=== PATIENT | male | born 1960 | race Caucasian/White ===

== ENCOUNTER 2017-11-09 00:29 | Observation (INO) | payer OTHER ==
--- OUTSIDE RECORDS SUMMARY | 2017-11-09 00:32 | XMS REPORT | Clinical Summary ---
:1960 Author Organization [facility] Address [address] [place] [address] Care Team Providers Name Role Phone Asked, No Pcp Primary Care Provider Unavailable Allergies Active Allergy Reactions Severity Noted Date Comments Codeine Rash Low 09/20/2015 "it just messes my stomach all up". "it just messes my stomach all up". Ibuprofen GI Intolerance, Nausea 02/14/2005 Hurts my stomach And Vomiting Now reports that it doesn't bother him at all Stomach Upset Nitro Swelling 06/26/2015 Pt reports tongue swelling. Nitroglycerin 09/20/2015 Tongue swelling Pseudoephedrine-Ibuprofe Rash Low 11/06/2007 n Quetiapine 06/15/2017 Pt states that he gets the shakes Tramadol Rash, GI Intolerance Low 09/05/2017 Trazodone Other (See Comments) 06/15/2017 PT states that he gets shakes Current Medications Prescription Sig. Disp. Refills Start Date End Date Status aspirin (ECOTRIN) Take 81 mg by 09/01/2015 Active 81 MG enteric mouth every coated tablet morning. atorvastatin Take 40 mg by 09/01/2015 Active (LIPITOR) 40 MG mouth every tablet morning. SYMBICORT 160-4.5 inhale 1 puff 3 08/29/2015 Active mcg/actuation by mouth twice inhaler daily albuterol (PROAIR Inhale 2 puffs Active HFA,PROVENTIL every 4 (four) HFA,VENTOLIN HFA) hours as needed 90 mcg/actuation for wheezing or inhaler shortness of breath. busPIRone (BUSPAR) Take 10 mg by Active 10 MG tablet mouth 2 (two) times a day. HYDROcodone-acetami Take 1 tablet Active nophen (NORCO) by mouth every 10-325 mg per 8 (eight) hours tablet as needed for moderate pain. sertraline (ZOLOFT) Take 50 mg by 06/16/2017 Active 50 MG tablet mouth every morning. levothyroxine Take 112 mcg by 06/16/2017 Active (SYNTHROID, mouth every LEVOXYL) 112 mcg morning. tablet metoprolol Take 25 mg by 06/04/2017 Active succinate XL mouth every (TOPROL-XL) 25 mg morning. 24 hr tablet XARELTO 20 mg Take 20 mg by 08/22/2017 Active tablet mouth every morning. thiamine 100 MG Take 100 mg by Active tablet mouth every morning. levothyroxine Take 100 mcg by 09/01/2015 Discontinued (SYNTHROID, mouth daily. 8 LEVOTHROID) 100 MCG tablet fluticasone 2 sprays by Discontinued (FLONASE) 50 Each Nare route 8 mcg/actuation nasal daily. spray zolpidem (AMBIEN) 5 Take 5 mg by Discontinued MG tablet mouth nightly 8 as needed for sleep. paliperidone Inject 234 mg Discontinued palmitate (INVEGA into the 8 Sustenna) 234 shoulder, mg/1.5 mL syringe thigh, or buttocks every 28 days. lithium 150 MG Take by mouth 3 Discontinued capsule (three) times a 8 day with meals. Patient does not know dose,hasn't taken for past week QUEtiapine Take 300 mg by Discontinued (SEROquel) 100 MG mouth nightly. 8 tablet traZODone (DESYREL) Take 300 mg by Discontinued 100 MG tablet mouth nightly. 8 rivaroxaban Take 1 tablet 28 tablet 0 06/18/2017 (XARELTO) 15 mg (15 mg total) 8 tablet by mouth 2 (two) times a day for 14 days. amIODarone Take 200 mg by Discontinued (PACERONE) 200 MG mouth 2 (two) 8 tablet times a day. amIODarone Take 1 tablet 30 tablet 0 09/07/2017 (PACERONE) 200 MG (200 mg total) 8 tablet by mouth daily for 30 days. Active Problems Problem Noted Date Chest pain 09/05/2017 Pulmonary embolus 06/15/2017 Bradycardia 09/18/2016 Atrial fibrillation with RVR 09/18/2016 Bipolar 2 disorder 08/17/2016 PE (pulmonary thromboembolism) 08/17/2016 Acute renal failure 08/16/2016 Atrial fibrillation with rapid ventricular response 05/10/2016 Dysrhythmia, cardiac 04/30/2016 Chest pressure 09/20/2015 Encounters Date Type Specialty Care Team Description 10/22/2017 Emergency Emergency Kenn, Nathaly Chronic bilateral low Medicine DO Alannah back pain without sciatica (Primary Dx) 10/17/2017 Emergency Emergency Gemignani, Chronic midline low Medicine Abram Epps MD back pain, with sciatica presence unspecified (Primary Dx) 10/17/2017 Emergency Emergency Kenn, Nathaly Homicidal ideation (Primary Dx); Medicine DO Alannah Drug dependency 10/12/2017 Emergency Emergency Bray, Boi Chronic chest pain Medicine MD Rosana (Primary Dx) 10/11/2017 Emergency Emergency Walden, Chest pain in adult (Primary Dx); Medicine Mauricio Midline low back pain without sciatica, unspecified chronicity DO Abram 09/29/2017 Emergency Emergency Gemignani, Chest pain, Medicine Abram Epps MD unspecified type (Primary Dx) 09/23/2017 Emergency Emergency Gemignani, Chest pain, Medicine Abram Epps MD unspecified type (Primary Dx) 09/22/2017 Emergency Emergency Thuani, Chest pain, Medicine Clinton Bah MD unspecified type (Primary Dx) 09/22/2017 Emergency Emergency Kenneth House MD Chest pain in adult ( Primary Dx); Medicine Elevated CK 09/05/2017 - Emergency General Surgery Marcantel, Chest pain, 09/06/2017 Gurpreet Hale MD unspecified type [place], (Primary Dx) DO Jarret 06/30/2017 Patient Outreach Quality Dionne Walden, JASIEL 06/30/2017 Documentation General Internal Aris Chowdhury Medicine MD Tracey 06/28/2017 - Hospital Encounter General Internal Keshav Gamboa MD Atrial fibrillation with RVR (Primary Dx); 06/30/2017 Medicine Sade, Chest pain, unspecified type; MD Edin Dehydration; Other acute pulmonary embolism without acute cor pulmonale; Tachycardia; Anticoagulated by anticoagulation treatment 06/18/2017 Patient Outreach Quality Francia Ruiz, RN 06/15/2017 - Hospital Encounter General Surgery Nathaly Hawk Other acute pulmonary 06/18/2017 Alannah, DO embolism without acute Smith, Blair Vaca, cor pulmonale (Primary MD Dx) after 11/08/2016 Immunizations Name Dates Previously Given Next Due Tdap 08/16/2016 Social History Tobacco Use Types Packs/Day Years Used Date Current Every Day Smoker Cigars 0 Smokeless Tobacco: Never Used Tobacco Cessation: Counseling Given: Yes Alcohol Use Drinks/Week oz/Week Comments No Sex Assigned at Date Recorded Not on file Last Filed Vital Signs Vital Sign Reading Time Taken Blood Pressure 132/73 10/22/2017 2:30 AM CDT Pulse 79 10/22/2017 2:30 AM CDT Temperature 36.4 C (97.5 F) 10/22/2017 2:30 AM CDT Respiratory Rate 17 10/22/2017 2:30 AM CDT Oxygen Saturation 96% 10/22/2017 2:30 AM CDT Inhaled Oxygen Concentration - - Weight 80.3 kg (177 lb) 10/22/2017 2:30 AM CDT Height 185.4 cm (6' 1") 10/22/2017 2:30 AM CDT Body Mass Index 23.35 10/22/2017 2:30 AM CDT Plan of Treatment Health Maintenance Due Date Last Done Comments COLON CANCER SCREENING 2008 SHINGRIX VACCINE (#1) 2008 INFLUENZA VACCINE 09/29/2017 Procedures Procedure Name Priority Date/Time Associated Comments Diagnosis ECG ED PRELIMINARY Routine 10/22/2017 2:34 Results for this INTERPRETATION AM CDT procedure are in the results section. ECG 12-LEAD Routine 10/22/2017 2:30 Results for this AM CDT procedure are in the results section. CT LUMBAR SPINE WO STAT 10/17/2017 7:19 Results for this CONTRAST PM CDT procedure are in the results section. URINE DRUGS OF ABUSE STAT 10/17/2017 7:50 Results for this SCREEN AM CDT procedure are in the results section. URINALYSIS SCREEN AND STAT 10/17/2017 7:50 Results for this MICROSCOPY, WITH REFLEX AM CDT procedure are in TO CULTURE the results section. URINE CULTURE STAT 10/17/2017 7:50 Results for this AM CDT procedure are in the results section. ESTIMATED GFR STAT 10/17/2017 7:15 Results for this AM CDT procedure are in the results section. SALICYLATE LEVEL STAT 10/17/2017 7:15 Results for this AM CDT procedure are in the results section. ACETAMINOPHEN LEVEL STAT 10/17/2017 7:15 Results for this AM CDT procedure are in the results section. ALCOHOL LEVEL, BLOOD STAT 10/17/2017 7:15 Results for this AM CDT procedure are in the results section. THYROID STIMULATING STAT 10/17/2017 7:15 Results for this HORMONE AM CDT procedure are in the results section. COMPREHENSIVE METABOLIC STAT 10/17/2017 7:15 Results for this PANEL AM CDT procedure are in the results section. HC COMPLETE BLD COUNT STAT 10/17/2017 7:15 Results for this W/AUTO DIFF AM CDT procedure are in the results section. ECG ED PRELIMINARY Routine 10/17/2017 7:10 Results for this INTERPRETATION AM CDT procedure are in the results section. ECG 12-LEAD STAT 10/17/2017 6:51 Results for this AM CDT procedure are in the results section. ECG ED PRELIMINARY Routine 10/12/2017 9:29 Results for this INTERPRETATION AM CDT procedure are in the results section. ESTIMATED GFR STAT 10/12/2017 8:03 Results for this AM CDT procedure are in the results section. TROPONIN STAT 10/12/2017 8:03 Results for this AM CDT procedure are in the results section. HC COMPLETE BLD COUNT STAT 10/12/2017 8:03 Results for this W/AUTO DIFF AM CDT procedure are in the results section. BASIC METABOLIC PANEL STAT 10/12/2017 8:03 Results for this AM CDT procedure are in the results section. ECG 12-LEAD STAT 10/12/2017 7:31 Results for this AM CDT procedure are in the results section. XR LUMBAR SPINE 2 OR 3 STAT 10/11/2017 4:13 Results for this VW AM CDT procedure are in the results section. XR CHEST 1 VW PORTABLE STAT 10/11/2017 4:13 Results for this AM CDT procedure are in the results section. TROPONIN Timed 10/11/2017 3:46 Results for this AM CDT procedure are in the results section. ECG 12-LEAD STAT 10/11/2017 3:23 Results for this AM CDT procedure are in the results section. B NATRIURETIC PEPTIDE STAT 09/29/2017 3:20 Results for this PM CDT procedure are in the results section. HC COMPLETE BLD COUNT STAT 09/29/2017 3:20 Results for this W/AUTO DIFF PM CDT procedure are in the results section. ECG ED PRELIMINARY Routine 09/29/2017 3:10 Results for this INTERPRETATION PM CDT procedure are in the results section. ECG 12-LEAD STAT 09/29/2017 3:01 Results for this PM CDT procedure are in the results section. TROPONIN Timed 09/23/2017 4:55 Results for this PM CDT procedure are in the results section. XR CHEST 1 VW PORTABLE STAT 09/23/2017 2:58 Results for this PM CDT procedure are in the results section. CREATINE KINASE, TOTAL STAT 09/23/2017 2:17 Results for this (CPK) PM CDT procedure are in the results section. ESTIMATED GFR STAT 09/23/2017 2:17 Results for this PM CDT procedure are in the results section. B NATRIURETIC PEPTIDE STAT 09/23/2017 2:17 Results for this PM CDT procedure are in the results section. TROPONIN STAT 09/23/2017 2:17 Results for this PM CDT procedure are in the results section. LIPASE LEVEL STAT 09/23/2017 2:17 Results for this PM CDT procedure are in the results section. HEPATIC FUNCTION PANEL STAT 09/23/2017 2:17 Results for this PM CDT procedure are in the results section. BASIC METABOLIC PANEL STAT 09/23/2017 2:17 Results for this PM CDT procedure are in the results section. HC COMPLETE BLD COUNT STAT 09/23/2017 2:17 Results for this W/AUTO DIFF PM CDT procedure are in the results section. ECG ED PRELIMINARY Routine 09/23/2017 2:03 Results for this INTERPRETATION PM CDT procedure are in the results section. ECG 12-LEAD Routine 09/23/2017 1:56 Results for this PM CDT procedure are in the results section. ED REFERRAL TO [place] Routine 09/22/2017 9:44 VOODOO PHYSICIAN AM CDT ORGANIZATION ECG ED PRELIMINARY Routine 09/22/2017 8:58 Results for this INTERPRETATION AM CDT procedure are in the results section. SMEAR REVIEW STAT 09/22/2017 8:26 Results for this AM CDT procedure are in the results section. CREATINE KINASE, TOTAL STAT 09/22/2017 8:26 Results for this (CPK) AM CDT procedure are in the results section. ESTIMATED GFR STAT 09/22/2017 8:26 Results for this AM CDT procedure are in the results section. HC COMPLETE BLD COUNT STAT 09/22/2017 8:26 Results for this W/AUTO DIFF AM CDT procedure are in the results section. TROPONIN STAT 09/22/2017 8:26 Results for this AM CDT procedure are in the results section. COMPREHENSIVE METABOLIC STAT 09/22/2017 8:26 Results for this PANEL AM CDT procedure are in the results section. ECG 12-LEAD STAT 09/22/2017 8:15 Results for this AM CDT procedure are in the results section. MANUAL DIFFERENTIAL STAT 09/22/2017 1:20 Results for this AM CDT procedure are in the results section. CREATINE KINASE, TOTAL STAT 09/22/2017 1:20 Results for this (CPK) AM CDT procedure are in the results section. C-REACTIVE PROTEIN STAT 09/22/2017 1:20 Results for this AM CDT procedure are in the results section. MAGNESIUM LEVEL STAT 09/22/2017 1:20 Results for this AM CDT procedure are in the results section. PHOSPHORUS LEVEL STAT 09/22/2017 1:20 Results for this AM CDT procedure are in the results section. ESTIMATED GFR STAT 09/22/2017 1:20 Results for this AM CDT procedure are in the results section. B NATRIURETIC PEPTIDE STAT 09/22/2017 1:20 Results for this AM CDT procedure are in the results section. TROPONIN STAT 09/22/2017 1:20 Results for this AM CDT procedure are in the results section. COMPREHENSIVE METABOLIC STAT 09/22/2017 1:20 Results for this PANEL AM CDT procedure are in the results section. PARTIAL THROMBOPLASTIN STAT 09/22/2017 1:20 Results for this TIME (PTT) AM CDT procedure are in the results section. PROTHROMBIN TIME WITH STAT 09/22/2017 1:20 Results for this INR AM CDT procedure are in the results section. CBC WITH PLATELET AND STAT 09/22/2017 1:20 Results for this DIFFERENTIAL AM CDT procedure are in the results section. ECG 12-LEAD STAT 09/22/2017 12:20 Results for this AM CDT procedure are in the results section. NM MYOCARDIAL PERFUSION Routine 09/06/2017 2:04 Results for this REST STRESS 1 DAY PM CDT procedure are in the results section. CV STRESS TEST NUCLEAR Routine 09/06/2017 2:04 Results for this CARDIO PM CDT procedure are in the results section. ECG 12-LEAD Routine 09/06/2017 9:25 Results for this AM CDT procedure are in the results section. ESTIMATED GFR Routine 09/06/2017 5:15 Results for this AM CDT procedure are in the results section. BASIC METABOLIC PANEL Routine 09/06/2017 5:15 Results for this AM CDT procedure are in the results section. HC COMPLETE BLD COUNT Routine 09/06/2017 5:15 Results for this W/AUTO DIFF AM CDT procedure are in the results section. TROPONIN Timed 09/05/2017 7:55 Results for this PM CDT procedure are in the results section. TROPONIN Timed 09/05/2017 4:10 Results for this PM CDT procedure are in the results section. TROPONIN Timed 09/05/2017 10:57 Results for this AM CDT procedure are in the results section. ECHOCARDIOGRAM 2D Routine 09/05/2017 10:45 Results for this COMPLETE W MMODE AM CDT procedure are in SPECTRAL COLOR DOPPLER the results (41162) section. URINE DRUGS OF ABUSE STAT 09/05/2017 9:05 Results for this SCREEN AM CDT procedure are in the results section. URINALYSIS SCREEN AND Routine 09/05/2017 9:05 Results for this MICROSCOPY, WITH REFLEX AM CDT procedure are in TO CULTURE the results section. URINE CULTURE Routine 09/05/2017 9:05 Results for this AM CDT procedure are in the results section. XR CHEST 1 VW PORTABLE STAT 09/05/2017 7:06 Results for this AM CDT procedure are in the results section. ESTIMATED GFR STAT 09/05/2017 6:57 Results for this AM CDT procedure are in the results section. B NATRIURETIC PEPTIDE STAT 09/05/2017 6:57 Results for this AM CDT procedure are in the results section. TROPONIN STAT 09/05/2017 6:57 Results for this AM CDT procedure are in the results section. ALCOHOL LEVEL, BLOOD STAT 09/05/2017 6:57 Results for this AM CDT procedure are in the results section. LIPASE LEVEL STAT 09/05/2017 6:57 Results for this AM CDT procedure are in the results section. COMPREHENSIVE METABOLIC STAT 09/05/2017 6:57 Results for this PANEL AM CDT procedure are in the results section. PARTIAL THROMBOPLASTIN STAT 09/05/2017 6:57 Results for this TIME (PTT) AM CDT procedure are in the results section. PROTHROMBIN TIME WITH STAT 09/05/2017 6:57 Results for this INR AM CDT procedure are in the results section. HC COMPLETE BLD COUNT STAT 09/05/2017 6:57 Results for this W/AUTO DIFF AM CDT procedure are in the results section. ECG 12-LEAD Routine 09/05/2017 6:54 Results for this AM CDT procedure are in the results section. ECG 12-LEAD STAT 09/05/2017 6:49 Results for this AM CDT procedure are in the results section. ECG ED PRELIMINARY Routine 09/05/2017 6:44 Results for this INTERPRETATION AM CDT procedure are in the results section. NM MYOCARDIAL PERFUSION Routine 06/30/2017 9:50 Results for this REST STRESS 2 DAY AM CDT procedure are in the results section. CV STRESS TEST NUCLEAR Routine 06/30/2017 9:50 Results for this CARDIO AM CDT procedure are in the results section. SMEAR REVIEW Routine 06/29/2017 4:55 Results for this AM CDT procedure are in the results section. ESTIMATED GFR Routine 06/29/2017 4:55 Results for this AM CDT procedure are in the results section. COMPREHENSIVE METABOLIC Routine 06/29/2017 4:55 Results for this PANEL AM CDT procedure are in the results section. HC COMPLETE BLD COUNT Routine 06/29/2017 4:55 Results for this W/AUTO DIFF AM CDT procedure are in the results section. TROPONIN Timed 06/28/2017 9:30 Results for this PM CDT procedure are in the results section. URINALYSIS SCREEN AND STAT 06/28/2017 5:34 Results for this MICROSCOPY, WITH REFLEX PM CDT procedure are in TO CULTURE the results section. URINE DRUGS OF ABUSE STAT 06/28/2017 5:34 Results for this SCREEN PM CDT procedure are in the results section. URINE CULTURE STAT 06/28/2017 5:34 Results for this PM CDT procedure are in the results section. TROPONIN Timed 06/28/2017 5:15 Results for this PM CDT procedure are in the results section. ECG 12-LEAD STAT 06/28/2017 2:26 Results for this PM CDT procedure are in the results section. ECG 12-LEAD Routine 06/28/2017 2:25 Results for this PM CDT procedure are in the results section. ECHOCARDIOGRAM 2D Routine 06/28/2017 2:15 Results for this COMPLETE W MMODE PM CDT procedure are in SPECTRAL COLOR DOPPLER the results (85263) section. XR CHEST 1 VW PORTABLE STAT 06/28/2017 1:20 Results for this PM CDT procedure are in the results section. T4, FREE STAT 06/28/2017 1:16 Results for this PM CDT procedure are in the results section. THYROID STIMULATING STAT 06/28/2017 1:16 Results for this HORMONE PM CDT procedure are in the results section. ESTIMATED GFR STAT 06/28/2017 1:06 Results for this PM CDT procedure are in the results section. PHOSPHORUS LEVEL STAT 06/28/2017 1:06 Results for this PM CDT procedure are in the results section. MAGNESIUM LEVEL STAT 06/28/2017 1:06 Results for this PM CDT procedure are in the results section. B NATRIURETIC PEPTIDE STAT 06/28/2017 1:06 Results for this PM CDT procedure are in the results section. CREATINE KINASE, TOTAL STAT 06/28/2017 1:06 Results for this (CPK) PM CDT procedure are in the results section. TROPONIN STAT 06/28/2017 1:06 Results for this PM CDT procedure are in the results section. PARTIAL THROMBOPLASTIN STAT 06/28/2017 1:06 Results for this TIME (PTT) PM CDT procedure are in the results section. PROTHROMBIN TIME WITH STAT 06/28/2017 1:06 Results for this INR PM CDT procedure are in the results section. COMPREHENSIVE METABOLIC STAT 06/28/2017 1:06 Results for this PANEL PM CDT procedure are in the results section. HC COMPLETE BLD COUNT STAT 06/28/2017 1:06 Results for this W/AUTO DIFF PM CDT procedure are in the results section. ECG ED PRELIMINARY Routine 06/28/2017 1:01 Results for this INTERPRETATION PM CDT procedure are in the results section. ECG ED PRELIMINARY Routine 06/28/2017 1:01 Results for this INTERPRETATION PM CDT procedure are in the results section. [place] CRITICAL CARE, E/M Routine 06/28/2017 1:01 Results for this 30-74 MINUTES PM CDT procedure are in the results section. ECG 12-LEAD STAT 06/28/2017 12:47 Results for this PM CDT procedure are in the results section. ANTI XA, UNFRACTIONATED Routine 06/18/2017 5:19 Results for this AM CDT procedure are in the results section. CBC HEMOGRAM Routine 06/18/2017 5:19 Results for this AM CDT procedure are in the results section. ANTI XA, UNFRACTIONATED Routine 06/17/2017 10:43 Results for this AM CDT procedure are in the results section. ANTI XA, UNFRACTIONATED Routine 06/17/2017 4:30 Results for this AM CDT procedure are in the results section. ANTI XA, UNFRACTIONATED Timed 06/16/2017 6:11 Results for this PM CDT procedure are in the results section. ECHOCARDIOGRAM 2D Routine 06/16/2017 4:15 Results for this COMPLETE W MMODE PM CDT procedure are in SPECTRAL COLOR DOPPLER the results (99169) section. US DUPLEX VENOUS LOWER Routine 06/16/2017 3:50 Results for this EXTREMITY BILATERAL PM CDT procedure are in the results section. ANTI XA, UNFRACTIONATED Routine 06/16/2017 11:27 Results for this AM CDT procedure are in the results section. ANTI XA, UNFRACTIONATED Routine 06/16/2017 3:34 Results for this AM CDT procedure are in the results section. ANTI XA, UNFRACTIONATED Routine 06/15/2017 7:53 Results for this PM CDT procedure are in the results section. TROPONIN Timed 06/15/2017 6:55 Results for this PM CDT procedure are in the results section. CT ANGIOGRAM PE CHEST STAT 06/15/2017 6:28 Results for this PM CDT procedure are in the results section. XR CHEST 1 VW PORTABLE STAT 06/15/2017 5:45 Results for this PM CDT procedure are in the results section. URINE DRUGS OF ABUSE STAT 06/15/2017 3:40 Results for this SCREEN PM CDT procedure are in the results section. D-DIMER STAT 06/15/2017 2:56 Results for this PM CDT procedure are in the results section. [place] CRITICAL CARE, E/M Routine 06/15/2017 2:50 Results for this 30-74 MINUTES PM CDT procedure are in the results section. ESTIMATED GFR STAT 06/15/2017 2:50 Results for this PM CDT procedure are in the results section. B NATRIURETIC PEPTIDE STAT 06/15/2017 2:50 Results for this PM CDT procedure are in the results section. TROPONIN STAT 06/15/2017 2:50 Results for this PM CDT procedure are in the results section. CREATINE KINASE, TOTAL STAT 06/15/2017 2:50 Results for this (CPK) PM CDT procedure are in the results section. BASIC METABOLIC PANEL STAT 06/15/2017 2:50 Results for this PM CDT procedure are in the results section. PARTIAL THROMBOPLASTIN STAT 06/15/2017 2:50 Results for this TIME (PTT) PM CDT procedure are in the results section. PROTHROMBIN TIME WITH STAT 06/15/2017 2:50 Results for this INR PM CDT procedure are in the results section. HC COMPLETE BLD COUNT STAT 06/15/2017 2:50 Results for this W/AUTO DIFF PM CDT procedure are in the results section. ECG 12-LEAD STAT 06/15/2017 2:47 Results for this PM CDT procedure are in the results section. after 11/08/2016 Results ECG ED Preliminary Interpretation - NOT AN ORDER (10/22/2017 2:34 AM)Only the most recent of9 resultswithin the time period is included. Narrative Performed At Nathaly Hawk DO 10/22/20173:02 AM ECG ED Preliminary Interpretation - Not an Order Performed by: NATHALY HAWK Authorized by: NATHALY HAWK ECG reviewed by ED Physician in the absence of a administrative support associate: yes (read at 0230) Interpretation: Interpretation: normal Rate: ECG rate:79 ECG rate assessment: normal Rhythm: Rhythm: paced Ectopy: Ectopy: none QRS: QRS axis:Normal Conduction: Conduction: normal ST segments: ST segments:Normal T waves: T waves: normal ECG 12 lead (10/22/2017 2:30 AM)Only the most recent of15 resultswithin the time period is included. Ventricular rate 79 [facility] Atrial rate 79 [facility] [place] interval 128 [facility] QRSD interval 132 [facility] QT interval 428 [facility] QTC interval 490 [facility] P axis 1 68 [facility] QRS axis 1 208 [facility] T wave axis 74 [facility] EKG impression Atrial-sensed ventricular-paced rhythm-Abnormal ECG-In automated comparison with ECG of 17-OCT-2017 06:51,-Electronic ventricular pacemaker has replaced Sinus rhythm-Left atrial enlargement-Electronical [facility] ly Signed By Zoraida Mckenzie MD ([id number]) on 10/22/2017 2:09:56 PM Performing Organization Address City/State/Zipcode Phone Number [facility] [address] [place] [address] CT Lumbar Spine Wo Contrast (10/17/2017 7:19 PM) Narrative Performed At Examination: CT lumbar spine without. [employer]IANT Clinical History: low back pain weakness COMPARISON: None TECHNIQUE: Axial 2 mm sections with coronal and sagittal reconstructions. Intravenous contrast was not given. . FINDINGS: The vertebral bodies are normal in height. There are no compression fractures. There are no signs of acute trauma. L1-2: Mild disc space narrowing. L2-3: Disc space collapse with moderate right posterior and right lateral disc space bulging. No foraminal stenosis. L3-4: Disc space collapse. Moderate diffuse posterior disc protrusion and bilateral facet hypertrophy with moderate canal stenosis. Diffuse extraforaminal right disc protrusion. L4-5: Moderate to large diffuse posterior intervertebral disc protrusion with disc space collapse. Moderate bilateral intraforaminal and right extraforaminal disc protrusion. Moderate canal stenosis. L5-S1: Disc space collapse. Diffuse moderate posterior and bilateral intraforaminal disc protrusion with facet hypertrophy. Mild canal stenosis. IMPRESSION: Degenerative spondylosis with no compression fractures and no subluxations. There is canal stenosis and bilateral foraminal stenosis at L4-5 and L5-S1. [facility]-[id number] Procedure Note Interface, Radiology Results - 10/17/2017 8:07 PM CDT Examination: CT lumbar spine without. Clinical History: low back pain weakness COMPARISON: None TECHNIQUE: Axial 2 mm sections with coronal and sagittal reconstructions. Intravenous contrast was not given. . FINDINGS: The vertebral bodies are normal in height. There are no compression fractures. There are no signs of acute trauma. L1-2: Mild disc space narrowing. L2-3: Disc space collapse with moderate right posterior and right lateral disc space bulging. No foraminal stenosis. L3-4: Disc space collapse. Moderate diffuse posterior disc protrusion and bilateral facet hypertrophy with moderate canal stenosis. Diffuse extraforaminal right disc protrusion. L4-5: Moderate to large diffuse posterior intervertebral disc protrusion with disc space collapse. Moderate bilateral intraforaminal and right extraforaminal disc protrusion. Moderate canal stenosis. L5-S1: Disc space collapse. Diffuse moderate posterior and bilateral intraforaminal disc protrusion with facet hypertrophy. Mild canal stenosis. IMPRESSION: Degenerative spondylosis with no compression fractures and no subluxations. There is canal stenosis and bilateral foraminal stenosis at L4-5 and L5-S1. [facility] [place]-[id number] Performing Organization Address City/State/Zipcode Phone Number [facility] [address] [place] [address] Urinalysis screen and microscopy, with reflex to culture (10/17/2017 7:50 AM) Only the most recent of3 resultswithin the time period is included. Specimen site Clean catch [facility] [place] DEPARTMENT OF PATHOLOGY AND GENOMIC MEDICINE Color, UA Yellow [facility] [place] DEPARTMENT OF PATHOLOGY AND GENOMIC MEDICINE Appearance, UA Clear [facility] [place] DEPARTMENT OF PATHOLOGY AND GENOMIC MEDICINE Specific gravity, UA 1.020 1.001 - 1.035 [facility] [place] DEPARTMENT OF PATHOLOGY AND GENOMIC MEDICINE pH, UA 5.0 5.0 - 8.5 [facility] [place] DEPARTMENT OF PATHOLOGY AND GENOMIC MEDICINE Protein, UA Negative Negative [facility] [place] DEPARTMENT OF PATHOLOGY AND GENOMIC MEDICINE Glucose, UA Negative Negative [facility] [place] DEPARTMENT OF PATHOLOGY AND GENOMIC MEDICINE Ketones, UA Negative Negative [facility] [place] DEPARTMENT OF PATHOLOGY AND GENOMIC MEDICINE Bilirubin, UA Negative Negative [facility] [place] DEPARTMENT OF PATHOLOGY AND GENOMIC MEDICINE Blood, UA Negative Negative [facility] [place] DEPARTMENT OF PATHOLOGY AND GENOMIC MEDICINE Nitrite, UA Negative Negative [facility] [place] DEPARTMENT OF PATHOLOGY AND GENOMIC MEDICINE Urobilinogen, UA Negative <2.0 [facility] [place] DEPARTMENT OF PATHOLOGY AND GENOMIC MEDICINE Leukocyte esterase, UA Negative Negative [facility] [place] DEPARTMENT OF PATHOLOGY AND GENOMIC MEDICINE Epithelial cells, UA Few /HPF [facility] [place] DEPARTMENT OF PATHOLOGY AND GENOMIC MEDICINE WBC, UA 2 0 - 1 /HPF [facility] [place] DEPARTMENT OF PATHOLOGY AND GENOMIC MEDICINE RBC, UA <1 0 - 5 /HPF [facility] [place] DEPARTMENT OF PATHOLOGY AND GENOMIC MEDICINE Bacteria, UA None seen None seen [facility] [place] DEPARTMENT OF PATHOLOGY AND GENOMIC MEDICINE Yeast, UA None seen [facility] [place] DEPARTMENT OF PATHOLOGY AND GENOMIC MEDICINE Yeast with pseudohyphae, UA None seen [facility] [place] DEPARTMENT OF PATHOLOGY AND GENOMIC MEDICINE Specimen Urine Performing Organization Address City/[facility]/Zipcode Phone Number [facility] [place] [facility] DEPARTMENT OF PATHOLOGY AND [facility] [place] [address] [facility] Urine drugs of abuse screen (10/17/2017 7:50 AM)Only the most recent of4 resultswithin the time period is included. Amphetamine screen, urine Negative [facility] [place] DEPARTMENT OF PATHOLOGY AND GENOMIC MEDICINE Barbiturate screen, urine Negative [facility] [place] DEPARTMENT OF PATHOLOGY AND GENOMIC MEDICINE Benzodiazepine screen, Negative [facility] [place] DEPARTMENT OF urine PATHOLOGY AND GENOMIC MEDICINE Cocaine screen, urine Negative [facility] [place] DEPARTMENT OF PATHOLOGY AND [facility] MEDICINE Methadone screen, urine Negative [facility] [place] DEPARTMENT OF PATHOLOGY AND [facility] MEDICINE Opiates screen, urine Positive (A) [facility] DEPARTMENT OF PATHOLOGY AND [facility] MEDICINE Phencyclidine screen, urine Negative [facility] [place] [facility] DEPARTMENT OF PATHOLOGY AND [facility] MEDICINE Cannabinoid screen, urine Negative [facility] [place] [facility] DEPARTMENT OF Comment: PATHOLOGY AND GENOMIC Drug screen minimum concentration of detectability MEDICINE Hqpaszzbjokr0071 ng/mL Gkkquemhumitccqf9652 ng/mL Barbiturates 300 ng/mL Omfcourikamxaxx546 ng/mL Zpjinws379 ng/mL Uqnesrrsw304 ng/mL Mrozxmb127 ng/mL Phencyclidine 25 ng/mL Bvvqzqnxtwhj57 ng/mL Emzzxcxfzk8608 ng/mL Negative test results indicates presumptive evidence of lack of clinically significant drug concentration in this urine specimen. Positive test results are presumptive evidence of clinically significant drug concentration in this urine specimen. Testing performed for medical purposes only. Specimen Urine Performing Organization Address City/State/Zipcode Phone Number [facility] [place] DEPARTMENT OF PATHOLOGY AND [address] [facility] Jose Alfredo. [place] [phone] [place] [address] Urine culture (10/17/2017 7:50 AM)Only the most recent of3 resultswithin the time period is included. Urine culture SEE COMMENTComment: Bacteriuria [facility] [place] DEPARTMENT OF PATHOLOGY screen negative. AND GENOMIC MEDICINE Specimen Urine Performing Organization Address City/State/Zipcode Phone Number [facility] [place] DEPARTMENT OF PATHOLOGY AND [address] [facility] Jose Alfredo. [place], [place] [phone] [place] [address] Estimated GFR (10/17/2017 7:15 AM)Only the most recent of10 resultswithin the time period is included. GFR Non Af Amer 56 (A) mL/min/1.73 m2 [facility] [place] DEPARTMENT OF PATHOLOGY AND [facility] MEDICINE GFR Af Amer 68 mL/min/1.73 m2 [facility] [place] DEPARTMENT OF Comment: PATHOLOGY AND [facility] Chronic kidney disease: <60 mL/min/1.73m2 MEDICINE Kidney failure: <15 mL/min/1.73m2 The estimated GFR is calculated from the IDMS-traceable Modification of Diet in Renal Disease Equation. The accuracy of the calculation is poor when the creatinine is normal. Calculated values >90 mL/min/1.73m2 are not reported. This equation has not been validated in children (<18 years), women, the elderly (>70 years), or ethnic groups other than Caucasians and Americans. Specimen Plasma specimen Performing Organization Address City/State/Zipcode Phone Number [facility] [place] DEPARTMENT OF PATHOLOGY AND [address] [place] [address] [facility] CBC with platelet and differential (10/17/2017 7:15 AM)Only the most recent of11 resultswithin the time period is included. WBC 14.2 (H) 4.2 - 11.0 k/uL [facility] [place] DEPARTMENT OF PATHOLOGY AND GENOMIC MEDICINE RBC 3.25 (L) 4.04 - 5.86 m/uL [facility] [place] DEPARTMENT OF PATHOLOGY AND GENOMIC MEDICINE HGB 10.8 (L) 13.0 - 17.3 g/dL [facility] [place] DEPARTMENT OF PATHOLOGY AND GENOMIC MEDICINE HCT 34.0 34.0 - 45.0 % [facility] [place] DEPARTMENT OF PATHOLOGY AND GENOMIC MEDICINE MCV 104.6 (H) 80.0 - 98.0 fL [facility] [place] DEPARTMENT OF PATHOLOGY AND GENOMIC MEDICINE MCH 33.2 27.0 - 34.0 pg [facility] [place] DEPARTMENT OF PATHOLOGY AND GENOMIC MEDICINE MCHC 31.8 31.5 - 36.5 g/dL [facility] [place] DEPARTMENT OF PATHOLOGY AND GENOMIC MEDICINE RDW - SD 59.0 (H) 37.0 - 51.0 fL [facility] [place] DEPARTMENT OF PATHOLOGY AND GENOMIC MEDICINE MPV 8.9 7.4 - 10.4 fL [facility] [place] DEPARTMENT OF PATHOLOGY AND GENOMIC MEDICINE Platelet count 415 (H) 150 - 400 k/uL [facility] [place] DEPARTMENT OF PATHOLOGY AND GENOMIC MEDICINE Nucleated RBC 0.00 /100 WBC [facility] [place] DEPARTMENT OF PATHOLOGY AND GENOMIC MEDICINE Neutrophils 55.9 36.0 - 66.0 % [facility] [place] DEPARTMENT OF PATHOLOGY AND GENOMIC MEDICINE Lymphocytes 33.1 24.0 - 44.0 % [facility] [place] DEPARTMENT OF PATHOLOGY AND GENOMIC MEDICINE Monocytes 7.3 (H) 0.0 - 6.0 % [facility] [place] DEPARTMENT OF PATHOLOGY AND GENOMIC MEDICINE Eosinophils 2.5 0.0 - 6.0 % [facility] [place] DEPARTMENT OF PATHOLOGY AND GENOMIC MEDICINE Basophils 0.8 0.0 - 1.2 % [facility] [place] DEPARTMENT OF PATHOLOGY AND GENOMIC MEDICINE Immature granulocytes 0.4 0.0 - 1.0 % [facility] [place] DEPARTMENT OF PATHOLOGY AND GENOMIC MEDICINE Specimen Blood Performing Organization Address City/State/Zipcode Phone Number [facility] [place] DEPARTMENT OF PATHOLOGY AND [place] [address] [facility] Thyroid stimulating hormone (10/17/2017 7:15 AM)Only the most recent of2 resultswithin the time period is included. TSH 1.68 0.27 - 4.20 uIU/mL [facility] [place] DEPARTMENT OF PATHOLOGY AND GENOMIC MEDICINE Specimen Plasma specimen Performing Organization Address City/[facility] Cent[facility] Phone Number [facility] [place] DEPARTMENT OF PATHOLOGY AND [address] [place], [place] [phone] [place] [address] Alcohol level, blood (10/17/2017 7:15 AM)Only the most recent of2 resultswithin the time period is included. Alcohol None Detected mg/dL [facility] [place] DEPARTMENT OF PATHOLOGY Comment: AND GENOMIC MEDICINE NormalNone Detected Legal Intoxication in [place] 80 mg/dL (0.08%) Toxic Concentration 200 mg/dL (0.2%) Potentially Fatal 350-500 mg/dL (0.35%-0.5%) Alcohol percent None Detected % [facility] [place] DEPARTMENT OF PATHOLOGY AND GENOMIC MEDICINE Specimen Blood Performing Organization Address [facility] Phone Number [facility] [place] DEPARTMENT OF PATHOLOGY AND [address] [facility] Acetaminophen level (10/17/2017 7:15 AM) Acetaminophen level <15.3 10.0 - 30.0 ug/mL [facility] [place] DEPARTMENT OF Comment: PATHOLOGY AND GENOMIC Therapeutic 10-30 ug/mL MEDICINE Possible Toxicity 150-200 ug/mL Probable Toxicity >200 ug/mL Specimen Blood Performing Organization Address City/[facility] Centercowv Phone Number [facility] [place] DEPARTMENT OF PATHOLOGY AND [address] [place], [place] [phone] [place] [address] Salicylate level (10/17/2017 7:15 AM) Salicylate <0.4 (L) 3.0 - 30.0 mg/dL [facility] [place] DEPARTMENT OF PATHOLOGY AND Comment: GENOMIC MEDICINE Therapeutic Range: 5 - 30 mg/dL Specimen Blood Performing Organization Address City/[facility] Centercode Phone Number [facility] [place] DEPARTMENT OF PATHOLOGY AND [address] [facility] [place], [place] [phone] [place] [address] Comprehensive metabolic panel (10/17/2017 7:15 AM)Only the most recent of6 resultswithin the time period is included. Sodium 142 135 - 150 mEq/L [facility] [place] DEPARTMENT OF PATHOLOGY AND GENOMIC MEDICINE Potassium 4.8 3.5 - 5.0 mEq/L [facility] [place] DEPARTMENT OF PATHOLOGY AND GENOMIC MEDICINE Chloride 107 98 - 112 mEq/L [facility] [place] DEPARTMENT OF PATHOLOGY AND GENOMIC MEDICINE CO2 21 (L) 24 - 31 mmol/L [facility] [place] DEPARTMENT OF PATHOLOGY AND GENOMIC MEDICINE Anion gap 14@ANIO 7 - 15 mEq/L [facility] [place] DEPARTMENT OF PATHOLOGY AND GENOMIC MEDICINE BUN 30 (H) 7 - 18 mg/dL [facility] [place] DEPARTMENT OF PATHOLOGY AND GENOMIC MEDICINE Creatinine 1.30 (H) 0.70 - 1.20 mg/dL [facility] [place] DEPARTMENT OF PATHOLOGY AND GENOMIC MEDICINE Glucose 81 65 - 100 mg/dL [facility] [place] DEPARTMENT OF PATHOLOGY AND GENOMIC MEDICINE Calcium 9.3 8.3 - 10.2 mg/dL [facility] [place] DEPARTMENT OF PATHOLOGY AND GENOMIC MEDICINE Protein 6.9 6.3 - 8.3 g/dL [facility] [place] DEPARTMENT OF PATHOLOGY AND GENOMIC MEDICINE Albumin 3.7 3.5 - 5.0 g/dL [facility] [place] DEPARTMENT OF PATHOLOGY AND GENOMIC MEDICINE A/G ratio 1.2 0.7 - 3.8 [facility] [place] DEPARTMENT OF PATHOLOGY AND GENOMIC MEDICINE Alkaline phosphatase 104 0 - 129 U/L [facility] [place] DEPARTMENT OF PATHOLOGY AND GENOMIC MEDICINE AST 68 (H) 10 - 50 U/L [facility] [place] DEPARTMENT OF PATHOLOGY AND GENOMIC MEDICINE ALT 80 (H) 5 - 50 U/L [facility] [place] DEPARTMENT OF PATHOLOGY AND GENOMIC MEDICINE Total bilirubin <0.3 0.2 - 1.2 mg/dL [facility] [place] DEPARTMENT OF PATHOLOGY AND GENOMIC MEDICINE Specimen Plasma specimen Performing Organization Address City/State/Zipcode Phone Number [facility] [place] DEPARTMENT OF PATHOLOGY AND [address] [place] [address] [facility] Troponin (10/12/2017 8:03 AM)Only the most recent of15 resultswithin the time period is included. Troponin <0.10 0.00 - 0.10 ng/mL [facility] DEPARTMENT OF PATHOLOGY Comment: AND GENOMIC MEDICINE 0.11 - 1.49 ng/mlMay indicate increased risk of acute coronary syndrome. >=1.5 ng/mlConsistent with acute myocardial infarction. The diagnostic value of a single normal or non-diagnostic result is questionable.Serial samples at 2-6 hour intervals are required to rule out acute myocardial injury. Specimen Plasma specimen Performing Organization Address City/State/Zipcode Phone Number [facility] DEPARTMENT OF PATHOLOGY AND [address] [place] [address] [facility] Basic metabolic panel (10/12/2017 8:03 AM)Only the most recent of4 resultswithin the time period is included. Sodium 139 135 - 148 mEq/L [facility] DEPARTMENT OF PATHOLOGY AND GENOMIC MEDICINE Potassium 4.4 3.5 - 5.0 mEq/L [facility] DEPARTMENT OF PATHOLOGY AND GENOMIC MEDICINE Chloride 104 99 - 109 mEq/L [facility] DEPARTMENT OF PATHOLOGY AND GENOMIC MEDICINE CO2 23 (L) 24 - 31 mEq/L [facility] DEPARTMENT OF PATHOLOGY AND GENOMIC MEDICINE Anion gap 12@ANIO 7 - 15 mEq/L [facility] DEPARTMENT OF PATHOLOGY AND GENOMIC MEDICINE BUN 26 (H) 8 - 24 mg/dL [facility] DEPARTMENT OF PATHOLOGY AND GENOMIC MEDICINE Creatinine 1.2 0.5 - 1.5 mg/dL [facility] DEPARTMENT OF PATHOLOGY AND GENOMIC MEDICINE Glucose 124 (H) 65 - 99 mg/dL [facility] DEPARTMENT OF PATHOLOGY AND GENOMIC MEDICINE Calcium 8.9 8.6 - 10.6 mg/dL [facility] DEPARTMENT OF PATHOLOGY AND GENOMIC MEDICINE Specimen Plasma specimen Performing Organization Address City/State/Zipcode Phone Number [facility] DEPARTMENT OF PATHOLOGY AND [address] [place] [address] [facility] XR Lumbar Spine 2 Or 3 Vw (10/11/2017 4:13 AM) Narrative Performed At EXAMINATION:XR LUMBAR SPINE 2 OR 3 VW [facility] CLINICAL HISTORY:low back pain after fever COMPARISON:08/22/2015 FINDINGS: 3 views of the lumbar spine are provided. There are 5 lumbar-type vertebrae. Vertebral body heights are maintained and there is no acute fracture. There is degenerative disc disease and facet arthropathy throughout the lumbar spine. There are small degenerative retrolistheses of the mid to lower lumbar spine. There is an IVC filter. IMPRESSION: No acute osseous abnormality of the lumbar spine. [facility]-[id number] Procedure Note Interface, Radiology Results Incoming - 10/11/2017 4:36 AM CDT EXAMINATION: XR LUMBAR SPINE 2 OR 3 VW CLINICAL HISTORY: low back pain after fever COMPARISON: 08/22/2015 FINDINGS: 3 views of the lumbar spine are provided. There are 5 lumbar-type vertebrae. Vertebral body heights are maintained and there is no acute fracture. There is degenerative disc disease and facet arthropathy throughout the lumbar spine. There are small degenerative retrolistheses of the mid to lower lumbar spine. There is an IVC filter. IMPRESSION: No acute osseous abnormality of the lumbar spine. [facility]-[id number] Performing Organization Address City/State/Zipcode Phone Number [facility] [address] [place] [address] XR Chest 1 Vw Portable (10/11/2017 4:13 AM)Only the most recent of5 resultswithin the time period is included. Narrative Performed At XR CHEST 1 VW PORTABLE [facility] CLINICAL INDICATION:chest pain COMPARISON:09/23/2017. IMPRESSION: There is a left-sided cardiac device and median sternotomy wires. The lungs are clear of focal consolidation. The cardiomediastinal silhouette demonstrates a normal contour. There is no pleural effusion or gross pneumothorax. There are no acute osseous abnormalities. [facility]-[id number] Procedure Note Interface, Radiology Results Incoming - 10/11/2017 4:37 AM CDT XR CHEST 1 VW PORTABLE CLINICAL INDICATION: chest pain COMPARISON: 09/23/2017. IMPRESSION: There is a left-sided cardiac device and median sternotomy wires. The lungs are clear of focal consolidation. The cardiomediastinal silhouette demonstrates a normal contour. There is no pleural effusion or gross pneumothorax. There are no acute osseous abnormalities. [facility]-[id number] Performing Organization Address [facility] Cent[facility]v Phone Number [facility] [address] [place] [address] B natriuretic peptide (09/29/2017 3:20 PM)Only the most recent of6 resultswithin the time period is included. BNP 32 0 - 100 pg/mL [facility] DEPARTMENT OF PATHOLOGY AND GENOMIC MEDICINE Specimen Blood Performing Organization Address [facility] Phone Number [facility] DEPARTMENT OF PATHOLOGY AND [address] [place] [address] Lipase level (09/23/2017 2:17 PM)Only the most recent of2 resultswithin the time period is included. Lipase 40 13 - 60 U/L [facility] DEPARTMENT OF PATHOLOGY AND GENOMIC MEDICINE Specimen Plasma specimen Performing Organization Address [facility] Phone Number [facility] DEPARTMENT OF PATHOLOGY AND [id number] [place] [address] Dr [address]uesGalienSusan [place] [phone] [facility] Creatine kinase, total (CPK) (09/23/2017 2:17 PM)Only the most recent of5 resultswithin the time period is included. Creatine kinase 184 39 - 308 U/L [facility] DEPARTMENT OF PATHOLOGY AND GENOMIC MEDICINE Specimen Plasma specimen Performing Organization Address [facility] Phone Number [facility] DEPARTMENT OF PATHOLOGY AND [id number] [place] [address] [place] [address] [facility] MEDICINE Hepatic function panel (09/23/2017 2:17 PM) Albumin 4.2 3.5 - 5.0 g/dL [facility] DEPARTMENT OF PATHOLOGY AND GENOMIC MEDICINE Total bilirubin 0.3 0.0 - 1.2 mg/dL [facility] DEPARTMENT OF PATHOLOGY AND GENOMIC MEDICINE Bilirubin direct <0.1 0.0 - 0.3 mg/dL [facility] DEPARTMENT OF PATHOLOGY AND GENOMIC MEDICINE Alkaline phosphatase 105 40 - 129 U/L [facility] DEPARTMENT OF PATHOLOGY AND GENOMIC MEDICINE Protein 7.3 6.3 - 8.3 g/dL [facility] DEPARTMENT OF Comment: PATHOLOGY AND GENOMIC [place] 4.6-7.0 g/dL MEDICINE 1 week 4.4-7.6 g/dL 7 months-1year5.1-7.3 g/dL 1-2 years5.6-7.5 g/dL >3 years6.0-8.0 g/dL 18-150 6.3-8.3 g/dL ALT 20 5 - 50 U/L [facility] DEPARTMENT OF PATHOLOGY AND GENOMIC MEDICINE AST 32 10 - 50 U/L [facility] DEPARTMENT OF PATHOLOGY AND GENOMIC MEDICINE Specimen Plasma specimen Performing Organization Address [facility] Phone Number [facility] DEPARTMENT OF PATHOLOGY AND [address] [place] [address] [place] [address] [facility] MEDICINE Smear review (09/22/2017 8:26 AM)Only the most recent of2 resultswithin the time period is included. Platelet slide review Slime slt incr [facility] DEPARTMENT OF PATHOLOGY AND GENOMIC MEDICINE Anisocytosis Moderate [facility] DEPARTMENT OF PATHOLOGY AND GENOMIC MEDICINE Ovalocytes Moderate [facility] DEPARTMENT OF PATHOLOGY AND GENOMIC MEDICINE Acanthocytes Occasional [facility] DEPARTMENT OF PATHOLOGY AND GENOMIC MEDICINE Performing Organization Address City/[facility]/Zipcode Phone Number [facility] DEPARTMENT OF PATHOLOGY AND [address] [place] [id number] GENOMIC MEDICINE Manual differential (09/22/2017 1:20 AM) Manual differential PERFORMED [facility] DEPARTMENT OF PATHOLOGY AND GENOMIC MEDICINE Neutrophils 53.0 39.0 - 69.0 % [facility] DEPARTMENT OF PATHOLOGY AND GENOMIC MEDICINE Lymphocytes 36.0 25.0 - 45.0 % [facility] DEPARTMENT OF PATHOLOGY AND GENOMIC MEDICINE Monocytes 9.0 0.0 - 10.0 % [facility] DEPARTMENT OF PATHOLOGY AND GENOMIC MEDICINE Eosinophils 1.0 0.0 - 5.0 % [facility] DEPARTMENT OF PATHOLOGY AND GENOMIC MEDICINE Basophils 1.0 0.0 - 1.0 % [facility] DEPARTMENT OF PATHOLOGY AND GENOMIC MEDICINE Metamyelocytes 0 % [facility] DEPARTMENT OF PATHOLOGY AND GENOMIC MEDICINE Promyelocytes 0 % [facility] DEPARTMENT OF PATHOLOGY AND GENOMIC MEDICINE Reactive lymphocytes Few [facility] DEPARTMENT OF PATHOLOGY AND GENOMIC MEDICINE Platelet slide review Slime slt incr [facility] DEPARTMENT OF PATHOLOGY AND GENOMIC MEDICINE Anisocytosis Moderate [facility] DEPARTMENT OF PATHOLOGY AND GENOMIC MEDICINE Ovalocytes Moderate [facility] DEPARTMENT OF PATHOLOGY AND GENOMIC MEDICINE [place] cells Moderate (A) [facility] DEPARTMENT OF PATHOLOGY AND GENOMIC MEDICINE Performing Organization Address City/[facility] Phone Number [facility] DEPARTMENT OF PATHOLOGY AND [address] [place] [address] Partial thromboplastin time, activated (09/22/2017 1:20 AM)Only the most recent of4 resultswithin the time period is included. PTT 28.2 23.0 - 36.0 sec [facility] DEPARTMENT OF PATHOLOGY Comment: AND [facility] PTT therapeutic range for unfractionated heparin is 61.0-112.0 seconds which corresponds to Anti-Xa 0.3-0.7 U/ml. Specimen Blood Performing Organization Address City/[facility] Centercowv Phone Number [facility] DEPARTMENT OF PATHOLOGY AND [address] [place] [address] Prothrombin time with INR (09/22/2017 1:20 AM)Only the most recent of4 resultswithin the time period is included. Prothrombin time 15.4 (H) 12.0 - 15.0 sec [facility] DEPARTMENT OF PATHOLOGY AND GENOMIC MEDICINE INR 1.2 [facility] DEPARTMENT OF Comment: PATHOLOGY AND GENOMIC The International Normalized Ratio (INR) is a therapeutic MEDICINE monitoring tool for patients who are stable on oral anticoagulant therapy. An INR of 2.0-3.0 is suggested for deep vein thrombosis/pulmonary embolism. Specimen Blood Performing Organization Address City/[facility] Cent[facility]ode Phone Number [facility] DEPARTMENT OF PATHOLOGY AND [address] [place] [address] C-reactive protein (09/22/2017 1:20 AM) CRP 0.45 0.00 - 0.50 mg/dL [facility] DEPARTMENT OF PATHOLOGY AND GENOMIC MEDICINE Specimen Plasma specimen Performing Organization Address City/[facility] Centercode Phone Number [facility] DEPARTMENT OF PATHOLOGY AND [address] [place] [address] Phosphorus level (09/22/2017 1:20 AM)Only the most recent of2 resultswithin the time period is included. Phosphorus 3.3 2.4 - 4.5 mg/dL [facility] DEPARTMENT OF PATHOLOGY AND GENOMIC MEDICINE Specimen Plasma specimen Performing Organization Address [facility] Phone Number [facility] DEPARTMENT OF PATHOLOGY AND [address] [place] [address] Magnesium level (09/22/2017 1:20 AM)Only the most recent of2 resultswithin the time period is included. Magnesium 2.1 1.6 - 2.6 mg/dL [facility] DEPARTMENT OF PATHOLOGY AND [facility] MEDICINE Specimen Plasma specimen Performing Organization Address [facility] Phone Number [facility] DEPARTMENT OF PATHOLOGY AND [address] [place] [address] Cv stress test (09/06/2017 2:04 PM) Resting HR 60 [facility] MUSE Resting BP 140 [facility] MUSE Peak MET Achieved 1.0 [facility] MUSE Protocol Name ELY [facility] MUSE Time in Exercise Phase 00:01:00 [facility] MUSE Max Systolic BP 140 [facility] MUSE Max Diastolic BP 80 [facility] MUSE Max Heart Rate 85 [facility] MUSE Max Predicted Heart Rate 161 [facility] MUSE Target HR Formula (220 - Age)*100% [facility] MUSE Test Indication chest pain [facility] MUSE Stress Test Impression Waveform interpreted in report [facility] MUSE associated with image study. No interpretation is provided as part of this Stress ECG report.--Electronically Signed By Sera Bailey MD ([id number]), video news editor Trisha Mccormack ([id number]) on 09/06/2017 9:56:09 AM Target HR 136.85 bpm H MUSE Performing Organization Address [facility] Phone Number [facility] MUSE [address] [place], [place] [address] Myocardial perfusion (09/06/2017 2:04 PM)Only the most recent of2 resultswithin the time period is included. Target HR 136.85 bpm [facility] Resting HR 60 BPM [facility] Resting BP 140/74 mmHg [facility] Narrative Performed At The study is normal. [facility] Study Quality: good. SPECT images demonstrate a normal perfusion study. Normal left ventricular systolic function. Performing Organization Address City/State/Zipcode Phone Number [facility] [address] [place] [address] Echocardiogram complete w contrast and 3D if needed (09/05/2017 10:45 AM) LA volume 61.0 cm3 [facility] LA Area d A4C 61 cm2 [facility] LA diam s 4.60 cm [facility] Aortic Root 2.99 cm [facility] D E excurs 1.60 [facility] E f slope 0.07 [facility] E prime lat 0.10 [facility] E scot sept 0.13 [facility] PV acc T slope 5.50 [facility] AoV Area, Vmax 3.02 cm2 [facility] AoV Area, VTI 2.78 cm2 [facility] AoV Mean PG 5.42 mmHg [facility] AoV Peak PG 10.60 mmHg [facility] AoV Vmax 1.63 m/s [facility] AoV VTI 0.35 m [facility] BSA Dumont 2.02 m2 [facility] BSA 2.03 m2 [facility] IVS,d 0.93 cm [facility] IVS/LVPW,2D 0.91 [facility] LV,d 5.14 cm [facility] LV EF,2D 65.50 % [facility] LV EF,A2C 65.71 % [facility] LV EF,A4C 56.12 % [facility] LV EF,BP 60.88 % [facility] Farhat Richards,d A2C 8.91 cm [facility] Farhat Richards,d A4C 7.41 cm [facility] Farhat Richards,s A2C 7.37 cm [facility] Farhat Richards,s A4C 6.13 cm [facility] LV,s 3.61 cm [facility] LV SV,A2C 102.32 % [facility] LV SV,A4C 70.28 % [facility] LV SV,BP 91.83 % [facility] LV Vol,d A2C 155.71 mL [facility] LV Vol,d A4C 125.23 ml [facility] LV Vol,d BP 150.82 ml [facility] LV Vol,s A2C 53.39 mL [facility] LV Vol,s A4C 54.96 ml [facility] LV Vol,s BP 59.00 nl [facility] LVOT area 3.11 cm2 [facility] LVOT Diam,S 1.99 cm [facility] LVOT Vmax 1.58 m/s [facility] LVOT VTI 0.31 m [facility] LVPWD,d 1.02 cm [facility] RVSP (TR) 36.75 mmHg [facility] TR Vpeak 2.79 mm/s [facility] MV E A ratio 1.22 mmHg [facility] RA pressure 10.00 mmHg [facility] TR pk grad 26.75 mmHg [facility] AoV area i VTI BSA Jorge 1.37 cm2/m2 [facility] LV SI MOD BP BSA [place] 45.17 ml/m2 [facility] LV Vol Index s bpmod BSA [place] 74.18 ml/m2 [facility] PV Vmn 29.02 m/s [facility] MR Vmax 3.89 m/s [facility] MR peak grad 59.43 mmHg [facility] BMI 23.09 kg/m2 [facility] E wave decelartion time 247.34 msec [facility] MV Peak A Arthur 0.78 m/s [facility] MV valve area p 1/2 method 3.07 cm2 [facility] MV Peak E Arthur 0.95 m/s [facility] MV stenosis pressure 1/2 time 71.73 ms [facility] AV LVOT peak gradient 9.95 mmHg [facility] RVSP 36.75 mmHg [facility] LV SYS VOL 54.70 ml [facility] LV MCKINNEY VOL 126.26 ml [facility] LV SI Teich 2D 35.20 ml/m2 [facility] LV SV Teich 2D 71.56 ml [facility] LV Vol s Teich PSAX 54.70 ml [facility] LVOT SI 47.82 ml/m2 [facility] BSA Haycock 2.02 m2 [facility] AoV Cusp sep 2.08 [facility] AoV Vmn 1.10 [facility] IVS s 2D 1.24 [facility] LV FS Teich 2D 29.86 [facility] MV AE ratio 0.82 [facility] LA Ao Ratio Mmode 1.52 [facility] LV FS Cube 2D 29.86 [facility] LVOT Vmn 1.03 [facility] Pt Size 185.42 [facility] Pt Wt 79.38 [facility] Ao root annulus 2.99 cm [facility] PV AT 117.65 msec [facility] Aov area Vmn 2.94 cm2 [facility] LVOT mean grad 4.87 mmHg [facility] AoV area I VMN bsa 1.45 cm2/m2 [facility] IVS pct thck PLAX 32.94 % [facility] LV SI Cube 2D 43.83 ml/m2 [facility] LV SV Cube 2D 89.12 ml [facility] LV vol d cube 2D 136.06 ml [facility] LV vol s cube 2D 46.94 ml [facility] LVPW pct thck PLAX 34.80 % [facility] LVPW s PLAX 1.37 cm [facility] MV Decel slope 3.84 m/s2 [facility] LA Vol MOD A4C 61.28 ml [facility] Velocity Ratio (V1/V2) 0.97 m/s [facility] EF 56.68 % [facility] E/A ratio 1.22 [facility] LV Systolic Volume Index 26.30 mL/m2 [facility] LV Diastolic Volume Index 76.70 mL/m2 [facility] LA Volume Index 30.05 mL/m2 [facility] Narrative Performed At The left ventricle chamber size is normal. [facility] Left Ventricular ejection fraction is 55 - 60%. Performing Organization Address City/State/Zipcode Phone Number [facility] [address] [place] [address] Cv stress procedure (06/30/2017 9:50 AM) Resting HR 63 [facility] MUSE Resting BP [facility] MUSE Peak MET Achieved 7.0 [facility] MUSE Protocol Name [facility] MUSE Time in Exercise Phase 00:05:16 [facility] MUSE Max Systolic BP 160 [facility] MUSE Max Diastolic BP 82 [facility] MUSE Max Heart Rate 88 [facility] MUSE Max Predicted Heart Rate 161 [facility] MUSE Target HR Formula (220 - Age)*100% [facility] MUSE Test Indication [facility] MUSE Arrhy During Ex [facility] MUSE ECG Interp Before EX [facility] MUSE ECG Interp During Ex [facility] MUSE Ex Summary Comment [facility] MUSE Overall HR Response to [facility] MUSE Exercise Overall BP Response To [facility] MUSE Exercise Reason for Termination [facility] MUSE Stress Test Impression Waveform interpreted in report [facility] MUSE associated with image study. No interpretation is provided as part of this Stress ECG report.--Electronically Signed By Sera Bailey MD ([id number]), video news editor Diana Menjivar ([id number]) on 06/30/2017 10:12:35 AM Performing Organization Address City/State/Zipcode Phone Number [facility] NICOLE [address] [place] [address] Echocardiogram complete w contrast and 3D if needed (06/28/2017 2:15 PM) Velocity Ratio (V1/V2) 0.89 m/s [facility] IVS,d 1.21 (A) 0.6 - 1.2 cm [facility] EF 38.79 % [facility] LA volume 82.0 cm3 [facility] LVPWD,d 1.14 cm [facility] AoV Mean PG 3.99 mmHg [facility] AV LVOT peak gradient 5.80 mmHg [facility] MV valve area p 1/2 method 3.03 cm2 [facility] E/A ratio 0.89 [facility] E wave decelartion time 189.39 msec [facility] LVOT Diam,S 1.98 cm [facility] LVOT area 3.08 cm2 [facility] LVOT Vmax 1.20 m/s [facility] LVOT VTI 0.24 m [facility] AoV Peak PG 7.24 mmHg [facility] MV Peak E Arthur 0.88 m/s [facility] MV stenosis pressure 1/2 time 72.63 ms [facility] MV Peak A Arthur 0.99 m/s [facility] LV Vol,s A2C 71.47 mL [facility] LV Vol,d A2C 138.31 mL [facility] AoV Area, Vmax 2.76 cm2 [facility] AoV Area, VTI 2.71 cm2 [facility] AoV Vmax 1.35 m/s [facility] LA Area d A4C 75 cm2 [facility] LV,d 5.65 cm [facility] LV,s 4.59 cm [facility] LV Vol,d A4C 143.10 ml [facility] LV Vol,s A4C 78.40 ml [facility] TR Vpeak 2.64 mm/s [facility] MV E A ratio 0.89 mmHg [facility] RA pressure 5.00 mmHg [facility] TR pk grad 24.31 mmHg [facility] MR peak grad 56.00 mmHg [facility] RVSP 32.94 mmHg [facility] LV SYS VOL 91.21 ml [facility] LV MCKINNEY VOL 149.01 ml [facility] LA diam s 4.00 cm [facility] LV SV Teich 2D 57.80 ml [facility] LVOT SI 37.24 ml/m2 [facility] AoV Cusp sep 2.03 [facility] Aortic Root 3.40 cm [facility] AoV Vmn 0.96 [facility] IVS s 2D 1.41 [facility] LA Ao Ratio Mmode 1.16 [facility] AK End Mckinney Grad 8.27 [facility] AK End Diat Arthur 1.44 [facility] D E excurs 1.70 [facility] E f slope 0.09 [facility] E prime lat 0.12 [facility] E scot sept 0.10 [facility] PV acc T slope 3.60 [facility] IVC diam 18.27 cm [facility] PV AT 131.49 msec [facility] AoV VTI 0.27 m [facility] LV EF,A2C 48.33 % [facility] LV EF,A4C 45.21 % [facility] LV EF,BP 44.51 % [facility] Farhat Richards,d A2C 8.50 cm [facility] Farhat Richards,d A4C 8.54 cm [facility] Farhat Richards,s A2C 7.79 cm [facility] Farhat Richards,s A4C 7.12 cm [facility] LV SV,A2C 66.84 % [facility] LV SV,A4C 64.69 % [facility] LV Vol,d BP 140.54 ml [facility] LV Vol,s BP 77.99 nl [facility] MR Vmax 3.74 m/s [facility] LVOT Vmn 0.81 [facility] Pt Size 185.42 [facility] Pt Wt 73.03 [facility] LVOT mean grad 2.90 mmHg [facility] LVPW s PLAX 1.20 cm [facility] MV Decel slope 4.65 m/s2 [facility] Narrative Performed At The left ventricle chamber size is normal. [facility] Left ventricular systolic function moderately impaired. Left Ventricular ejection fraction is 35 - 40%. Left atrium size is upper limits of normal. Right atrium size upper limits of normal. No pericardial effusion Unable to assess diastolic filling. Performing Organization Address City/State/Zipcode Phone Number [facility] [address] [place] [address] T4, free (06/28/2017 1:16 PM) T4, free 1.82 (H) 0.90 - 1.70 ng/dL [facility] DEPARTMENT OF PATHOLOGY AND GENOMIC MEDICINE Specimen Plasma specimen Performing Organization Address [facility] Phone Number [facility] DEPARTMENT OF PATHOLOGY AND [address] [place] [address] [place] [address] [facility] MEDICINE CRITICAL CARE (06/28/2017 1:01 PM) Narrative Performed At Keshav Gamboa MD 06/28/2017 10:26 PM Critical Care Performed by: KESHAV GAMBOA Authorized by: KESHAV GAMBOA Critical care provider statement: Critical care time (minutes):35 Critical care time was exclusive of:Separately billable procedures and treating other patients Critical care was necessary to treat or prevent imminent or life-threatening deterioration of the following conditions: Afib RVR 160's requiring immediate intervention. Critical care was time spent personally by me on the following activities:Development of treatment plan with patient or surrogate, discussions with primary provider, evaluation of patient's response to treatment, examination of patient, obtaining history from patient or surrogate, re-evaluation of patient's condition, pulse oximetry, ordering and review of radiographic studies, ordering and review of laboratory studies and ordering and performing treatments and interventions Paolo 'yes' if you are taking over critical care for this patient from another provider.: no Anti Xa, unfractionated (06/18/2017 5:19 AM)Only the most recent of7 resultswithin the time period is included. Anti Xa, unfractionated 0.39Comment: 0.30 - 0.70 U/mL [facility] DEPARTMENT OF Therapeutic Range: PATHOLOGY AND GENOMIC 0.30 - 0.70 U/mL MEDICINE Specimen Blood Performing Organization Address [facility] Phone Number [facility] DEPARTMENT OF PATHOLOGY AND [id number] [place] [address] [place] [address] [facility] CBC hemogram (06/18/2017 5:19 AM) WBC 11.36 (H) 4.50 - 11.00 k/uL [facility] DEPARTMENT OF PATHOLOGY AND GENOMIC MEDICINE RBC 3.49 (L) 4.40 - 6.00 m/uL [facility] DEPARTMENT OF PATHOLOGY AND GENOMIC MEDICINE HGB 11.6 (L) 14.0 - 18.0 g/dL [facility] DEPARTMENT OF PATHOLOGY AND GENOMIC MEDICINE HCT 36.2 (L) 41.0 - 51.0 % [facility] DEPARTMENT OF PATHOLOGY AND GENOMIC MEDICINE MCV 103.7 (H) 82.0 - 100.0 fL [facility] DEPARTMENT OF PATHOLOGY AND GENOMIC MEDICINE MCH 33.2 27.0 - 34.0 pg [facility] DEPARTMENT OF PATHOLOGY AND GENOMIC MEDICINE MCHC 32.0 31.0 - 37.0 g/dL [facility] DEPARTMENT OF PATHOLOGY AND GENOMIC MEDICINE RDW - SD 54.7 37.0 - 55.0 fL [facility] DEPARTMENT OF PATHOLOGY AND GENOMIC MEDICINE MPV 9.4 8.8 - 13.2 fL [facility] DEPARTMENT OF PATHOLOGY AND GENOMIC MEDICINE Platelet count 347 150 - 400 k/uL [facility] DEPARTMENT OF PATHOLOGY AND GENOMIC MEDICINE Nucleated RBC 0.00 /100 WBC [facility] DEPARTMENT OF PATHOLOGY AND GENOMIC MEDICINE Specimen Blood Performing Organization Address City/State/Zipcode Phone Number [facility] DEPARTMENT OF PATHOLOGY AND [address] [place] [address] [facility] Echocardiogram complete w contrast and 3D if needed (06/16/2017 4:15 PM) Velocity Ratio (V1/V2) 0.84 m/s [facility] IVS,d 0.91 0.6 - 1.2 cm [facility] Ao root annulus 3.40 cm [facility] EF 56.18 % [facility] LA volume 44.0 cm3 [facility] LVPWD,d 0.77 cm [facility] AoV Mean PG 5.91 mmHg [facility] AV LVOT peak gradient 8.59 mmHg [facility] MV valve area p 1/2 method 2.53 cm2 [facility] E/A ratio 0.93 [facility] E wave decelartion time 299.38 msec [facility] LVOT Diam,S 2.48 cm [facility] LVOT area 4.83 cm2 [facility] LVOT Vmax 1.47 m/s [facility] LVOT VTI 0.29 m [facility] AoV Peak PG 12.39 mmHg [facility] MV Peak E Arthur 0.85 m/s [facility] MV stenosis pressure 1/2 time 86.82 ms [facility] MV Peak A Arthur 0.91 m/s [facility] LV Vol,s A2C 50.41 mL [facility] LV Systolic Volume Index 25.08 mL/m2 [facility] LV Vol,d A2C 142.40 mL [facility] LV Diastolic Volume Index 70.85 mL/m2 [facility] LA Volume Index 21.89 mL/m2 [facility] BSA 2.01 m2 [facility] AoV Area, Vmax 4.02 cm2 [facility] AoV Area, VTI 4.27 cm2 [facility] AoV Vmax 1.76 m/s [facility] BSA Dumont 1.99 m2 [facility] BSA Haycock 1.99 m2 [facility] IVS/LVPW,2D 1.18 [facility] LA Area d A4C 79 cm2 [facility] LV,d 5.43 cm [facility] LV,s 3.82 cm [facility] LV Vol,d A4C 96.80 ml [facility] LV Vol,s A4C 45.83 ml [facility] RVSP (TR) 50.15 mmHg [facility] TR Vpeak 3.38 mm/s [facility] BMI 22.43 kg/m2 [facility] MV E A ratio 0.93 mmHg [facility] RA pressure 5.00 mmHg [facility] TR pk grad 40.15 mmHg [facility] AoV area i VTI BSA [place] 2.13 cm2/m2 [facility] MR peak grad 55.47 mmHg [facility] RVSP 45.00 mmHg [facility] LV SYS VOL 62.82 ml [facility] LV MCKINNEY VOL 143.35 ml [facility] LA diam s 4.50 cm [facility] LA Vol MOD A4C 79.21 ml [facility] LV SI Teich 2D 40.10 ml/m2 [facility] LV SV Teich 2D 80.53 ml [facility] LV Vol s Teich PSAX 62.82 ml [facility] LVOT SI 70.22 ml/m2 [facility] AoV Cusp sep 1.95 [facility] Aortic Root 3.40 cm [facility] AoV Vmn 1.13 [facility] IVS s 2D 1.03 [facility] LA Ao Ratio Mmode 1.33 [facility] LV FS Cube 2D 29.66 [facility] LV FS Teich 2D 29.66 [facility] AK End Mckinney Grad 1.31 [facility] AK End Diat Arthur 6.35 [facility] D E excurs 1.40 [facility] E f slope 0.08 [facility] E prime lat 0.13 [facility] E scot sept 0.11 [facility] PV acc T slope 7.60 [facility] PV AT 86.51 msec [facility] AoV VTI 0.33 m [facility] LV EF,2D 65.19 % [facility] LV EF,A2C 64.60 % [facility] LV EF,A4C 52.65 % [facility] LV EF,BP 56.89 % [facility] Farhat Richards,d A2C 7.92 cm [facility] Farhat Richards,d A4C 7.11 cm [facility] Farhat Richards,s A2C 6.39 cm [facility] Farhat Richards,s A4C 5.20 cm [facility] LV SV,A2C 91.99 % [facility] LV SV,A4C 50.96 % [facility] LV SV,BP 70.02 % [facility] LV Vol,d BP 123.07 ml [facility] LV Vol,s BP 53.05 nl [facility] LV SI MOD BP BSA Jorge 34.87 ml/m2 [facility] LV Vol Index s bpmod BSA [place] 61.29 ml/m2 [facility] PV Vmn 26.42 m/s [facility] MR Vmax 3.72 m/s [facility] MV AE ratio 1.07 [facility] LVOT Vmn 0.98 [facility] Pt Size 185.42 [facility] Pt Wt 77.11 [facility] Aov area Vmn 4.18 cm2 [facility] LVOT mean grad 4.46 mmHg [facility] AoV area I VMN bsa 2.08 cm2/m2 [facility] IVS pct thck PLAX 12.46 % [facility] LV SI Cube 2D 52.08 ml/m2 [facility] LV SV Cube 2D 104.58 ml [facility] LV vol d cube 2D 160.42 ml [facility] LV vol s cube 2D 55.84 ml [facility] LVPW pct thck PLAX 61.01 % [facility] LVPW s PLAX 1.24 cm [facility] MV Decel slope 2.84 m/s2 [facility] Narrative Performed At The left ventricle chamber size is normal. [facility] Left Ventricular ejection fraction is 55 - 60%. No pericardial effusion Spectral Doppler shows impaired relaxation pattern of left ventricular diastolic filling. Performing Organization Address City/State/Zipcode Phone Number [facility] [address] [place] [address] PV duplex venous lower extremity (06/16/2017 3:50 PM) Narrative Performed At The right lower extremity was positive for deep vein thrombosis in the [facility] femoral vein and popliteal vein. The left lower extremity was positive for deep vein thrombosis in the popliteal vein. Performing Organization Address City/State/Zipcode Phone Number [facility] [address] [place] [address] CT Angiogram Pe Chest (06/15/2017 6:28 PM) Narrative Performed At EXAMINATION: RADIANT CT ANGIOGRAM PE CHEST CLINICAL HISTORY: chest pain TECHNIQUE: CT angiographic images of the chest were obtained during intravenous administration of iodinated contrast. Computerized reformatted images and 3-D MIP images were also obtained and archived (CT pulmonary embolus protocol). Radiation dose reduction technique was utilized. COMPARISON: 05/08/2016 IMPRESSION: 1.Examination is positive for the presence of small subsegmental pulmonary emboli in the left lower lobe and right upper lobe. 2.Status post sternotomy. AICD in good position. 3.No aortic aneurysm or dissection in the chest. 4.No mediastinal or hilar masses. 5.No pleural effusions. 6.There are mild emphysematous changes present in the lung apices. There is some minimal scarring at the left lung base. No pulmonary parenchymal mass or infiltrate is seen. 7.Limited scans through the upper abdomen demonstrate an IVC filter. Above the filter, there are some irregular filling defects seen in the intrahepatic IVC consistent with the presence of thrombus. Discussion and readback with Dr. NATHALY HAWK at 06/15/2017 6:59 PM. [facility]-[id number] Procedure Note Interface, Radiology Results Incoming - 06/15/2017 7:03 PM CDT EXAMINATION: CT ANGIOGRAM PE CHEST CLINICAL HISTORY: chest pain TECHNIQUE: CT angiographic images of the chest were obtained during intravenous administration of iodinated contrast. Computerized reformatted images and 3-D MIP images were also obtained and archived (CT pulmonary embolus protocol). Radiation dose reduction technique was utilized. COMPARISON: 05/08/2016 IMPRESSION: 1. Examination is positive for the presence of small subsegmental pulmonary emboli in the left lower lobe and right upper lobe. 2. Status post sternotomy. AICD in good position. 3. No aortic aneurysm or dissection in the chest. 4. No mediastinal or hilar masses. 5. No pleural effusions. 6. There are mild emphysematous changes present in the lung apices. There is some minimal scarring at the left lung base. No pulmonary parenchymal mass or infiltrate is seen. 7. Limited scans through the upper abdomen demonstrate an IVC filter. Above the filter, there are some irregular filling defects seen in the intrahepatic IVC consistent with the presence of thrombus. Discussion and readback with Dr. NATHALY HAWK at 06/15/2017 6:59 PM. [facility]-[id number] Performing Organization Address City/[facility]/Zipcode Phone Number [facility] [address] [place] [address] D-dimer (06/15/2017 2:56 PM) D-dimer 0.87 (H) 0.00 - 0.40 ug/mL FEU [facility] DEPARTMENT OF Comment: PATHOLOGY AND GENOMIC Units are ug/ml Fibrinogen Equivalent Unit. MEDICINE When combined with low clinical probability, D-dimer results of less than 0.5 ug/ml FEU have a good negativepredictive value in excluding PE or DVT. For D-dimer results greater than 0.5ug/ml FEU further testing is indicated if PE or DVT is suspectedclinically. Elevated D-dimer results have been reported in DVT, PE, and DIC cases and may indicate the presence of a clot. D-dimer results may be elevated due to old age, , inflammatory diseases, trauma, post-operative states, sepsis, and malignancies. Specimen Blood Performing Organization Address [facility] Phone Number [facility] DEPARTMENT OF PATHOLOGY AND [address] [place] [address] GENOMIC MEDICINE CRITICAL CARE (06/15/2017 2:50 PM) Narrative Performed At Nathaly Hwak DO 06/15/20179:24 PM Critical Care Performed by: NATHALY HAWK Authorized by: NATHALY HAWK Critical care provider statement: Critical care time (minutes):60 Critical care end time:06/15/2017 7:14 PM Critical care time was exclusive of:Separately billable procedures and treating other patients Critical care was necessary to treat or prevent imminent or life-threatening deterioration of the following conditions:Cardiac failure Critical care was time spent personally by me on the following activities:Ordering and performing treatments and interventions, ordering and review of laboratory studies, ordering and review of radiographic studies, pulse oximetry, re-evaluation of patient's condition, review of old charts, transcutaneous pacing, development of treatment plan with patient or surrogate, discussions with consultants, discussions with primary provider, evaluation of patient's response to treatment, examination of patient and obtaining history from patient or surrogate Paolo 'yes' if you are taking over critical care for this patient from another provider.: no after 11/08/2016 Insurance Payer Benefit Plan / Group Subscriber ID Type Phone Address [facility] xxxxxxxxx O Home: [phone] [address]
--- OUTSIDE RECORDS SUMMARY | 2017-11-09 00:33 | XMS REPORT ---
:1960 [facility] [address] [place] [address] Care Team Providers Name Role Phone ER, PHYSICIAN Primary Care Provider Unavailable QUINN MORAN Unavailable Unavailable DIMITRIOS CEBALLOS Unavailable Unavailable Payers Payer Name Policy Type Policy Number Effective Date Expiration Date Problems This patient has no known problems. Allergies, Adverse Reactions, Alerts Allergy Name Allergy Status Severity Reaction(s) Onset Inactive Treating Comments Type Date Date Clinician codeine DA Active U 07 00:00: 00 nitroglycerin DA Active SV 9 00:00: 00 ibuprofen DA Active U 0 9 00:00: 00 tramadol DA Active SV 0 9 00:00: 00 nitroglycerin DA Active SV 0 827 00:00: 00 ibuprofen DA Active U 0 827 00:00: 00 tramadol DA Active SV 0 827 00:00: 00 Medications This patient has no known medications. Results Test Description Test Time Test Comments Text Results Atomic Results Result Comments CT, BRAIN, 2017-10-11 Reason for exam:->CHEST FINAL REPORT PATIENT ID: WITHOUT CONTRAST 02:50:00 PAINReason for [id number] CLINICAL exam:->FALLWhat is the HISTORY: Trauma and pain patient's sedation COMPARISON: None requirement?->No Multiple axial images of Sedation the brain were performed without IV contrast. This exam was performed according to our departmental dose-optimization program, which includes automated exposure control, adjustment of the mA and/or kV according to patient size and/or use of the iterative reconstruction technique. Intracranial hemorrhage: None. Brain parenchyma: There is encephalomalacia in the right frontal and temporal lobes. Ventricles, sulci and basal cisterns: Normal for age. Extra-axial spaces: Normal. Midline shift: None. Visualized vasculature: Normal. Cranium: No significant findings. Skullbase: No significant findings. Paranasal sinuses: No significant findings. IMPRESSION: No definite acute intracranial abnormality. There is no mass lesion, intracranial hemorrhage or CT evidence of acute stroke. Right frontotemporal encephalomalacia. Please correlate with history. Please note that CT is insensitive in the detection of acute ischemia. Signed: Adarsh Palacios MDReport Verified Date/Time: 10/11/2017 02:50:02 Reading Location: [address] Reading Room TINE KINASE (CK), TOTAL AND MB 2017-10-11 02:46:00 Test Item Value Reference Range Comments CREATINE KINASE TOTAL (BEAKER) (test cwuj=613) 119 U/L 29-200 CREATINE KINASE-MB (BEAKER) (test gduy=995) 3.1 ng/mL 0.0-6.6 CREATINE KINASE-MB INDEX (BEAKER) (test fzrf=951) 2.6 % CK-MB Reference Range:<6.7 Normal6.7-10.0 Borderline>10.0 AbnormalTROPONIN [id number] 02:46:00 Test Item Value Reference Range Comments TROPONIN I (BEAKER) (test jhea=785) 0.01 ng/mL 0.00-0.03 Troponin I (TnI) levels must be interpreted in the context of the presenting symptoms and the clinical findings. Elevated TnI levels indicate myocardial damage, but are not specific for ischemic heart disease. Elevated TnI levels are seen in patients with other cardiac conditions (including myocarditis and congestive heart failure), and slight TnI elevations occur in patients with other conditions, including sepsis, renal failure, acidosis, acute neurological disease, and persistent tachyarrhythmia.CBC W/PLT COUNT & AUTO [id number] 02:43:00 Test Item Value Reference Range Comments WHITE BLOOD CELL COUNT (BEAKER) (test wxxs=606) 18.9 K/ L 3.5-10.5 RED BLOOD CELL COUNT (BEAKER) (test bdkl=876) 3.20 M/ L 4.63-6.08 HEMOGLOBIN (BEAKER) (test sqkr=917) 10.6 GM/DL 13.7-17.5 HEMATOCRIT (BEAKER) (test tyek=829) 33.0 % 40.1-51.0 MEAN CORPUSCULAR VOLUME (BEAKER) (test lnqz=460) 103.1 fL 79.0-92.2 MEAN CORPUSCULAR HEMOGLOBIN (BEAKER) (test 33.1 pg 25.7-32.2 uuhg=455) MEAN CORPUSCULAR HEMOGLOBIN CONC (BEAKER) (test 32.1 GM/DL 32.3-36.5 bpoc=502) RED CELL DISTRIBUTION WIDTH (BEAKER) (test 14.8 % 11.6-14.4 gplk=344) PLATELET COUNT (BEAKER) (test tdwl=006) 412 K/CU MM 150-450 MEAN PLATELET VOLUME (BEAKER) (test zqcw=035) 8.7 fL 9.4-12.4 NUCLEATED RED BLOOD CELLS (BEAKER) (test 0 /100 WBC 0-0 sqji=555) NEUTROPHILS RELATIVE PERCENT (BEAKER) (test 56 % rrsv=904) LYMPHOCYTES RELATIVE PERCENT (BEAKER) (test 34 % tdjt=245) MONOCYTES RELATIVE PERCENT (BEAKER) (test 7 % rnva=071) EOSINOPHILS RELATIVE PERCENT (BEAKER) (test 2 % lgjv=826) BASOPHILS RELATIVE PERCENT (BEAKER) (test 1 % ahpj=643) NEUTROPHILS ABSOLUTE COUNT (BEAKER) (test 10.62 K/ L 1.78-5.38 yyir=867) LYMPHOCYTES ABSOLUTE COUNT (BEAKER) (test 6.37 K/ L 1.32-3.57 otxf=164) MONOCYTES ABSOLUTE COUNT (BEAKER) (test 1.24 K/ L 0.30-0.82 apsl=965) EOSINOPHILS ABSOLUTE COUNT (BEAKER) (test 0.46 K/ L 0.04-0.54 qycf=145) BASOPHILS ABSOLUTE COUNT (BEAKER) (test 0.13 K/ L 0.01-0.08 rflo=161) IMMATURE GRANULOCYTES-RELATIVE PERCENT (BEAKER) 1 % 0-1 (test lxvw=0808) BASIC METABOLIC [id number] 02:40:00 Test Item Value Reference Range Comments SODIUM (BEAKER) (test 141 meq/L 136-145 ynsv=916) POTASSIUM (BEAKER) (test 4.2 meq/L 3.5-5.1 tsjl=799) CHLORIDE (BEAKER) (test 111 meq/L 98-107 rnro=845) CO2 (BEAKER) (test 21 meq/L 22-29 qari=072) BLOOD UREA NITROGEN 28 mg/dL 7-21 (BEAKER) (test vjka=646) CREATININE (BEAKER) (test 1.15 mg/dL 0.57-1.25 wfyu=975) GLUCOSE RANDOM (BEAKER) 99 mg/dL 70-105 (test xiwl=866) CALCIUM (BEAKER) (test 9.1 mg/dL 8.4-10.2 mgqu=906) EGFR (BEAKER) (test 65 mL/min/1.73 sq m ESTIMATED GFR IS NOT pvet=4790) ACCURATE CREATININE CLEARANCE IN PREDICTING GLOMERULAR FILTRATION RATE. ESTIMATED GFR IS NOT APPLICABLE FOR DIALYSIS PATIENTS. [id number] 02:37:00 Test Item Value Reference Range Comments ETHANOL (BEAKER) (test qugk=892) < mg/dL <=10 RAD, CHEST, 1 VIEW, NON [id number] 02:20:00Reason for exam:->CHEST PAINReason for exam:->FALLShould this be performed at the bedside?-> YesFINAL REPORT INDICATION: CHEST PAINFALL COMPARISON: September 21, 2017 TECHNIQUE: Single frontal view of the chest. FINDINGS: Lungs and pleura: Clear lungs. No effusion.Heart and mediastinum: Normal heart size. Persistent central vascular congestion. Stable mediastinal surgical changes.Osseous structures: No acute abnormality.Other: None. IMPRESSION: No acute intrathoracic abnormality. Signed: JR Jaimes Robert MDReport Verified Date/Time: 10/11/2017 02:20:28 Reading Location: [address] Body Reading Room RAD, CHEST, 1 VIEW, NON [id number] 23:14:00Reason for exam:-> CHEST PAINFINAL REPORT RAD, CHEST, 1 VIEW, NON DEPT INDICATION: CHEST PAIN COMPARISON: Chest x-ray in 2016 TECHNIQUE: Single frontal view of the chest. IMPRESSION:Stable ICD leads.No cardiomegaly.Enlarged pulmonary arteries.No pneumothorax.No overt consolidative or congestive change.No acute osseous abnormality. Signed: Adenike Muñoz MDReport Verified Date/Time: 09/21/2017 23:14:36 Reading Location: [address] Reading Room 11: 14 [id number] 22:59:00 Test Item Value Reference Range Comments PROTIME (BEAKER) (test tldt=307) 16.9 seconds 11.7-14.7 INR (BEAKER) (test tvcs=329) 1.4 <=5.9 PARTIAL THROMBOPLASTIN TIME (BEAKER) (test 26.9 seconds 22.5-36.0 hdxo=688) RECOMMENDED COUMADIN/WARFARIN INR THERAPY RANGESSTANDARD DOSE: 2.0 - 3.0 Includes: PROPHYLAXIS forvenous thrombosis, systemic embolization; TREATMENT for venous thrombosis and/or pulmonary embolus.HIGH RISK: Target INR is 2.5-3.5 for patients with mechanical heart valves.CREATINE KINASE (CK), TOTAL AND [id number] 22:58:00 Test Item Value Reference Range Comments CREATINE KINASE TOTAL (BEAKER) (test nwcj=989) 212 U/L 29-200 CREATINE KINASE-MB (BEAKER) (test yyqa=897) 5.0 ng/mL 0.0-6.6 CREATINE KINASE-MB INDEX (BEAKER) (test jxot=197) 2.4 % CK-MB Reference Range:<6.7 Normal6.7-10.0 Borderline>10.0 AbnormalTROPONIN [id number] 22:58:00 Test Item Value Reference Range Comments TROPONIN I (BEAKER) (test gmxo=189) 0.02 ng/mL 0.00-0.03 Troponin I (TnI) levels must be interpreted in the context of the presenting symptoms and the clinical findings. Elevated TnI levels indicate myocardial damage, but are not specific for ischemic heart disease. Elevated TnI levels are seen in patients with other cardiac conditions (including myocarditis and congestive heart failure), and slight TnI elevations occur in patients with other conditions, including sepsis, renal failure, acidosis, acute neurological disease, and persistent tachyarrhythmia.[id number] 22:50:00 Test Item Value Reference Range Comments MAGNESIUM (BEAKER) (test rcei=414) 2.3 mg/dL 1.6-2.6 BASIC METABOLIC [id number] 22:50:00 Test Item Value Reference Range Comments SODIUM (BEAKER) (test 140 meq/L 136-145 qisd=031) POTASSIUM (BEAKER) (test 4.5 meq/L 3.5-5.1 sgge=138) CHLORIDE (BEAKER) (test 110 meq/L 98-107 xgvl=571) CO2 (BEAKER) (test 17 meq/L 22-29 icug=314) BLOOD UREA NITROGEN 27 mg/dL 7-21 (BEAKER) (test dusb=868) CREATININE (BEAKER) (test 1.69 mg/dL 0.57-1.25 nwnz=664) GLUCOSE RANDOM (BEAKER) 79 mg/dL 70-105 (test lgri=577) CALCIUM (BEAKER) (test 9.7 mg/dL 8.4-10.2 troh=720) EGFR (BEAKER) (test 42 mL/min/1.73 sq m ESTIMATED GFR IS NOT ygjq=5244) ACCURATE CREATININE CLEARANCE IN PREDICTING GLOMERULAR FILTRATION RATE. ESTIMATED GFR IS NOT APPLICABLE FOR DIALYSIS PATIENTS. CBC W/PLT COUNT & AUTO [id number] 22:32:00 Test Item Value Reference Range Comments WHITE BLOOD CELL COUNT (BEAKER) (test jgnb=164) 16.4 K/ L 3.5-10.5 RED BLOOD CELL COUNT (BEAKER) (test dfdc=221) 3.77 M/ L 4.63-6.08 HEMOGLOBIN (BEAKER) (test yifk=223) 12.6 GM/DL 13.7-17.5 HEMATOCRIT (BEAKER) (test qfds=222) 37.8 % 40.1-51.0 MEAN CORPUSCULAR VOLUME (BEAKER) (test vxfb=809) 100.3 fL 79.0-92.2 MEAN CORPUSCULAR HEMOGLOBIN (BEAKER) (test 33.4 pg 25.7-32.2 kjzh=533) MEAN CORPUSCULAR HEMOGLOBIN CONC (BEAKER) (test 33.3 GM/DL 32.3-36.5 whpv=832) RED CELL DISTRIBUTION WIDTH (BEAKER) (test 14.5 % 11.6-14.4 ldgw=565) PLATELET COUNT (BEAKER) (test unod=080) 376 K/CU MM 150-450 MEAN PLATELET VOLUME (BEAKER) (test shqz=326) 8.5 fL 9.4-12.4 NUCLEATED RED BLOOD CELLS (BEAKER) (test 0 /100 WBC 0-0 yffa=304) NEUTROPHILS RELATIVE PERCENT (BEAKER) (test 54 % ximn=552) LYMPHOCYTES RELATIVE PERCENT (BEAKER) (test 34 % mdwr=173) MONOCYTES RELATIVE PERCENT (BEAKER) (test 10 % tumz=476) EOSINOPHILS RELATIVE PERCENT (BEAKER) (test 1 % mzhq=726) BASOPHILS RELATIVE PERCENT (BEAKER) (test 1 % omyr=736) NEUTROPHILS ABSOLUTE COUNT (BEAKER) (test 8.86 K/ L 1.78-5.38 aqpk=564) LYMPHOCYTES ABSOLUTE COUNT (BEAKER) (test 5.50 K/ L 1.32-3.57 ydsv=420) MONOCYTES ABSOLUTE COUNT (BEAKER) (test 1.63 K/ L 0.30-0.82 xocq=827) EOSINOPHILS ABSOLUTE COUNT (BEAKER) (test 0.21 K/ L 0.04-0.54 zaqv=083) BASOPHILS ABSOLUTE COUNT (BEAKER) (test 0.15 K/ L 0.01-0.08 uheg=868) IMMATURE GRANULOCYTES-RELATIVE PERCENT (BEAKER) 0 % 0-1 (test hrxn=9979) RPR, [id number] 13:10:00 Test Item Value Reference Range Comments RPR (test code=RPR) Non-Reactive Non-Reactive Thyroid Stimulating Hormone (TSH)2016-10-17 03:28:00 Test Item Value Reference Range Comments TSH (test code=TSH) 0.92 mIU/mL 0.270-4.200 Lipid [id number] 03:21:00 Test Item Value Reference Range Comments Cholesterol (test 117 mg/dL 0-200 code=CHOL) Triglycerides (test 131 mg/dL 9-200 code=TRIG) HDL (test code=HDL) 24 mg/dL 40-60 Chol/HDL (test 4.9 Ratio 0.0-5.0 code=CHOLPHDL) LDL, Calculated (test 67 0-130 (NOTE)RISK OF HEART code=LDLC) DISEASEPublished by Pakistani Heart AssociationAnalyte Optimal Boderline Increased RiskCHOL <200 200-239 >240TRIG <150 150-199 >200HDL Male: >60 <40HDL Female: >60 <50LDL <100 130-159 >160LDL NEAR OPTIMAL IS 100-129 VLDL (test code=VLDL) 26 mg/dL 5-40 LDL/HDL (test code=LDLPHDL) 3 Urinalysis [id number] 23:23:00 Test Item Value Reference Range Comments Color (test code=COLOR) Yellow Yellow,Straw,Pl yellow Clarity (test code=CLAR) Clear Clear Specific [place] (test code=SPGR) 1.014 1.001-1.035 pH (test code=PH) 6.0 5.0-9.0 Ketone (test code=KET) Negative mg/dL Negative Glucose (test code=GLUCUR) Negative mg/dL Negative Protein (test code=PROT) Negative mg/dL Negative Bilirubin (test code=BILI) Negative mg/dL Negative Occult Blood (test code=UDOB) Negative Negative Urobilinogen (test code=UROB) 0.2 mg/dL 0.2-1.0 Nitrite (test code=NIT) Negative Negative Leuk Esterase (test code=LEUK) Small Negative Micros Exam (test code=MEXAM) Indicated Epithelial Cells (test code=EPI) 3-5 /LPF 0-30 WBC, Urine (test code=UWBC) 6-10 /HPF 0-5 RBC, Urine (test code=URBC) 0-3 /HPF 0-5 Bacteria (test code=BACT) Few /HPF Troponin [id number] 23:16:00 Test Item Value Reference Range Comments Troponin T (test code=BRITTANY) <0.010 ng/mL 0.000-0.090 [id number] 23:14:00 Test Item Value Reference Range Comments Amphetamine (test code=AMPH) Negative Negative For diagnostic purposes only, positive results should always be assessedin conjunctionwith the patient's medical history,clinical examination and otherfindings.To fulfill legal requirements, a more specific alternate chemical methodmust be used inorder to obtain a Confirmed analytical result. GC/MS is the preferred confirmatory method. Barbiturates (test code=JUAN DANIEL) Negative Negative Benzodiazepine (test Negative Negative code=KAYLEN) Cocaine (test code=COCA) Negative Negative Methadone (test code=MTHD) Negative Negative Opiates (test code=OPIA) Negative Negative PCP (test code=PCP) Negative Negative Propoxyphene (test Negative Negative code=PROPOX) THC (test code=THC) Negative Negative Alcohol, Urine (test <0.01 g/dL 0.00-0.01 code=ETOHU) Comprehensive Metabolic [id number] 23:14:00 Test Item Value Reference Range Comments Sodium (test code=NA) 138 mmol/L 135-145 Potassium (test code=K) 4.4 mmol/L 3.5-5.1 Chloride (test code=CL) 104 mmol/L 98-105 Carbon Dioxide (test 22 mmol/L 22-29 code=CO2) Glucose (test code=GLU) 97 mg/dL 70-115 Blood Urea Nitrogen (test 26 mg/dL 6-20 code=BUN) Creatinine (test 1.6 mg/dL 0.7-1.2 code=CREAT) Calcium (test code=CA) 10.0 mg/dL 8.3-10.5 Prot Total (test code=TP) 7.9 g/dL 6.4-8.3 Albumin (test code=ALB) 4.6 g/dL 3.5-5.2 A/G Ratio (test 1.4 Ratio code=AGRATIO) Globulin (test code=GLOB) 3.3 2.9-3.1 Bili Total (test 0.3 mg/dL 0.1-0.9 code=TBIL) Alk Phos (test 116 U/L 40-129 code=APHOS) AST (test code=AST) 16 U/L 1-40 ALT (test code=ALT) 12 U/L 1-41 BUN/Creatinine Ratio 16.3 (test code=BCRATIO) Anion Gap (test 12 mmol/L 7-16 code=AGAP) Estimated GFR (test 47 mL/min/1.73m2 eGFR (estimated Glomerular code=GFR) Filtration Rate) is an estimated value,calculated from the patient's serum creatinine using the MDRD equation.It is NOT the patient's actual GFR. The eGFR provides a more clinicallyuseful measure of kidney disease than serum creatinine alone.This calculation takes sex and race into account, if the informationis provided. If the race is not provided, and the patient isAfrican-Pakistani, multiply by 1.212. If sex is not provided, and thepatient is female, multiply by 0.742. Results for patients <18 years ofage have not been validated by the MDRD study and should be interpretedwith caution.eGFR Result Interpretation:eGFR > or=60 is in the Normal RangeeGFR < 60 may mean kidney diseaseeGFR < 15 may mean kidney failureRanges recommended by the National Kidney Foundation,http://nkdep.nih .gov CBC with [id number] 23:01:00 Test Item Value Reference Range Comments WBC (test code=WBC) 14.6 K/cumm 4.4-10.5 RBC (test code=RBC) 4.11 M/cumm 4.10-5.70 Hemoglobin (test code=HGB) 13.4 gm/dL 13.4-17.4 Hematocrit (test code=HCT) 42.2 % 38.7-52.0 MCV (test code=MCV) 102.6 fL 80-100 MCH (test code=MCH) 32.7 pg 27.0-32.5 MCHC (test code=MCHC) 31.9 g/dL 32.0-37.5 RDW (test code=RDW) 15.3 % 11.5-14.5 Platelet Count (test code=PLTCT) 537 K/cumm 140-440 MPV (test code=MPV) 7.9 fL Diff Method (test code=DIFFM) Auto Neutrophil (test code=NEUT) 56.6 % 36-70 Lymphocyte (test code=LYMPH) 30.7 % 12-44 Monocyte (test code=MONO) 5.9 % 0-11 Eosinophil (test code=EOS) 5.8 % 0-7 Basophil (test code=BASO) 1.0 % 0-2 Neutro Abs (test code=ANEUT) 8.3 K/cumm 1.6-7.4 Lymph Abs (test code=ALYMPH) 4.5 K/cumm 0.5-4.6 [place] Abs (test code=AMONO) 0.9 K/cumm 0.0-1.2 Eos Abs (test code=AEOS) 0.85 K/cumm 0.00-0.74 Baso Abs (test code=ABASO) 0.2 K/cumm 0.00-0.21 Macrocytosis (test code=MACRO) Slight XR CHEST 1 [id number] 22:48:57LOCATION: [id number]: 56-year-old male with chest pain.COMMENT: After-hours service at 10:49 p.m.Theexamination was obtained at the bedside at 10:18 p.m. and iscompared to an older study of August.The lungs are clear, and well-aerated. The cardiac silhouette, yenni, andmediastinum are unremarkable. The skeleton and soft tissues areunremarkable. Again noted are median sternotomy wires.Since the prior study a left-sided ICD device is been placed.IMPRESSION:Unremarkable portable examination of the chest.
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
[2017-11-09] MEDS ORDERED: ASPIRIN 81 MG CHEWABLE TABLET ONE (01:04)
[2017-11-09] MEDS ORDERED: ONDANSETRON 4 MG/2 ML VIAL ONE (01:04)
[2017-11-09] MEDS ORDERED: MORPHINE 4 MG/ML SYR ONE ×2 (01:04→04:56)
[2017-11-09] MEDS ORDERED: ENOXAPARIN 80 MG/0.8 ML SQ ONE (01:17)
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
[2017-11-09 01:27] LABS: Absolute Lymphocytes (CBC) 4.9 K/uL (0.7-4.9); Absolute Monocytes 1.3 K/uL (0.1-1.3); Absolute Neutrophil 7.4 K/uL (1.8-8.0); Basophils % 1.3 % (0-1.3); Eosinophils % 2.4 % (0-4.4); Hematocrit 32.2 % (39.6-49.0); Lymphocytes % 34.5 % (15.3-44.8); MCV 99.7 fL (80-100); MPV 7.1 fL (7.6-11.3); Monocytes % 9.4 % (3.3-12.3); RBC Red Blood Cell Count 3.22 M/uL (4.33-5.43)
[2017-11-09 01:28] LABS: Protime INR 1.49
[2017-11-09 02:04] LABS: ALT/SGPT 30 U/L (12-78); AST/SGOT 34 U/L (15-37); Albumin 3.8 g/dL (3.4-5.0); Alkaline Phosphatase 102 U/L (45-117); BUN Blood Urea Nitrogen 34 mg/dL (7-18); Bicarbonate 24 mmol/L (21-32); Bilirubin Direct 0.1 mg/dL (0-0.2); Bilirubin Total 0.4 mg/dL (0.2-1.0); Glucose Level 94 mg/dL (74-106); Magnesium 2.4 mg/dL (1.8-2.4); NT PRO-BNP 744 pg/mL (<125); Potassium 4.3 mmol/L (3.5-5.1); Protein, Total 7.3 g/dL (6.4-8.2); Sodium Level 141 mmol/L (136-145); Troponin (Emerg Dept Use Only) < 0.02 ng/mL (0.0-0.045)
[2017-11-09 03:03] VITALS: BMI 23.3
[2017-11-09] MEDS ORDERED: ACETAMINOPHEN 500 MG TAB PO PRN (03:15)
[2017-11-09] MEDS ORDERED: ALPRAZOLAM 0.25 MG TABLET PO PRN (03:15)
[2017-11-09] MEDS: METOPROLOL TARTRATE 5 MG/5 ML INJ IV SCH ×2 (03:15→03:20)
[2017-11-09] MEDS ORDERED: HYDROCODONE/APAP 10/325 TAB PO ONE (03:35)
[2017-11-09] MEDS ORDERED: METOPROLOL TARTRATE 5 MG/5 ML INJ IV ONE (03:50)
[2017-11-09] MEDS ORDERED: HYDROCODONE/APAP 10/325 TAB ONE (03:50)
[2017-11-09] MEDS: MORPHINE 4 MG/ML SYR IV PRN ×2 (04:59→09:08)
[2017-11-09 05:46] VITALS: O2SAT 95
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
[2017-11-09 06:18] LABS: Absolute Lymphocytes (CBC) 6.2 K/uL (0.7-4.9); Absolute Monocytes 1.3 K/uL (0.1-1.3); Absolute Neutrophil 5.6 K/uL (1.8-8.0); Basophils % 1.8 % (0-1.3); Eosinophils % 3.3 % (0-4.4); Lymphocytes % 45.3 % (15.3-44.8); MCH 33.5 pg (27.0-35.0); MCV 98.6 fL (80-100); MPV 6.9 fL (7.6-11.3); Monocytes % 9.1 % (3.3-12.3); RBC Red Blood Cell Count 3.04 M/uL (4.33-5.43)
[2017-11-09 06:42] LABS: Albumin 3.4 g/dL (3.4-5.0); Bilirubin Total 0.3 mg/dL (0.2-1.0); Magnesium 2.4 mg/dL (1.8-2.4); Phosphorus 3.9 mg/dL (2.5-4.9); Potassium 4.4 mmol/L (3.5-5.1); Protein, Total 6.4 g/dL (6.4-8.2); Thyroid Stimulating Hormone 2.04 uIU/mL (0.360-3.740)
[2017-11-09 06:44] LABS: Anisocytosis 1+; Blood Morphology Comment NOTED (NOT SEEN); Platelet Estimate ADEQ
[2017-11-09] MEDS ORDERED: ZOLPIDEM TARTRATE 10 MG TABLET PO PRN (07:58)
[2017-11-09] MEDS ORDERED: HYDROCODONE/APAP 10/325 TAB PO PRN (07:58)
--- NOTE | 2017-11-09 08:50 | RAD REPORT ---
EXAM DESCRIPTION: RAD - Chest Single View - 11/09/2017 1:05 am CLINICAL HISTORY: CHEST PAIN Chest pain. COMPARISON: No comparisons FINDINGS: Portable technique limits examination quality. The lungs are grossly clear. The heart is normal in size. Sternotomy wires are noted. Multi lead pace r device is in place. IMPRESSION: No acute intrathoracic process suspected.
[2017-11-09] MEDS ORDERED: SERTRALINE HCL 50 MG TAB PO SCH (09:00)
[2017-11-09] MEDS ORDERED: ARIPiprazole 5 MG TAB PO SCH (09:00)
[2017-11-09] MEDS ORDERED: METOPROLOL TAR 50 MG TAB PO SCH (09:00)
[2017-11-09] MEDS ORDERED: METOPROLOL XL 25 MG TAB PO SCH (09:00)
[2017-11-09] MEDS ORDERED: RIVAROXABAN 20 MG TABLET PO SCH (09:00)
[2017-11-09] MEDS ORDERED: AMIODARONE HCL 200 MG TAB PO SCH (09:00)
[2017-11-09] MEDS ORDERED: ATORVASTATIN 40 MG TAB PO SCH (09:00)
[2017-11-09] MEDS ORDERED: BUSPIRONE HCL 5 MG TABLET PO SCH (09:00)
--- NOTE | 2017-11-09 11:02 | EKG ---
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
--- NOTE | 2017-11-09 11:35 | ECHO ---
HEIGHT: 6 ft 1 in WEIGHT: 177 lb 0.146 oz DATE OF STUDY: 11/09/[address]: Alannah Metz MD 2-DIMENSIONAL: YES M.MODE: YES DOPPLER: YES COLOR FLOW: YES TDS: NO PORTABLE: NO DEFINITY: NO BUBBLE STUDY: NO DIAGNOSIS: CHEST PAIN, RULE OUT ACS CARDIAC HISTORY: CATHERIZATION: SURGERY: PROSTHETIC VALVE: PACEMAKER: MEASUREMENTS (cm) DIASTOLIC (NORMALS) SYSTOLIC (NORMALS) IVSd 0.9 (0.6-1.2) LA Diam 5.3 (1.9-4.0) LVEF 55-60% LVIDd 5.5 (3.5-5.7) LVIDs 4.2 (2.0-3.5) %FS % LVPWd 0.9 (0.6-1.2) Ao Diam 3.3 (2.0-3.7) 2 DIMENSIONAL ASSESSMENT: RIGHT ATRIUM: NORMAL LEFT ATRIUM: DILATED RIGHT VENTRICLE: NORMAL LEFT VENTRICLE: NORMAL TRICUSPID VALVE: NORMAL MITRAL VALVE: NORMAL PULMONIC VALVE: NORMAL AORTIC VALVE: NORMAL PERICARDIAL EFFUSION: NONE AORTIC ROOT: NORMAL LEFT VENTRICULAR WALL MOTION: DECREASED LEFT VENTRICULAR COMPLIANCE. DOPPLER/COLOR FLOW: NORMAL COMMENTS: DECREASED LEFT VENTRICULAR COMPLIANCE. NORMAL LEFT VENTRICULAR EJECTION FRACTION. TECHNICALLY DIFFICULT STUDY. TECHNOLOGIST: Carmen ST
[2017-11-09 17:53] VITALS: BP 107/55; TEMP 97.4
--- NOTE | 2017-11-10 | CON ---
Date of Consultation: 11/09/2017 Reason For Consultation: Chest pain. History Of Present Illness: Mr. Waters is a 57-year-old white male, seems to have been all over the place as far as cardiac care. He has physician at [facility]. Six months ago, he had a DVT at [facility], for which he has been taking Xarelto. This has not been rechecked since, and he has not had any followup in that regard. Apparently, within the last year, he had a stress test that was negati ve. Within the last 2 years to 3 years, he had a catheterization that he was told there was no coron devika artery disease. He comes in with sharp stabbing chest pain. No nausea, vomiting, diaphoresis, P ND, orthopnea, pedal edema, palpitations, or syncope. Negative chest x-ray, CPK-MB, and troponin. Past Medical History: Negative. Allergies: INCLUDE CODEINE, IBUPROFEN, AND NITROGLYCERIN. Review of Systems: Negative. Social History: Negative. Family History: Noncontributory. Medications: At home are as listed by Dr. Metz. Physical Examination: Vital Signs: Stable. He is afebrile. HEENT: Negative. Neck: Supple. No bruit. Chest: Clear to auscultation and percussion. Cardiac: Revealed a regular rhythm and rate without any murmurs, gallops, or rubs. Abdomen: Benign. Extremities: Revealed no clubbing, cyanosis, or edema. Diagnostic Data: All within normal limits. Impression And Plan: chest pain, most likely pleuritic. Normal electrocardiogram, CPK-MB , and troponin. The patient has a history of deep venous thrombosis, which was 6 months ago. A veno us Doppler may be reasonable to do to see if he still requires his Xarelto since it has been 6 months . Apparently, he had a pulmonary embolus at that time according to him. We had no records available . I suggest maybe getting a venous Doppler and getting a stress test done as an outpatient would be reasonable. The patient does not have to stay in the hospital with that regard. He is already ruled out for a myocardial infarction and is pain free. The case was discussed with Dr. Tam. GISSELL/LINDSEY Voice ID: [id number] Report ID: [id number]
[2017-11-10] MEDS ORDERED: LEVOTHYROXINE SOD 0.112 MG TAB PO SCH (06:00)
== END 2017-11-09 21:45 | disposition home or self-care (01) ==
LOC: ER 00:29 → ERHOLD 02:31 → 2ND 08:19
PROVIDERS: ADMIT Hospitalist; ATTEND Hospitalist
DX: R07.9 Chest pain, unspecified (principal); I10 Essential (primary) hypertension; Z95.0 Presence of cardiac pacemaker; Z86.711 Personal history of pulmonary embolism; F17.210 Nicotine dependence, cigarettes, uncomplicated; E11.9 Type 2 diabetes mellitus without complications; G89.4 Chronic pain syndrome
CPT/HCPCS: 36415; 71045; 80048; 80053; 80076; 83735; 83880; 84100; 84439; 84443; 84484; 85025; 85610; 93005; 93306; 96372; 96374; 96375; 99285; G0378; J1650; J2405

== ENCOUNTER 2017-12-20 19:47 | Emergency (ER) | payer OTHER ==
--- OUTSIDE RECORDS SUMMARY | 2017-12-20 19:50 | XMS REPORT | Clinical Summary ---
:1960 Author Organization [facility] Address [address] [place] [address] Care Team Providers Name Role Phone Asked, [...] Noted Date Chest pain 09/05/2017 Pulmonary embolus (HCC) 06/15/2017 Bradycardia 09/18/2016 Atrial fibrillation with RVR (HCC) 09/18/2016 Bipolar 2 disorder (HCC) 08/17/2016 PE (pulmonary thromboembolism) (HCC) 08/17/2016 Acute renal failure (HCC) 08/16/2016 Atrial fibrillation with rapid ventricular response (HCC) 05/10/2016 Dysrhythmia, cardiac 04/30/2016 Chest pressure 09/20/2015 Encounters Date Type Specialty Care Team Description 11/18/2017 Emergency Emergency Kenn, Nathaly Atypical chest pain Medicine DO Alannah (Primary Dx) 11/15/2017 Emergency Emergency Keshav Gamboa MD Chest pain, unspecified type (Primary Dx); Medicine Dehydration 11/12/2017 - Emergency Emergency Rolando Sparks Chest pain, unspecified type (Primary Dx); 11/13/2017 Medicine MD Osmin Malingering 11/11/2017 Emergency Emergency Ginny Caro Chest pain in adult ( Primary Dx); Medicine MD Linda Homicidal ideation 10/22/2017 Emergency Emergency Kenn, Nathaly Chronic bilateral [...] back pain without sciatica, unspecified chronicity DO Abarm 09/29/2017 Emergency Emergency Gemignani, Chest pain, Medicine Abram Epps MD unspecified type (Primary Dx) 09/23/2017 Emergency Emergency Gemignani, Chest pain, Medicine Abram Epps MD unspecified type (Primary Dx) 09/22/2017 Emergency Emergency Vaishnavigari, Chest pain, Medicine Clinton Bah MD unspecified type (Primary Dx) 09/22/2017 Emergency Emergency Kenneth House MD Chest pain in adult ( Primary Dx); Medicine Elevated CK 09/05/2017 - Emergency General Surgery Marcantel, Chest pain, 09/06/2017 Gurpreet Hale MD unspecified type [place], (Primary Dx) DO Jarret 06/30/2017 Patient Outreach Quality Dionne Walden RN 06/30/2017 Documentation General Internal Aris Chowdhury Medicine MD Tracey 06/28/2017 - Hospital Encounter General Internal Keshav Gamboa MD Atrial fibrillation with RVR (Primary Dx); 06/30/2017 Medicine Sade, Chest pain, unspecified type; MD Edin Dehydration; Other acute pulmonary embolism without acute cor pulmonale; Tachycardia; Anticoagulated by anticoagulation treatment 06/18/2017 Patient Outreach Quality Francia Ruiz RN 06/15/2017 - Hospital Encounter General Surgery Nathaly Hawk Other acute pulmonary 06/18/2017 DO Alannah embolism without acute Smith, Pinto N, cor pulmonale (Primary MD Dx) after 12/19/2016 Immunizations Name Dates Previously Given Next Due Tdap 08/16/2016 Social History Tobacco Use Types Packs/Day Years Used Date Current Every Day Smoker Cigars 1 Smokeless Tobacco: Never Used Tobacco Cessation: Counseling Given: Yes Alcohol Use Drinks/Week oz/Week Comments No Sex Assigned at Date Recorded Not on file Last Filed Vital Signs Vital Sign Reading Time Taken Blood Pressure 130/58 11/18/2017 2:06 AM CDT Pulse 60 11/18/2017 2:06 AM CDT Temperature 36.9 C (98.4 F) 11/18/2017 2:06 AM CDT Respiratory Rate 18 11/18/2017 2:06 AM CDT Oxygen Saturation 98% 11/18/2017 2:06 AM CDT Inhaled Oxygen Concentration - - Weight 80.3 kg (177 lb) 11/15/2017 7:58 PM CDT Height 185.4 cm (6' 1") 11/18/2017 2:06 AM CDT Body Mass Index 23.35 11/15/2017 7:58 PM CDT Plan of Treatment Health Maintenance Due Date Last Done Comments COLON CANCER SCREENING 2008 SHINGRIX VACCINE (#1) 2008 INFLUENZA VACCINE 09/29/2017 11/29/2009 Procedures Procedure Name Priority Date/Time Associated Comments Diagnosis URINALYSIS SCREEN AND STAT 11/15/2017 9:21 Results for this MICROSCOPY, WITH REFLEX PM CDT procedure are in TO CULTURE the results section. URINE CULTURE STAT 11/15/2017 9:21 Results for this PM CDT procedure are in the results section. XR CHEST 1 VW PORTABLE STAT 11/15/2017 8:30 Results for this PM CDT procedure are in the results section. ESTIMATED GFR STAT 11/15/2017 8:19 Results for this PM CDT procedure are in the results section. B NATRIURETIC PEPTIDE STAT 11/15/2017 8:19 Results for this PM CDT procedure are in the results section. TROPONIN STAT 11/15/2017 8:19 Results for this PM CDT procedure are in the results section. CREATINE KINASE, TOTAL STAT 11/15/2017 8:19 Results for this (CPK) PM CDT procedure are in the results section. MAGNESIUM LEVEL STAT 11/15/2017 8:19 Results for this PM CDT procedure are in the results section. PHOSPHORUS LEVEL STAT 11/15/2017 8:19 Results for this PM CDT procedure are in the results section. COMPREHENSIVE METABOLIC STAT 11/15/2017 8:19 Results for this PANEL PM CDT procedure are in the results section. PARTIAL THROMBOPLASTIN STAT 11/15/2017 8:19 Results for this TIME (PTT) PM CDT procedure are in the results section. PROTHROMBIN TIME WITH STAT 11/15/2017 8:19 Results for this INR PM CDT procedure are in the results section. HC COMPLETE BLD COUNT STAT 11/15/2017 8:19 Results for this W/AUTO DIFF PM CDT procedure are in the results section. ECG ED PRELIMINARY Routine 11/15/2017 8:03 Results for this INTERPRETATION PM CDT procedure are in the results section. ECG 12-LEAD STAT 11/15/2017 7:53 Results for this PM CDT procedure are in the results section. TROPONIN Timed 11/13/2017 3:17 Results for this AM CDT procedure are in the results section. NM LUNG VENTILATION STAT 11/13/2017 1:44 Results for this PERFUSION AM CDT procedure are in the results section. B NATRIURETIC PEPTIDE Routine 11/12/2017 11:51 Results for this PM CDT procedure are in the results section. HC COMPLETE BLD COUNT Routine 11/12/2017 11:51 Results for this W/AUTO DIFF PM CDT procedure are in the results section. ESTIMATED GFR STAT 11/12/2017 10:58 Results for this PM CDT procedure are in the results section. CREATINE KINASE, TOTAL STAT 11/12/2017 10:58 Results for this (CPK) PM CDT procedure are in the results section. TROPONIN STAT 11/12/2017 10:58 Results for this PM CDT procedure are in the results section. PARTIAL THROMBOPLASTIN STAT 11/12/2017 10:58 Results for this TIME (PTT) PM CDT procedure are in the results section. PROTHROMBIN TIME WITH STAT 11/12/2017 10:58 Results for this INR PM CDT procedure are in the results section. BASIC METABOLIC PANEL STAT 11/12/2017 10:58 Results for this PM CDT procedure are in the results section. ECG 12-LEAD STAT 11/12/2017 10:47 Results for this PM CDT procedure are in the results section. XR CHEST 1 VW PORTABLE STAT 11/12/2017 10:40 Results for this PM CDT procedure are in the results section. ECG 12-LEAD STAT 11/12/2017 10:21 Results for this PM CDT procedure are in the results section. ECG ED PRELIMINARY Routine 11/12/2017 10:14 Results for this INTERPRETATION PM CDT procedure are in the results section. SMEAR REVIEW STAT 11/11/2017 9:45 Results for this AM CDT procedure are in the results section. ESTIMATED GFR STAT 11/11/2017 9:45 Results for this AM CDT procedure are in the results section. ESTIMATED GFR STAT 11/11/2017 9:45 Results for this AM CDT procedure are in the results section. URINALYSIS SCREEN AND STAT 11/11/2017 9:45 Results for this MICROSCOPY, WITH REFLEX AM CDT procedure are in TO CULTURE the results section. URINE DRUGS OF ABUSE STAT 11/11/2017 9:45 Results for this SCREEN AM CDT procedure are in the results section. SALICYLATE LEVEL STAT 11/11/2017 9:45 Results for this AM CDT procedure are in the results section. ACETAMINOPHEN LEVEL STAT 11/11/2017 9:45 Results for this AM CDT procedure are in the results section. ALCOHOL LEVEL, BLOOD STAT 11/11/2017 9:45 Results for this AM CDT procedure are in the results section. T4, FREE STAT 11/11/2017 9:45 Results for this AM CDT procedure are in the results section. THYROID STIMULATING STAT 11/11/2017 9:45 Results for this HORMONE AM CDT procedure are in the results section. COMPREHENSIVE METABOLIC STAT 11/11/2017 9:45 Results for this PANEL AM CDT procedure are in the results section. B NATRIURETIC PEPTIDE STAT 11/11/2017 9:45 Results for this AM CDT procedure are in the results section. TROPONIN STAT 11/11/2017 9:45 Results for this AM CDT procedure are in the results section. COMPREHENSIVE METABOLIC STAT 11/11/2017 9:45 Results for this PANEL AM CDT procedure are in the results section. HC COMPLETE BLD COUNT STAT 11/11/2017 9:45 Results for this W/AUTO DIFF AM CDT procedure are in the results section. URINE CULTURE STAT 11/11/2017 9:40 Results for this AM CDT procedure are in the results section. ECG 12-LEAD STAT 11/11/2017 8:58 Results for this AM CDT procedure are in the results section. ECG ED PRELIMINARY Routine 10/22/2017 2:34 Results [...] CDT procedure are in the results section. ZZESTIMATED GFR STAT 10/17/2017 7:15 Results for this [...] CDT procedure are in the results section. ZZESTIMATED GFR STAT 10/12/2017 8:03 Results for this [...] CDT procedure are in the results section. ZZESTIMATED GFR STAT 09/23/2017 2:17 Results for this [...] in the results section. ED REFERRAL TO [facility] Routine 09/22/2017 9:44 SCIENTOLOGIST PHYSICIAN AM CDT ORGANIZATION ECG ED PRELIMINARY Routine 09/22/2017 8:58 Results for this INTERPRETATION AM CDT procedure are in the results section. SMEAR REVIEW STAT 09/22/2017 8:26 Results for this AM CDT procedure are in the results section. CREATINE KINASE, TOTAL STAT 09/22/2017 8:26 Results for this (CPK) AM CDT procedure are in the results section. ZZESTIMATED GFR STAT 09/22/2017 8:26 Results for this [...] CDT procedure are in the results section. ZZESTIMATED GFR STAT 09/22/2017 1:20 Results for this [...] CDT procedure are in the results section. ZZESTIMATED GFR Routine 09/06/2017 5:15 Results for this [...] are in SPECTRAL COLOR DOPPLER the results (15581) section. URINE DRUGS OF ABUSE STAT 09/05/2017 [...] CDT procedure are in the results section. ZZESTIMATED GFR STAT 09/05/2017 6:57 Results for this [...] CDT procedure are in the results section. ZZESTIMATED GFR Routine 06/29/2017 4:55 Results for this [...] are in SPECTRAL COLOR DOPPLER the results (54781) section. XR CHEST 1 VW PORTABLE STAT 06/28/2017 1:20 Results for this PM CDT procedure are in the results section. T4, FREE STAT 06/28/2017 1:16 Results for this PM CDT procedure are in the results section. THYROID STIMULATING STAT 06/28/2017 1:16 Results for this HORMONE PM CDT procedure are in the results section. ZZESTIMATED GFR STAT 06/28/2017 1:06 Results for this [...] CDT procedure are in the results section. MS CRITICAL CARE, E/M Routine 06/28/2017 1:01 Results [...] are in SPECTRAL COLOR DOPPLER the results (08052) section. US DUPLEX VENOUS LOWER Routine 06/16/2017 [...] CDT procedure are in the results section. MS CRITICAL CARE, E/M Routine 06/15/2017 2:50 Results for this 30-74 MINUTES PM CDT procedure are in the results section. ZZESTIMATED GFR STAT 06/15/2017 2:50 Results for this [...] procedure are in the results section. after 12/19/2016 Results Urinalysis screen and microscopy, with reflex to culture (11/15/2017 9:21 PM) Only the most recent of5 resultswithin the time period is included. Specimen site Clean catch [facility] DEPARTMENT OF PATHOLOGY AND GENOMIC MEDICINE Color, UA Yellow [facility] DEPARTMENT OF PATHOLOGY AND GENOMIC MEDICINE Appearance, UA Clear [facility] DEPARTMENT OF PATHOLOGY AND GENOMIC MEDICINE Specific gravity, UA 1.016 1.001 - 1.035 [facility] DEPARTMENT OF PATHOLOGY AND GENOMIC MEDICINE pH, UA 6.0 5.0 - 8.5 [facility] DEPARTMENT OF PATHOLOGY AND GENOMIC MEDICINE Protein, UA Negative Negative [facility] DEPARTMENT OF PATHOLOGY AND GENOMIC MEDICINE Glucose, UA Negative Negative [facility] DEPARTMENT OF PATHOLOGY AND GENOMIC MEDICINE Ketones, UA Negative Negative [facility] DEPARTMENT OF PATHOLOGY AND GENOMIC MEDICINE Bilirubin, UA Negative Negative [facility] DEPARTMENT OF PATHOLOGY AND GENOMIC MEDICINE Blood, UA Negative Negative [facility] DEPARTMENT OF PATHOLOGY AND GENOMIC MEDICINE Nitrite, UA Negative Negative [facility] DEPARTMENT OF PATHOLOGY AND GENOMIC MEDICINE Urobilinogen, UA 2.0 (A) <2.0 [facility] DEPARTMENT OF PATHOLOGY AND GENOMIC MEDICINE Leukocyte esterase, UA Negative Negative [facility] DEPARTMENT OF PATHOLOGY AND GENOMIC MEDICINE Epithelial cells, UA Few /HPF [facility] DEPARTMENT OF PATHOLOGY AND GENOMIC MEDICINE Round epithelial cells, UA Few 0 - 1 /HPF [facility] DEPARTMENT OF PATHOLOGY AND GENOMIC MEDICINE WBC, UA 0-5 0 - 1 /HPF [facility] DEPARTMENT OF PATHOLOGY AND GENOMIC MEDICINE RBC, UA 0-5 0 - 5 /HPF [facility] DEPARTMENT OF PATHOLOGY AND GENOMIC MEDICINE Bacteria, UA None seen None seen [facility] DEPARTMENT OF PATHOLOGY AND GENOMIC MEDICINE Yeast, UA None seen [facility] DEPARTMENT OF PATHOLOGY AND GENOMIC MEDICINE Yeast with pseudohyphae, UA None seen [facility] DEPARTMENT OF PATHOLOGY AND GENOMIC MEDICINE Specimen Urine Performing Organization Address City/State/Zipcode Phone Number [facility] DEPARTMENT OF PATHOLOGY AND [address] [place] [address] GENOMIC MEDICINE Urine culture (11/15/2017 9:21 PM)Only the most recent of5 resultswithin the time period is included. Urine culture SEE COMMENTComment: Bacteriuria [facility] DEPARTMENT OF PATHOLOGY screen negative. AND GENOMIC MEDICINE Specimen Urine Performing Organization Address City/[facility]/Zipcode Phone Number [facility] DEPARTMENT OF PATHOLOGY AND [address] [place] [address] GENOMIC MEDICINE XR Chest 1 Vw Portable (11/15/2017 8:30 PM)Only the most recent of7 resultswithin the time period is included. Narrative Performed At EXAMINATION:XR CHEST 1 VW PORTABLE RADIANT CLINICAL HISTORY:chest pain TECHNIQUE:XR CHEST 1 VW PORTABLE COMPARISON:Chest radiograph dated 11/12/2017 FINDINGS: Lines/tubes:There is a left chest wall biventricular pacemaker device with intact leads terminating in the right atrium, right ventricle, and coronary sinus. Multiple EKG leads project over the patient. Heart and mediastinum:The cardiac silhouette is within normal limits for size. There is atherosclerotic calcification of the aorta. Lungs:There is bibasilar subsegmental atelectasis/scarring.There is no focal consolidation.There is no evidence of pulmonary edema. Pleura:There is no pleural effusion. There is no pneumothorax. Bones and Soft Tissues:Patient is status post median sternotomy with intact wires. There are mild degenerative changes of the visualized skeleton. There is no acute or suspicious osseous abnormality. IMPRESSION: No acute cardiopulmonary abnormality. [facility]-[id number] Procedure Note Hm Interface, Radiology Results Incoming - 11/15/2017 8:49 PM CDT EXAMINATION: XR CHEST 1 VW PORTABLE CLINICAL HISTORY: chest pain TECHNIQUE: XR CHEST 1 VW PORTABLE COMPARISON: Chest radiograph dated 11/12/2017 FINDINGS: Lines/tubes: There is a left chest wall biventricular pacemaker device with intact leads terminating in the right atrium, right ventricle, and coronary sinus. Multiple EKG leads project over the patient. Heart and mediastinum: The cardiac silhouette is within normal limits for size. There is atherosclerotic calcification of the aorta. Lungs: There is bibasilar subsegmental atelectasis/scarring. There is no focal consolidation. There is no evidence of pulmonary edema. Pleura: There is no pleural effusion. There is no pneumothorax. Bones and Soft Tissues: Patient is status post median sternotomy with intact wires. There are mild degenerative changes of the visualized skeleton. There is no acute or suspicious osseous abnormality. IMPRESSION: No acute cardiopulmonary abnormality. [facility]-[id number] Performing Organization Address City/[facility]/Zipcode Phone Number [facility] [address] [place] [address] Estimated GFR (11/15/2017 8:19 PM)Only the most recent of4 resultswithin the time period is included. Estimated GFR 60 mL/min/1.73 m2 [facility] DEPARTMENT OF Comment: PATHOLOGY AND GENOMIC CatergoryUnitsInterpretation MEDICINE G1 >=90 Normal or high G2 60-89Mildly decreased [id number] to moderately decreased [id number] to severely decreased G4 15-29Severely decreased G5 <15Kidney failure The eGFR was calculated using the Chronic Kidney Disease Epidemiology Collaboration (CKD-EPI) equation. Interpretation is based on recommendations of the National Kidney Foundation-Kidney Disease Outcomes Quality Initiative (NKF-KDOQI) published in 2014. Specimen Plasma specimen Performing Organization Address [facility] Phone Number [facility] DEPARTMENT [facility] AND [address] [place] [address] [place] [address] [facility] Troponin (11/15/2017 8:19 PM)Only the most recent of19 resultswithin the time period is included. Troponin <0.300 0.000 - 0.300 ng/mL [facility] DEPARTMENT OF Comment: PATHOLOGY AND GENOMIC 0.30 - 1.49 ng/mlMay indicate increased risk of acute MEDICINE coronary syndrome. >=1.5 ng/mlConsistent with acute myocardial infarction. The diagnostic value of a single normal or non-diagnostic result is questionable.Serial samples at 2-6 hour intervals are required to rule out acute myocardial injury. Specimen Plasma specimen Performing Organization Address [facility] Phone Number [facility] DEPARTMENT PATHOLOGY AND [address] [place] [address] [place] [address] [facility] Partial thromboplastin time, activated (11/15/2017 8:19 PM)Only the most recent of6 resultswithin the time period is included. PTT 36.1 (H) 23.0 - 36.0 sec [facility] DEPARTMENT OF Comment: PATHOLOGY AND [facility] PTT therapeutic range for unfractionated heparin is MEDICINE 61.0-112.0 seconds which corresponds to Anti-Xa 0.3-0.7 U/ml. Specimen Blood Performing Organization Address [facility] Phone Number [facility] AND [address] [place] [address] [facility] Prothrombin time with INR (11/15/2017 8:19 PM)Only the most recent of6 resultswithin the time period is included. Prothrombin time 18.4 (H) 12.0 - 15.0 sec [facility] DEPARTMENT OF PATHOLOGY AND GENOMIC MEDICINE INR 1.5 [facility] DEPARTMENT OF Comment: PATHOLOGY AND GENOMIC The International Normalized Ratio (INR) is a therapeutic MEDICINE monitoring tool for patients who are stable on oral anticoagulant therapy. An INR of 2.0-3.0 is suggested for deep vein thrombosis/pulmonary embolism. Specimen Blood Performing Organization Address City/State/Zipcode Phone Number [facility] PATHOLOGY AND [address] [place] [address] [facility] CBC with platelet and differential (11/15/2017 8:19 PM)Only the most recent of14 resultswithin the time period is included. WBC 12.80 (H) 4.50 - 11.00 k/uL [facility] DEPARTMENT OF PATHOLOGY AND GENOMIC MEDICINE RBC 3.17 (L) 4.40 - 6.00 m/uL [facility] DEPARTMENT OF PATHOLOGY AND GENOMIC MEDICINE HGB 10.5 (L) 14.0 - 18.0 g/dL [facility] DEPARTMENT OF PATHOLOGY AND GENOMIC MEDICINE HCT 31.9 (L) 41.0 - 51.0 % [facility] DEPARTMENT OF PATHOLOGY AND GENOMIC MEDICINE MCV 100.6 (H) 82.0 - 100.0 fL [facility] DEPARTMENT OF PATHOLOGY AND GENOMIC MEDICINE MCH 33.1 27.0 - 34.0 pg [facility] DEPARTMENT OF PATHOLOGY AND GENOMIC MEDICINE MCHC 32.9 31.0 - 37.0 g/dL [facility] DEPARTMENT OF PATHOLOGY AND GENOMIC MEDICINE RDW - SD 56.4 (H) 37.0 - 55.0 fL [facility] DEPARTMENT OF PATHOLOGY AND GENOMIC MEDICINE MPV 8.8 8.8 - 13.2 fL [facility] DEPARTMENT OF PATHOLOGY AND GENOMIC MEDICINE Platelet count 413 (H) 150 - 400 k/uL [facility] DEPARTMENT OF PATHOLOGY AND GENOMIC MEDICINE Nucleated RBC 0.00 /100 WBC [facility] DEPARTMENT OF PATHOLOGY AND GENOMIC MEDICINE Neutrophils 50.1 39.0 - 69.0 % [facility] DEPARTMENT OF PATHOLOGY AND GENOMIC MEDICINE Lymphocytes 36.3 25.0 - 45.0 % [facility] DEPARTMENT OF PATHOLOGY AND GENOMIC MEDICINE Monocytes 9.1 0.0 - 10.0 % [facility] DEPARTMENT OF PATHOLOGY AND GENOMIC MEDICINE Eosinophils 3.4 0.0 - 5.0 % [facility] DEPARTMENT OF PATHOLOGY AND GENOMIC MEDICINE Basophils 0.7 0.0 - 1.0 % [facility] DEPARTMENT OF PATHOLOGY AND GENOMIC MEDICINE Specimen Blood Performing Organization Address [facility] Phone Number [facility] DEPARTMENT OF PATHOLOGY AND [address] [place] [address] Phosphorus level (11/15/2017 8:19 PM)Only the most recent of3 resultswithin the time period is included. Phosphorus 3.2 2.4 - 4.5 mg/dL [facility] DEPARTMENT OF PATHOLOGY AND GENOMIC MEDICINE Specimen Plasma specimen Performing Organization Address [facility] Number [facility] DEPARTMENT OF PATHOLOGY AND [address] [place] [address] B natriuretic peptide (11/15/2017 8:19 PM)Only the most recent of9 resultswithin the time period is included. BNP 100 0 - 100 pg/mL [facility] DEPARTMENT OF PATHOLOGY AND GENOMIC MEDICINE Specimen Blood Performing Organization Address [facility] Number [facility] DEPARTMENT OF PATHOLOGY AND [address] [place] [address] Magnesium level (11/15/2017 8:19 PM)Only the most recent of3 resultswithin the time period is included. Magnesium 2.2 1.6 - 2.6 mg/dL [facility] DEPARTMENT OF PATHOLOGY AND GENOMIC MEDICINE Specimen Plasma specimen Performing Organization Address [facility] Phone Number [facility] DEPARTMENT PATHOLOGY AND [address] [place] [address] [address] Creatine kinase, total (CPK) (11/15/2017 8:19 PM)Only the most recent of7 resultswithin the time period is included. Creatine kinase 163 39 - 308 U/L [facility] DEPARTMENT OF PATHOLOGY AND GENOMIC MEDICINE Specimen Plasma specimen Performing Organization Address [facility] Phone Number [facility] DEPARTMENT OF PATHOLOGY AND [address] [place] [address] Comprehensive metabolic panel (11/15/2017 8:19 PM)Only the most recent of9 resultswithin the time period is included. Sodium 144 135 - 148 mEq/L [facility] DEPARTMENT OF PATHOLOGY AND GENOMIC MEDICINE Potassium 4.6 3.5 - 5.0 mEq/L [facility] DEPARTMENT OF PATHOLOGY AND GENOMIC MEDICINE Chloride 110 98 - 112 mEq/L [facility] DEPARTMENT OF PATHOLOGY AND GENOMIC MEDICINE CO2 23 (L) 24 - 31 mEq/L [facility] DEPARTMENT OF PATHOLOGY AND GENOMIC MEDICINE Anion gap 11@ANIO 7 - 15 mEq/L [facility] DEPARTMENT OF PATHOLOGY AND GENOMIC MEDICINE BUN 27 (H) 6 - 20 mg/dL [facility] DEPARTMENT OF PATHOLOGY AND GENOMIC MEDICINE Creatinine 1.30 (H) 0.70 - 1.20 mg/dL [facility] DEPARTMENT OF PATHOLOGY AND GENOMIC MEDICINE Glucose 128 (H) 65 - 99 mg/dL [facility] DEPARTMENT OF PATHOLOGY AND GENOMIC MEDICINE Calcium 9.7 8.3 - 10.2 mg/dL [facility] DEPARTMENT OF PATHOLOGY AND GENOMIC MEDICINE Protein 7.0 6.3 - 8.3 g/dL [facility] DEPARTMENT OF Comment: PATHOLOGY AND GENOMIC 4.6-7.0 g/dL MEDICINE 1 week 4.4-7.6 g/dL 7 months-1year5.1-7.3 g/dL 1-2 years5.6-7.5 g/dL >3 years6.0-8.0 g/dL 18-150 6.3-8.3 g/dL Albumin 4.1 3.5 - 5.0 g/dL [facility] DEPARTMENT OF PATHOLOGY AND GENOMIC MEDICINE A/G ratio 1.4 0.7 - 3.8 [facility] DEPARTMENT OF PATHOLOGY AND GENOMIC MEDICINE Alkaline phosphatase 103 40 - 129 U/L [facility] DEPARTMENT OF PATHOLOGY AND GENOMIC MEDICINE AST 30 10 - 50 U/L [facility] DEPARTMENT OF PATHOLOGY AND GENOMIC MEDICINE ALT 26 5 - 50 U/L [facility] DEPARTMENT OF PATHOLOGY AND GENOMIC MEDICINE Total bilirubin 0.2 0.0 - 1.2 mg/dL [facility] DEPARTMENT OF PATHOLOGY AND GENOMIC MEDICINE Specimen Plasma specimen Performing Organization Address City/State/Zipcode Phone Number [facility] DEPARTMENT OF PATHOLOGY AND [address] [place] [address] [facility] ECG ED Preliminary Interpretation - NOT AN ORDER (11/15/2017 8:03 PM)Only the most recent of11 resultswithin the time period is included. Narrative Performed At Keshav Gamboa MD 11/15/2017 11:34 PM ECG ED Preliminary Interpretation - Not an Order Performed by: KESHAV GAMBOA Authorized by: KESHAV GAMBOA ECG reviewed by ED Physician in the absence of a audiovisual tech: yes Interpretation: Interpretation: non-specific Rate: ECG rate:64 ECG rate assessment: normal Rhythm: Rhythm: paced Pacing: Capture:Intermittent Type of pacing:Atrial QRS: QRS axis:Normal QRS intervals:Wide ST segments: ST segments:Normal T waves: T waves: normal ECG 12 lead (11/15/2017 7:53 PM)Only the most recent of19 resultswithin the time period is included. Ventricular rate 64 [facility] Atrial rate 64 [facility] MS interval 160 [facility] QRSD interval 100 [facility] QT interval 420 [facility] QTC interval 433 [facility] P axis 1 75 [facility] QRS axis 1 65 [facility] T wave axis 84 [facility] EKG impression ^^^ Suspect unspecified pacemaker syujmiq-Wnwlid-ucqsrn ventricular-paced rhythm-Abnormal ECG-In automated comparison with ECG of 22:47,-Vent. rate has decreased BY16 BPM-Electronically [facility] M[facility] Signed By Ligia Strong MD ([id number]) on 11/16/2017 7:01:54 AM Performing Organization Address City/State/[facility] Phone Number [facility]USE [address] [place] [address] NM Lung Ventilation Perfusion (11/13/2017 1:44 AM) Narrative Performed At PROCEDURE: NM LUNG VENTILATION PERFUSION [facility] INDICATION: hx of prior PEconcern for recurrencecp COMPARISON: Chest radiograph 11/12/2017 and prior VQ scan 11/18/2015 TECHNIQUE: Ventilation images were acquired after inhalation of 10-20 mCi of Xe-133 gas. Perfusion imaging in multiple projections was performed after intravenous administration of 5 mCi of Tc-99m labeled MAA. FINDINGS: Ventilation and perfusion patterns have not significantly changed from the prior VQ scan. No suspicious segmental defects are seen. Gas washout has improved since the prior exam. IMPRESSION: Low probability of acute pulmonary embolism. [facility] Procedure Note Hm Interface, Radiology Results Incoming - 11/13/2017 3:19 AM CDT PROCEDURE: NM LUNG VENTILATION PERFUSION INDICATION: hx of prior PE concern for recurrence cp COMPARISON: Chest radiograph 11/12/2017 and prior VQ scan 11/18/2015 TECHNIQUE: Ventilation images were acquired after inhalation of 10-20 mCi of Xe -133 gas. Perfusion imaging in multiple projections was performed after intravenous administration of 5 mCi of Tc-99m labeled MAA. FINDINGS: Ventilation and perfusion patterns have not significantly changed from the prior VQ scan. No suspicious segmental defects are seen. Gas washout has improved since the prior exam. IMPRESSION: Low probability of acute pulmonary embolism. [facility] Performing Organization Address City/[facility] Phone Number [facility] [address] [place] [address] Basic metabolic panel (11/12/2017 10:58 PM)Only the most recent of5 resultswithin the time period is included. Sodium 143 135 - 148 mEq/L [facility] DEPARTMENT OF PATHOLOGY AND GENOMIC MEDICINE Potassium 4.6 3.5 - 5.0 mEq/L [facility] DEPARTMENT OF PATHOLOGY AND GENOMIC MEDICINE Chloride 106 98 - 112 mEq/L [facility] DEPARTMENT OF PATHOLOGY AND GENOMIC MEDICINE CO2 24 24 - 31 mEq/L [facility] DEPARTMENT OF PATHOLOGY AND GENOMIC MEDICINE Anion gap 13@ANIO 7 - 15 mEq/L [facility] DEPARTMENT OF PATHOLOGY AND GENOMIC MEDICINE BUN 32 (H) 6 - 20 mg/dL [facility] DEPARTMENT OF PATHOLOGY AND GENOMIC MEDICINE Creatinine 1.50 (H) 0.70 - 1.20 mg/dL [facility] DEPARTMENT OF PATHOLOGY AND GENOMIC MEDICINE Glucose 158 (H) 65 - 99 mg/dL [facility] DEPARTMENT OF PATHOLOGY AND GENOMIC MEDICINE Calcium 9.2 8.3 - 10.2 mg/dL [facility] DEPARTMENT OF PATHOLOGY AND GENOMIC MEDICINE Specimen Plasma specimen Performing Organization Address City/[facility] Phone Number [facility] DEPARTMENT OF [facility] AND [address] [place] [address] [place] [address] GENOMIC MEDICINE Smear review (11/11/2017 9:45 AM)Only the most recent of3 resultswithin the time period is included. Platelet slide review Slime slt incr [facility] DEPARTMENT OF PATHOLOGY AND GENOMIC MEDICINE Anisocytosis Moderate [facility] DEPARTMENT OF PATHOLOGY AND GENOMIC MEDICINE Polychromasia Moderate [facility] DEPARTMENT OF PATHOLOGY AND GENOMIC MEDICINE Spherocytes Occasional [facility] DEPARTMENT OF PATHOLOGY AND GENOMIC MEDICINE Ovalocytes Moderate [facility] DEPARTMENT OF PATHOLOGY AND GENOMIC MEDICINE James-Wimer bodies Occasional [facility] DEPARTMENT OF PATHOLOGY AND GENOMIC MEDICINE Enlarged platelets Moderate (A) [facility] DEPARTMENT OF PATHOLOGY AND GENOMIC MEDICINE Giant platelets Occasional [facility] DEPARTMENT OF PATHOLOGY AND GENOMIC MEDICINE Performing Organization Address City/[facility] Phone Number [facility] DEPARTMENT OF PATHOLOGY AND [address] [place] [address] Urine drugs of abuse screen (11/11/2017 9:45 AM)Only the most recent of5 resultswithin the time period is included. Amphetamine screen, urine Negative [facility] DEPARTMENT OF PATHOLOGY AND GENOMIC MEDICINE Barbiturate screen, urine Negative [facility] DEPARTMENT OF PATHOLOGY AND GENOMIC MEDICINE Benzodiazepine screen, Negative [facility] DEPARTMENT OF urine PATHOLOGY AND GENOMIC MEDICINE Cannabinoid screen, urine Negative [facility] DEPARTMENT OF PATHOLOGY AND GENOMIC MEDICINE Cocaine screen, urine Negative [facility] DEPARTMENT OF PATHOLOGY AND GENOMIC MEDICINE Methadone metabolite Negative [facility] DEPARTMENT OF (EDDP), urine PATHOLOGY AND GENOMIC MEDICINE Opiates screen, urine Negative [facility] DEPARTMENT OF PATHOLOGY AND GENOMIC MEDICINE Oxycodone screen, urine Negative [facility] DEPARTMENT OF PATHOLOGY AND GENOMIC MEDICINE Phencyclidine screen, urine Negative [facility] DEPARTMENT OF PATHOLOGY AND GENOMIC MEDICINE Tricyclic screen, urine Negative [facility] DEPARTMENT OF Comment: PATHOLOGY AND GENOMIC Drug screen minimum concentration of detectability MEDICINE Eekldfvbhhbs8478 ng/mL Barbiturates 200 ng/mL Idpwvgphzppjnxo860 ng/mL Lbjzerl333 ng/mL Zaprukysc562 ng/mL Sewphyg208 ng/mL Jkkvhyezq359 ng/mL Phencyclidine 25 ng/mL Vlugtsibpwii86 ng/mL Nxbzomxcff4811 ng/mL Negative test results indicates presumptive evidence of lack of clinically significant drug concentration in this urine specimen. Positive test results are presumptive evidence of clinically significant drug concentration in this urine specimen. Testing performed for medical purposes only. Specimen Urine Performing Organization Address City/[facility] Services[facility] Phone Number [facility] DEPARTMENT OF PATHOLOGY AND [address] [place] [address] [facility] Thyroid stimulating hormone (11/11/2017 9:45 AM)Only the most recent of3 resultswithin the time period is included. TSH 2.20 0.27 - 4.20 uIU/mL [facility] DEPARTMENT OF PATHOLOGY AND GENOMIC MEDICINE Specimen Plasma specimen Performing Organization Address City/[facility]/Zipcode Phone Number [facility] DEPARTMENT OF PATHOLOGY AND [address] [place] [id number] [place] [address] MEDICINE T4, free (11/11/2017 9:45 AM)Only the most recent of2 resultswithin the time period is included. T4, free 1.6 0.9 - 1.7 ng/dL [facility] DEPARTMENT OF PATHOLOGY AND GENOMIC MEDICINE Specimen Plasma specimen Performing Organization Address [facility] Services[facility] Phone Number [facility] DEPARTMENT OF PATHOLOGY AND [address] [place] [address] Alcohol level, blood (11/11/2017 9:45 AM)Only the most recent of3 resultswithin the time period is included. Alcohol None Detected mg/dL [facility] DEPARTMENT OF PATHOLOGY Comment: AND GENOMIC MEDICINE Normal None Detected Legal Intoxication in [place]80 mg/dL (0.08%) - Whole Blood Toxic Nfuibofuacbvt175 mg/dL (0.2%) Potentially Qhfur012 - 500 mg/dL (0.35 - 0.5%) Alcohol percent None Detected % [facility] DEPARTMENT OF PATHOLOGY AND GENOMIC MEDICINE Specimen Plasma specimen Performing Organization Address [facility] Phone Number [facility] DEPARTMENT OF PATHOLOGY AND [address] [place] [address] Acetaminophen level (11/11/2017 9:45 AM)Only the most recent of2 resultswithin the time period is included. Acetaminophen level <5.0 (L) 10.0 - 30.0 ug/mL [facility] DEPARTMENT OF Comment: PATHOLOGY AND GENOMIC Therapeutic 10-30 ug/mL MEDICINE Possible Toxicity 150-200 ug/mL Probable Toxicity >200 ug/mL Specimen Plasma specimen Performing Organization Address [facility] Phone Number [facility] DEPARTMENT OF PATHOLOGY AND [address] [place] [address] Salicylate level (11/11/2017 9:45 AM)Only the most recent of2 resultswithin the time period is included. Salicylate <3.0 3.0 - 30.0 mg/dL [facility] DEPARTMENT OF PATHOLOGY AND GENOMIC MEDICINE Specimen Plasma specimen Performing Organization Address [facility] Services[facility] Phone Number [facility] DEPARTMENT OF PATHOLOGY AND [address] [place] [address] CT Lumbar Spine Wo Contrast (10/17/2017 7:19 PM) Narrative Performed At Examination: CT lumbar spine without. [facility] Clinical History: low back pain weakness [...] bilateral foraminal stenosis at L4-5 and L5-S1. [id number] Procedure Note Hm Interface, Radiology Results 10/17/2017 8:07 PM CDT Examination: CT lumbar [...] bilateral foraminal stenosis at L4-5 and L5-S1. [id number] Performing Organization Address City/State/Zipcode Phone Number [facility] [address] [place] [address] Estimated GFR (10/17/2017 7:15 AM)Only the most recent of10 resultswithin the time period is included. GFR Non Af Amer 56 (A) mL/min/1.73 m2 [facility] DEPARTMENT OF PATHOLOGY AND GENOMIC MEDICINE GFR Af Amer 68 mL/min/1.73 m2 [facility] DEPARTMENT OF Comment: PATHOLOGY AND GENOMIC Chronic kidney disease: <60 mL/min/1.73m2 MEDICINE Kidney [...] specimen Performing Organization Address City/State/Zipcode Phone Number [facility] DEPARTMENT OF PATHOLOGY AND [facility] [place] [address] GENOMIC MEDICINE XR Lumbar Spine 2 Or 3 Vw [...] acute osseous abnormality of the lumbar spine. [facility]-[id number] Procedure Note Hm Interface, Radiology Results Incoming - 10/11/2017 4:36 [...] acute osseous abnormality of the lumbar spine. [facility]-[id number] Performing Organization Address City/State/Zipcode Phone Number [facility] [address] [place] [address] Lipase level (09/23/2017 2:17 PM)Only the most recent of2 resultswithin the time period is included. Lipase 40 13 - 60 U/L [facility] DEPARTMENT OF PATHOLOGY AND GENOMIC MEDICINE Specimen Plasma specimen Performing Organization Address City/[facility] Services[facility] Phone Number [facility] DEPARTMENT OF PATHOLOGY AND [address] [place] [address] [place] [address] [facility] MEDICINE Hepatic function panel (09/23/2017 2:17 PM) Albumin 4.2 3.5 - 5.0 g/dL [facility] DEPARTMENT OF PATHOLOGY AND GENOMIC MEDICINE Total bilirubin 0.3 0.0 - 1.2 mg/dL [facility] DEPARTMENT OF PATHOLOGY AND GENOMIC MEDICINE Bilirubin direct <0.1 0.0 - 0.3 mg/dL [facility] DEPARTMENT OF PATHOLOGY AND GENOMIC MEDICINE Alkaline phosphatase 105 40 - 129 U/L [facility] DEPARTMENT OF PATHOLOGY AND GENOMIC MEDICINE Protein 7.3 6.3 - 8.3 g/dL [facility] DEPARTMENT OF Comment: PATHOLOGY AND GENOMIC 4.6-7.0 g/dL MEDICINE 1 week 4.4-7.6 g/dL 7 months-1year5.1-7.3 g/dL 1-2 years5.6-7.5 g/dL >3 years6.0-8.0 g/dL 18-150 6.3-8.3 g/dL ALT 20 5 - 50 U/L [facility] DEPARTMENT OF PATHOLOGY AND GENOMIC MEDICINE AST 32 10 - 50 U/L [facility] DEPARTMENT OF PATHOLOGY AND GENOMIC MEDICINE Specimen Plasma specimen Performing Organization Address [facility] Phone Number [facility] DEPARTMENT OF PATHOLOGY AND [address] [place] [address] [place] [address] GENOMIC MEDICINE Manual differential (09/22/2017 1:20 AM) Manual differential PERFORMED [facility] DEPARTMENT OF PATHOLOGY AND GENOMIC MEDICINE Neutrophils 53.0 39.0 - 69.0 % [facility] DEPARTMENT OF PATHOLOGY AND GENOMIC MEDICINE Lymphocytes 36.0 25.0 - 45.0 % [facility] DEPARTMENT OF PATHOLOGY AND GENOMIC MEDICINE Monocytes 9.0 0.0 - 10.0 % [facility] DEPARTMENT OF PATHOLOGY AND GENOMIC MEDICINE Eosinophils 1.0 0.0 - 5.0 % [facility] DEPARTMENT OF PATHOLOGY AND GENOMIC MEDICINE Basophils 1.0 0.0 - 1.0 % [facility] DEPARTMENT OF PATHOLOGY AND GENOMIC MEDICINE Metamyelocytes 0 % [facility] DEPARTMENT OF PATHOLOGY AND GENOMIC MEDICINE Promyelocytes 0 % [facility] DEPARTMENT OF PATHOLOGY AND GENOMIC MEDICINE Reactive lymphocytes Few [facility] DEPARTMENT OF PATHOLOGY AND GENOMIC MEDICINE Platelet slide review Slime slt incr [facility] DEPARTMENT OF PATHOLOGY AND GENOMIC MEDICINE Anisocytosis Moderate [facility] DEPARTMENT OF PATHOLOGY AND GENOMIC MEDICINE Ovalocytes Moderate [facility] DEPARTMENT OF PATHOLOGY AND GENOMIC MEDICINE [place] cells Moderate (A) [facility] DEPARTMENT OF PATHOLOGY AND GENOMIC MEDICINE Performing Organization Address City/[facility] Services[facility] Phone Number [facility] DEPARTMENT OF PATHOLOGY AND [address] [place] [address] C-reactive protein (09/22/2017 1:20 AM) CRP 0.45 0.00 - 0.50 mg/dL [facility] DEPARTMENT OF PATHOLOGY AND GENOMIC MEDICINE Specimen Plasma specimen Performing Organization Address [facility] Phone Number [facility] PATHOLOGY AND [address] [place] [address] Cv stress test (09/06/2017 2:04 PM) Resting HR 60 [facility] Resting BP 140 [facility] Peak MET Achieved 1.0 [facility] Protocol Name ELY [facility] Time in Exercise Phase 00:01:00 [facility] Max Systolic BP 140 [facility] Max Diastolic BP 80 [facility] Max Heart Rate 85 [facility] Max Predicted Heart Rate 161 [facility] M[facility] Target HR Formula (220 - Age)*100% [facility] M[facility] Test Indication chest pain [facility] M[facility] Stress Test Impression Waveform interpreted in report [facility] associated with image study. No interpretation is provided as part of this Stress ECG report.--Electronically Signed By Sera Bailey MD ([id number]), website/blog editor Trisha Mccormack ([id number]) on 09/06/2017 9:56:09 AM Target HR 136.85 bpm H MUSE Performing Organization Address [facility] Phone Number [facility] [address] [place] [address] Myocardial perfusion (09/06/2017 2:04 PM)Only the most recent of2 resultswithin the time period is included. Target HR 136.85 bpm [facility] Resting HR 60 BPM [facility] Resting BP 140/74 mmHg [facility] Narrative Performed At The study is normal. [facility] Study Quality: good. SPECT images demonstrate a normal perfusion study. Normal left ventricular systolic function. Performing Organization Address City/State/Zipcode Phone Number [facility] [address] [place] [address] Echocardiogram complete w contrast and 3D if [...] LV EF,BP 60.88 % [facility] [place],d A2C 8.91 cm [facility] [place],d A4C 7.41 cm [facility] [place],s A2C 7.37 cm [facility] [place],s A4C 6.13 cm [facility] LV,s 3.61 [...] [facility] AoV area i VTI [place] 1.37 cm2/m2 [facility] LV SI MOD BP [place] 45.17 ml/m2 [facility] LV Vol Index s bpmod [place] 74.18 ml/m2 [facility] PV Vmn 29.02 [...] is 55 - 60%. Performing Organization Address [facility] Phone Number [facility] [address] [place] [address] Cv stress procedure (06/30/2017 9:50 AM) Resting HR 63 [facility] Resting BP [facility] Peak MET Achieved 7.0 [facility] Protocol Name [facility] Time in Exercise Phase 00:05:16 H MUSE Max Systolic BP 160 [facility] Max Diastolic BP 82 [facility] Max Heart Rate 88 [facility] Max Predicted Heart Rate 161 [facility] Target HR Formula (220 - Age)*100% [facility] Test Indication [facility] Arrhy During Ex H MUSE ECG Interp Before EX [facility] ECG Interp During Ex H MUSE Ex Summary Comment [facility] Overall HR Response to [facility] Exercise Overall BP Response To [facility] Exercise Reason for Termination [facility] Stress Test Impression Waveform interpreted in report [facility] associated with image study. No interpretation is provided as part of this Stress ECG report.--Electronically Signed By Sera Bailey MD ([id number]), website/blog editor Diana Menjivar ([id number]) on 06/30/2017 10:12:35 AM Performing Organization Address City/State/Zipcode Phone Number [facility] YWLR [address] [place] [address] Echocardiogram complete w contrast and 3D if [...] LA Ao Ratio Mmode 1.16 [facility] MS End [place] Grad 8.27 [facility] MS End Diat Arthur 1.44 [facility] D [...] LV EF,BP 44.51 % [facility] [place],d A2C 8.50 cm [facility] [place],d A4C 8.54 cm [facility] [place],s A2C 7.79 cm [facility] [place],s A4C 7.12 cm [facility] LV SV,A2C [...] filling. Performing Organization Address City/State/Zipcode Phone Number [facility] [address] [place] [address] CRITICAL CARE (06/28/2017 1:01 PM) Narrative Performed [...] Xa, unfractionated 0.39Comment: 0.30 - 0.70 U/mL [facility] DEPARTMENT OF Therapeutic Range: PATHOLOGY AND GENOMIC 0.30 - 0.70 U/mL MEDICINE Specimen Blood Performing Organization Address City/State/Zipcode Phone Number [facility] DEPARTMENT OF PATHOLOGY AND [address] [place] [address] [facility] CBC hemogram (06/18/2017 5:19 AM) WBC 11.36 (H) 4.50 - 11.00 k/uL [facility] DEPARTMENT OF PATHOLOGY AND GENOMIC MEDICINE RBC 3.49 (L) 4.40 - 6.00 m/uL [facility] DEPARTMENT OF PATHOLOGY AND GENOMIC MEDICINE HGB 11.6 (L) 14.0 - 18.0 g/dL [facility] DEPARTMENT OF PATHOLOGY AND GENOMIC MEDICINE HCT 36.2 (L) 41.0 - 51.0 % [facility] DEPARTMENT OF PATHOLOGY AND GENOMIC MEDICINE MCV 103.7 (H) 82.0 - 100.0 fL [facility] DEPARTMENT OF PATHOLOGY AND GENOMIC MEDICINE MCH 33.2 27.0 - 34.0 pg [facility] DEPARTMENT OF PATHOLOGY AND GENOMIC MEDICINE MCHC 32.0 31.0 - 37.0 g/dL [facility] DEPARTMENT OF PATHOLOGY AND GENOMIC MEDICINE RDW - SD 54.7 37.0 - 55.0 fL [facility] DEPARTMENT OF PATHOLOGY AND GENOMIC MEDICINE MPV 9.4 8.8 - 13.2 fL [facility] DEPARTMENT OF PATHOLOGY AND GENOMIC MEDICINE Platelet count 347 150 - 400 k/uL [facility] DEPARTMENT OF PATHOLOGY AND GENOMIC MEDICINE Nucleated RBC 0.00 /100 WBC [facility] DEPARTMENT OF PATHOLOGY AND GENOMIC MEDICINE Specimen Blood Performing Organization Address City/State/Zipcode Phone Number [facility] DEPARTMENT OF PATHOLOGY AND [address] [place] [address] GENOMIC MEDICINE Echocardiogram complete w contrast and 3D if [...] [facility] AoV area i VTI [place] 2.13 cm2/m2 [facility] MR peak grad [...] LV FS Teich 2D 29.66 [facility] MS End [place] Grad 1.31 [facility] MS End Diat [place] 6.35 [facility] D [...] LV EF,BP 56.89 % [facility] [place],d A2C 7.92 cm [facility] [place],d A4C 7.11 cm [facility] [place],s A2C 6.39 cm [facility] [place],s A4C 5.20 cm [facility] LV SV,A2C 91.99 % [facility] LV SV,A4C 50.96 % [facility] LV SV,BP 70.02 % [facility] LV Vol,d BP 123.07 ml [facility] LV Vol,s BP 53.05 nl [facility] LV SI MOD BP [place] 34.87 ml/m2 [facility] LV Vol Index s bpmod BSA [place] 61.29 ml/m2 [facility] PV Vmn 26.42 [...] left ventricular diastolic filling. Performing Organization Address [facility] Phone Number [facility] [address] [place] [address] PV duplex venous lower extremity (06/16/2017 3:50 PM) Narrative Performed At The right lower extremity was positive for deep vein thrombosis in the [facility] femoral vein and popliteal vein. The left lower extremity was positive for deep vein thrombosis in the popliteal vein. Performing Organization Address [facility] Phone Number [facility] [address] [place] [address] CT Angiogram Pe Chest (06/15/2017 6:28 PM) [...] Dr. NATHALY HAWK at 06/15/2017 6:59 PM. [facility]-[id number] Procedure Note [facility], Radiology Results [facility] - 06/15/2017 7:03 PM CDT EXAMINATION: CT [...] Dr. NATHALY HAWK at 06/15/2017 6:59 PM. [facility]-[id number] Performing Organization Address City/State/Zipcode Phone Number [facility] [address] [place] [address] D-dimer (06/15/2017 2:56 PM) D-dimer 0.87 (H) 0.00 - 0.40 ug/mL FEU [facility] DEPARTMENT OF Comment: PATHOLOGY AND GENOMIC [...] and malignancies. Specimen Blood Performing Organization Address [facility] Phone Number [facility] DEPARTMENT OF PATHOLOGY AND [address] [place] [address] GENOMIC MEDICINE CRITICAL CARE (06/15/2017 2:50 PM) Narrative Performed At Nathaly Hawk DO 06/15/20179:24 PM Critical Care Performed by: [...] this patient from another provider.: no after 12/19/2016 Insurance Payer Benefit Plan / Group Subscriber ID Type Phone Address [employer] xxxxxxxxx O [phone] [address]
--- OUTSIDE RECORDS SUMMARY | 2017-12-20 19:51 | XMS REPORT ---
:1960 [facility] Address [address] [place] [address] Care Team Providers Name Role Phone ER, PHYSICIAN Primary Care Provider Unavailable QUINN MORAN Unavailable Unavailable DIMITRIOS CEBALLOS Unavailable Unavailable Payers Payer Name Policy Type Policy Number Effective Date Expiration Date Problems This patient has no known problems. Allergies, Adverse Reactions, Alerts Allergy Name Allergy Status Severity Reaction(s) Onset Inactive Treating Comments Type Date Date Clinician nitroglycerin DA Active SV 2017-03 00:00: 00 codeine DA Active U 2017-03 00:00: 00 ibuprofen DA Active U 2017-03 00:00: 00 tramadol DA Active SV 2017-03 00:00: 00 nitroglycerin DA Active SV 11-12 00:00: 00 codeine DA Active U 11-12 00:00: 00 ibuprofen DA Active U 11-12 00:00: 00 tramadol DA Active SV 11-12 00:00: 00 nitroglycerin DA Active SV 11-11 00:00: 00 codeine DA Active U 2017-0 913 00:00: 00 ibuprofen DA Active U 2017-0 913 00:00: 00 tramadol DA Active SV 2017-0 913 00:00: 00 codeine DA Active U 2017-0 9-07 00:00: 00 nitroglycerin DA Active SV 0 9 00:00: 00 ibuprofen DA Active U 0 9 00:00: 00 tramadol DA Active SV 0 902 00:00: 00 nitroglycerin DA Active SV 0 827 00:00: 00 ibuprofen DA Active U 0 827 00:00: 00 tramadol DA Active SV 0 827 00:00: 00 Medications This patient has no known medications. Results Test Description Test Time Test Comments Text Results Atomic Results Result Comments CT, BRAIN, 2017-10-11 Reason for exam:->CHEST FINAL REPORT PATIENT ID: WITHOUT CONTRAST 02:50:00 PAINReason for [id number] CLINICAL exam:->FALLWhat is the HISTORY: Trauma and [...] detection of acute ischemia. Signed: Adarsh Palacios Verified Date/Time: 10/11/2017 02:50:02 Reading Location: [address] Reading Room TINE KINASE (CK), TOTAL AND MB 2017-10-11 02:46:00 Test Item Value Reference Range Comments CREATINE KINASE TOTAL (BEAKER) (test fvyt=847) 119 U/L 29-200 CREATINE KINASE-MB (BEAKER) (test joxz=757) 3.1 ng/mL 0.0-6.6 CREATINE KINASE-MB INDEX (BEAKER) (test ejkn=930) 2.6 % CK-MB Reference Range:<6.7 Normal6.7-10.0 Borderline>10.0 AbnormalTROPONIN [id number] 02:46:00 Test Item Value Reference Range Comments TROPONIN I (BEAKER) (test voxj=022) 0.01 ng/mL 0.00-0.03 Troponin I (TnI) levels [...] and persistent tachyarrhythmia.CBC W/PLT COUNT & AUTO [id number] 02:43:00 Test Item Value Reference Range Comments WHITE BLOOD CELL COUNT (BEAKER) (test vtbq=139) 18.9 K/ L 3.5-10.5 RED BLOOD CELL COUNT (BEAKER) (test ugdi=741) 3.20 M/ L 4.63-6.08 HEMOGLOBIN (BEAKER) (test gwtk=026) 10.6 GM/DL 13.7-17.5 HEMATOCRIT (BEAKER) (test iozq=909) 33.0 % 40.1-51.0 MEAN CORPUSCULAR VOLUME (BEAKER) (test knay=509) 103.1 fL 79.0-92.2 MEAN CORPUSCULAR HEMOGLOBIN (BEAKER) (test 33.1 pg 25.7-32.2 ullq=245) MEAN CORPUSCULAR HEMOGLOBIN CONC (BEAKER) (test 32.1 GM/DL 32.3-36.5 wasn=143) RED CELL DISTRIBUTION WIDTH (BEAKER) (test 14.8 % 11.6-14.4 rzwt=977) PLATELET COUNT (BEAKER) (test yfyg=609) 412 K/CU MM 150-450 MEAN PLATELET VOLUME (BEAKER) (test pvjj=541) 8.7 fL 9.4-12.4 NUCLEATED RED BLOOD CELLS (BEAKER) (test 0 /100 WBC 0-0 xtmr=857) NEUTROPHILS RELATIVE PERCENT (BEAKER) (test 56 % dxlj=135) LYMPHOCYTES RELATIVE PERCENT (BEAKER) (test 34 % pszu=785) MONOCYTES RELATIVE PERCENT (BEAKER) (test 7 % donj=772) EOSINOPHILS RELATIVE PERCENT (BEAKER) (test 2 % bzyz=841) BASOPHILS RELATIVE PERCENT (BEAKER) (test 1 % atnv=464) NEUTROPHILS ABSOLUTE COUNT (BEAKER) (test 10.62 K/ L 1.78-5.38 hvjw=196) LYMPHOCYTES ABSOLUTE COUNT (BEAKER) (test 6.37 K/ L 1.32-3.57 ppxi=037) MONOCYTES ABSOLUTE COUNT (BEAKER) (test 1.24 K/ L 0.30-0.82 jqgz=007) EOSINOPHILS ABSOLUTE COUNT (BEAKER) (test 0.46 K/ L 0.04-0.54 fkdp=731) BASOPHILS ABSOLUTE COUNT (BEAKER) (test 0.13 K/ L 0.01-0.08 henn=426) IMMATURE GRANULOCYTES-RELATIVE PERCENT (BEAKER) 1 % 0-1 (test rutt=2311) BASIC METABOLIC [id number] 02:40:00 Test Item Value Reference Range Comments SODIUM (BEAKER) (test 141 meq/L 136-145 rkuj=278) POTASSIUM (BEAKER) (test 4.2 meq/L 3.5-5.1 eimz=588) CHLORIDE (BEAKER) (test 111 meq/L 98-107 etqa=730) CO2 (BEAKER) (test 21 meq/L 22-29 njrt=482) BLOOD UREA NITROGEN 28 mg/dL 7-21 (BEAKER) (test fbal=809) CREATININE (BEAKER) (test 1.15 mg/dL 0.57-1.25 eapq=298) GLUCOSE RANDOM (BEAKER) 99 mg/dL 70-105 (test bpfk=189) CALCIUM (BEAKER) (test 9.1 mg/dL 8.4-10.2 korw=910) EGFR (BEAKER) (test 65 mL/min/1.73 sq m ESTIMATED GFR IS NOT yijk=7696) ACCURATE CREATININE CLEARANCE IN PREDICTING GLOMERULAR FILTRATION RATE. ESTIMATED GFR IS NOT APPLICABLE FOR DIALYSIS PATIENTS. [id number] 02:37:00 Test Item Value Reference Range Comments ETHANOL (BEAKER) (test xvdz=270) < mg/dL <=10 RAD, CHEST, 1 VIEW, NON [id number] 02:20:00Reason for exam:->CHEST PAINReason for exam:->FALLShould this [...] MDReport Verified Date/Time: 10/11/2017 02:20:28 Reading Location: [address] Body Reading Room RAD, CHEST, 1 VIEW, NON [id number] 23:14:00Reason for exam:-> CHEST PAINFINAL REPORT RAD, CHEST, 1 VIEW, NON DEPT INDICATION: CHEST PAIN COMPARISON: Chest x-ray in 2015 TECHNIQUE: Single frontal view of the chest. IMPRESSION:Stable ICD leads.No cardiomegaly.Enlarged pulmonary arteries.No pneumothorax.No overt consolidative or congestive change.No acute osseous abnormality. Signed: Adenike Muñoz MDReport Verified Date/Time: 09/21/2017 23:14:36 Reading Location: [address] Reading Room 11: 14 PMPT/[id number] 22:59:00 Test Item Value Reference Range Comments PROTIME (BEAKER) (test lmen=208) 16.9 seconds 11.7-14.7 INR (BEAKER) (test mokm=953) 1.4 <=5.9 PARTIAL THROMBOPLASTIN TIME (BEAKER) (test 26.9 seconds 22.5-36.0 rbeh=573) RECOMMENDED COUMADIN/WARFARIN INR THERAPY RANGESSTANDARD DOSE: 2.0 - 3.0 Includes: PROPHYLAXIS forvenous thrombosis, systemic embolization; TREATMENT for venous thrombosis and/or pulmonary embolus.HIGH RISK: Target INR is 2.5-3.5 for patients with mechanical heart valves.CREATINE KINASE (CK), TOTAL AND [id number] 22:58:00 Test Item Value Reference Range Comments CREATINE KINASE TOTAL (BEAKER) (test qnpn=910) 212 U/L 29-200 CREATINE KINASE-MB (BEAKER) (test nwva=018) 5.0 ng/mL 0.0-6.6 CREATINE KINASE-MB INDEX (BEAKER) (test ljmm=414) 2.4 % CK-MB Reference Range:<6.7 Normal6.7-10.0 Borderline>10.0 AbnormalTROPONIN [id number] 22:58:00 Test Item Value Reference Range Comments TROPONIN I (BEAKER) (test mrhv=532) 0.02 ng/mL 0.00-0.03 Troponin I (TnI) levels [...] failure, acidosis, acute neurological disease, and persistent tachyarrhythmia.[id number] 22:50:00 Test Item Value Reference Range Comments MAGNESIUM (BEAKER) (test jocz=860) 2.3 mg/dL 1.6-2.6 BASIC METABOLIC [id number] 22:50:00 Test Item Value Reference Range Comments SODIUM (BEAKER) (test 140 meq/L 136-145 roii=311) POTASSIUM (BEAKER) (test 4.5 meq/L 3.5-5.1 osdp=591) CHLORIDE (BEAKER) (test 110 meq/L 98-107 mtir=583) CO2 (BEAKER) (test 17 meq/L 22-29 tkfv=327) BLOOD UREA NITROGEN 27 mg/dL 7-21 (BEAKER) (test ysoz=472) CREATININE (BEAKER) (test 1.69 mg/dL 0.57-1.25 iafj=216) GLUCOSE RANDOM (BEAKER) 79 mg/dL 70-105 (test zrgl=337) CALCIUM (BEAKER) (test 9.7 mg/dL 8.4-10.2 eveq=379) EGFR (BEAKER) (test 42 mL/min/1.73 sq m ESTIMATED GFR IS NOT oiya=5159) ACCURATE CREATININE CLEARANCE IN PREDICTING GLOMERULAR FILTRATION RATE. ESTIMATED GFR IS NOT APPLICABLE FOR DIALYSIS PATIENTS. CBC W/PLT COUNT & AUTO [id number] 22:32:00 Test Item Value Reference Range Comments WHITE BLOOD CELL COUNT (BEAKER) (test rpkl=717) 16.4 K/ L 3.5-10.5 RED BLOOD CELL COUNT (BEAKER) (test efgb=389) 3.77 M/ L 4.63-6.08 HEMOGLOBIN (BEAKER) (test shyj=114) 12.6 GM/DL 13.7-17.5 HEMATOCRIT (BEAKER) (test qxep=235) 37.8 % 40.1-51.0 MEAN CORPUSCULAR VOLUME (BEAKER) (test fbes=359) 100.3 fL 79.0-92.2 MEAN CORPUSCULAR HEMOGLOBIN (BEAKER) (test 33.4 pg 25.7-32.2 uqfn=931) MEAN CORPUSCULAR HEMOGLOBIN CONC (BEAKER) (test 33.3 GM/DL 32.3-36.5 bzjc=254) RED CELL DISTRIBUTION WIDTH (BEAKER) (test 14.5 % 11.6-14.4 dyzg=970) PLATELET COUNT (BEAKER) (test shox=027) 376 K/CU MM 150-450 MEAN PLATELET VOLUME (BEAKER) (test zxzy=091) 8.5 fL 9.4-12.4 NUCLEATED RED BLOOD CELLS (BEAKER) (test 0 /100 WBC 0-0 elam=506) NEUTROPHILS RELATIVE PERCENT (BEAKER) (test 54 % kzos=452) LYMPHOCYTES RELATIVE PERCENT (BEAKER) (test 34 % szbv=587) MONOCYTES RELATIVE PERCENT (BEAKER) (test 10 % ybcs=709) EOSINOPHILS RELATIVE PERCENT (BEAKER) (test 1 % lrtg=328) BASOPHILS RELATIVE PERCENT (BEAKER) (test 1 % muxl=697) NEUTROPHILS ABSOLUTE COUNT (BEAKER) (test 8.86 K/ L 1.78-5.38 wfvl=689) LYMPHOCYTES ABSOLUTE COUNT (BEAKER) (test 5.50 K/ L 1.32-3.57 vdfn=647) MONOCYTES ABSOLUTE COUNT (BEAKER) (test 1.63 K/ L 0.30-0.82 zcit=561) EOSINOPHILS ABSOLUTE COUNT (BEAKER) (test 0.21 K/ L 0.04-0.54 uyoq=281) BASOPHILS ABSOLUTE COUNT (BEAKER) (test 0.15 K/ L 0.01-0.08 ihdl=578) IMMATURE GRANULOCYTES-RELATIVE PERCENT (BEAKER) 0 % 0-1 (test nvrx=0417) RPR, [id number] 13:10:00 Test Item Value Reference Range Comments RPR (test code=RPR) Non-Reactive Non-Reactive Thyroid Stimulating Hormone (TSH)2016-10-17 03:28:00 Test Item Value Reference Range Comments TSH (test code=TSH) 0.92 mIU/mL 0.270-4.200 Lipid [id number] 03:21:00 Test Item Value Reference Range Comments Cholesterol (test 117 mg/dL 0-200 code=CHOL) Triglycerides (test 131 mg/dL 9-200 code=TRIG) HDL (test code=HDL) 24 mg/dL 40-60 Chol/HDL (test 4.9 Ratio 0.0-5.0 code=CHOLPHDL) LDL, Calculated (test 67 0-130 (NOTE)RISK OF HEART code=LDLC) DISEASEPublished by Icelandic Heart AssociationAnalyte Optimal Boderline Increased RiskCHOL <200 200-239 >240TRIG <150 150-199 >200HDL Male: >60 <40HDL Female: >60 <50LDL <100 130-159 >160LDL NEAR OPTIMAL IS 100-129 VLDL (test code=VLDL) 26 mg/dL 5-40 LDL/HDL (test code=LDLPHDL) 3 Urinalysis [id number] 23:23:00 Test Item Value Reference Range Comments Color (test code=COLOR) Yellow Yellow,Straw,Pl yellow Clarity (test code=CLAR) Clear Clear Specific [place] (test code=SPGR) 1.014 1.001-1.035 pH (test code=PH) [...] 0-5 Bacteria (test code=BACT) Few /HPF Troponin [id number] 23:16:00 Test Item Value Reference Range Comments Troponin T (test code=BRITTANY) <0.010 ng/mL 0.000-0.090 [id number] 23:14:00 Test Item Value Reference Range Comments [...] (test <0.01 g/dL 0.00-0.01 code=ETOHU) Comprehensive Metabolic [id number] 23:14:00 Test Item Value Reference Range Comments [...] race is not provided, and the patient isAfrican-Icelandic, multiply by 1.212. If sex is not [...] the National Kidney Foundation,http://nkdep.nih .gov CBC with [id number] 23:01:00 Test Item Value Reference Range Comments [...] Lymph Abs (test code=ALYMPH) 4.5 K/cumm 0.5-4.6 [place] Abs (test code=AMONO) 0.9 K/cumm 0.0-1.2 Eos Abs (test code=AEOS) 0.85 K/cumm 0.00-0.74 Baso Abs (test code=ABASO) 0.2 K/cumm 0.00-0.21 Macrocytosis (test code=MACRO) Slight XR CHEST 1 [id number] 22:48:57LOCATION: [id number]: 56-year-old male with chest pain.COMMENT: After-hours service [...]
--- OUTSIDE RECORDS SUMMARY | 2017-12-20 19:51 | XMS REPORT | Clinical Summary ---
:1960 Author Organization [facility] Address [address] [place] [address] Phone Care Team Providers Name Role Phone [...] Problem Noted Date Atrial fibrillation with RVR ([facility]) 10/10/2014 Chronic pain 03/31/2014 History of pulmonary embolism 03/30/2014 Schizophrenia ([facility]) 03/30/2014 Tobacco abuse 03/30/2014 Marijuana abuse 03/30/2014 [...] 09/21/2017 Orders Only General Internal Medicine after 12/19/2016 Social History Tobacco Use Types Packs/Day Years [...] MD Report Verified Date/Time:10/11/2017 02:50:02 Reading Location: [address] Reading Room Procedure Note Interface, External [...] Report Verified Date/Time: 10/11/2017 02:50:02 Reading Location: [address] Reading Room chest 1 view portable [...] MD Report Verified Date/Time:10/11/2017 02:20:28 Reading Location: [address] Body Reading Room Procedure Note [...] Report Verified Date/Time: 10/11/2017 02:20:28 Reading Location: [address] Body Reading Room with platelet [...] - 1 % Specimen Performing Laboratory Blood [address] [address] Troponin I (10/11/2017 2:06 AM)Only the most recent of2 resultswithin the time period is included. Component Value Ref Range Troponin I 0.01 0.00 - 0.03 ng/mL Specimen Performing Laboratory Blood [address] [address] Narrative Troponin I (TnI) levels must be [...] Status --------- ------ CBC with platelet count ...[[id number]]Abnormal Edited Result - FINAL Please view results for these tests on the individual orders. Creatine Kinase (CK), Total and MB (10/11/2017 2:06 AM)Only the most recent of2 resultswithin the time period is included. Component Value Ref Range Total CK 119 29 - 200 U/L CK-MB 3.1 0.0 - 6.6 ng/mL MB Relative Index 2.6 % Specimen Performing Laboratory Blood [address] [address] Narrative CK-MB Reference Range: <6.7Normal 6.7-10.0Borderline >10.0 Abnormal Ethanol (10/11/2017 2:06 AM) Component Value Ref Range Ethanol Lvl <10 <=10 mg/dL Specimen Performing Laboratory Blood [address] [address] Basic Metabolic Panel (10/11/2017 2:06 AM)Only the [...] APPLICABLE FOR DIALYSIS PATIENTS. Specimen Performing Laboratory [address] [address] ECG 12 lead (10/11/2017 1:56 AM)Only the most recent of2 resultswithin the time period is included. Specimen Performing Laboratory GE MUSE Narrative Ventricular Rate 60 BPM Atrial Rate 60 BPM P-R Interval 82 ms QRS Duration 132 ms Q-T Interval 490 ms QTC Calculation(Bazett) 490 ms P [place] 24 degrees R [place] 214 degrees T [place] 79 degrees Atrial-sensed ventricular-paced rhythm When compared with ECG of 21-SEP-2017 21:03, No significant changes Confirmed by Mateo HUGGINS BASANT ([id number]) on 10/11/2017 12:40:56 PM Procedure Note Interface, External Ris In - 10/11/2017 12:41 PM CDT Ventricular Rate 60 BPM Atrial Rate 60 BPM P-R Interval 82 ms QRS Duration 132 ms Q-T Interval 490 ms QTC Calculation(Bazett) 490 ms P [place] 24 degrees R [place] 214 degrees T [place] 79 degrees Atrial-sensed ventricular-paced rhythm When compared with ECG of 21-SEP-2017 21:03, No significant changes Confirmed by Mateo HUGGINS BASANT ([id number]) on 10/11/2017 12:40:56 PM ED ECG Interpretation (09/22/2017 6:07 PM) Quinn Quan MD 09/22/20176:07 PM ECG/EKG Interpretation Date/Time: 09/21/2017 11:20 PM Performed by: QUINN VELARDE Authorized by: QUNIN VELARDE The ECG was interpreted by ED [...] seconds Specimen Performing Laboratory Blood - Arm, [address] [address] Narrative RECOMMENDED COUMADIN/WARFARIN INR THERAPY RANGES STANDARD DOSE: 2.0 - 3.0 Includes: PROPHYLAXIS for venous thrombosis, systemic embolization; TREATMENT for venous thrombosis and/or pulmonary embolus. HIGH RISK: Target INR is 2.5-3.5 for patients with mechanical heart valves. Magnesium (09/21/2017 10:15 PM) Component Value Ref Range Magnesium 2.3 1.6 - 2.6 mg/dL Specimen Performing Laboratory Blood - Arm, [address] [address] after 12/19/2016
[2017-12-20 21:21] LABS: Absolute Lymphocytes (CBC) 2.9 K/uL (0.7-4.9); Absolute Monocytes 1.2 K/uL (0.1-1.3); Absolute Neutrophil 12.5 K/uL (1.8-8.0); Basophils % 1.1 % (0-1.3); Eosinophils % 1.1 % (0-4.4); Hematocrit 40.3 % (39.6-49.0); Lymphocytes % 17.2 % (15.3-44.8); MCH 33.5 pg (27.0-35.0); MCV 99.7 fL (80-100); MPV 7.1 fL (7.6-11.3); Monocytes % 7.3 % (3.3-12.3); RBC Red Blood Cell Count 4.04 M/uL (4.33-5.43)
[2017-12-20 21:24] LABS: Protime INR 1.9
[2017-12-20 21:33] LABS: Barbiturates NEGATIVE (NEGATIVE); Benzodiazepines NEGATIVE (NEGATIVE); Cocaine NEGATIVE (NEGATIVE); METHAMPHETAM NEGATIVE (NEGATIVE); Methadone NEGATIVE (NEGATIVE); Opiates NEGATIVE (NEGATIVE); Phencyclidine NEGATIVE (NEGATIVE); THC Cannibis NEGATIVE (NEGATIVE)
[2017-12-20 22:24] LABS: Urine Blood NEGATIVE (NEG); Urine Glucose NEGATIVE (NEG); Urine Protein NEGATIVE (NEG); Urine pH 5.5 (5.0-7.0)
[2017-12-20 22:34] LABS: ALT/SGPT 41 U/L (12-78); AST/SGOT 24 U/L (15-37); Alkaline Phosphatase 122 U/L (45-117); BUN Blood Urea Nitrogen 23 mg/dL (7-18); Bicarbonate 25 mmol/L (21-32); Bilirubin Direct < 0.1 mg/dL (0-0.2); Bilirubin Total 0.2 mg/dL (0.2-1.0); Glucose Level 100 mg/dL (74-106); Potassium 4.5 mmol/L (3.5-5.1); Sodium Level 141 mmol/L (136-145)
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
[2017-12-21 06:46] VITALS: TEMP 97.9
[2017-12-21 06:48] VITALS: BP 121/65; O2SAT 97
--- NOTE | 2017-12-21 06:50 | EKG ---
Test Date: 2017-12-20 Test Time: 20:11:53 Library Science Professor: DANYELL MEASUREMENT RESULTS: Intervals: Rate: 60 CT: 192 QRSD: 106 QT: 464 QTc: 464 [place]: P: -6 CT: 192 QRS: 218 T: 68 INTERPRETIVE STATEMENTS: AV dual-paced rhythm Abnormal ECG Compared to ECG 11/09/2017 00:27:49 Sinus rhythm no longer present Myocardial infarct finding no longer present Electronically Signed On 12-21-17 06:49:39 CDT by Kristopher Fregoso
== END 2017-12-21 06:39 | disposition home or self-care (01) ==
LOC: ER 19:47
DX: Z76.5 Malingerer [conscious simulation] (principal); F41.9 Anxiety disorder, unspecified; Z95.0 Presence of cardiac pacemaker; Z79.01 Long term (current) use of anticoagulants; Z88.5 Allergy status to narcotic agent; Z88.6 Allergy status to analgesic agent; Z88.8 Allergy status to other drugs, medicaments and biological substances
CPT/HCPCS: 36415; 80048; 80076; 80307; 80320; 80329; 81003; 84484; 85025; 85610; 85730; 93005; 99284

== ENCOUNTER 2017-12-21 07:48 | Emergency (ER) | payer OTHER ==
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
[2017-12-21 08:41] VITALS: BP 119/67; TEMP 97.2; O2SAT 98
--- OUTSIDE RECORDS SUMMARY | 2017-12-21 09:06 | XMS REPORT | Clinical Summary ---
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 LV Vol Index s bpmod BSA Lesage 74.18 ml/m2 [facility] PV Vmn 29.02 [...] is 55 - 60%. Performing Organization Address [facility] [place] [place] Phone Number [facility] [address] [place] [address] Cv stress procedure (06/30/2017 9:50 AM) Resting HR 63 [facility] MUSE Resting BP [facility] MUSE Peak MET Achieved 7.0 [facility] MUSE Protocol Name [facility] MUSE Time in Exercise Phase 00:05:16 H MUSE Max Systolic BP 160 [facility] MUSE Max Diastolic BP 82 [facility] MUSE Max Heart Rate 88 [facility] MUSE Max Predicted Heart Rate 161 [facility] MUSE Target HR Formula (220 - Age)*100% [facility] MUSE Test Indication [facility] MUSE Arrhy During Ex H MUSE ECG Interp Before EX [facility] MUSE ECG Interp During Ex H MUSE Ex Summary Comment [facility] MUSE Overall HR Response to [facility] MUSE Exercise Overall BP Response To [facility] MUSE Exercise Reason for Termination [facility] MUSE Stress Test Impression Waveform interpreted in report [facility] MUSE associated with image study. No interpretation is provided as part of this Stress ECG report.-- Performing Organization Address City/State/Zipcode Phone Number [facility] YNBF [address] [place] [address] Echocardiogram complete w contrast and 3D if [...] LA Ao Ratio Mmode 1.16 [facility] [place] End [place] Grad 8.27 [facility] [place] End Diat Arthur 1.44 [facility] D [...] LV EF,BP 44.51 % [facility] [place],d A2C 8.50 cm [facility] [place],d A4C 8.54 cm [facility] [place],s A2C 7.79 cm [facility] [place],s A4C 7.12 cm [facility] LV SV,A2C [...] Address City/State/Zipcode Phone Number [facility] [address] [place] [address] CRITICAL CARE (06/28/2017 1:01 PM) Narrative Performed [...] Xa, unfractionated 0.39Comment: 0.30 - 0.70 U/mL [facility] DEPARTMENT OF Therapeutic Range: PATHOLOGY AND GENOMIC 0.30 - 0.70 U/mL MEDICINE Specimen Blood Performing Organization Address City/State/Zipcode Phone Number [facility] DEPARTMENT OF PATHOLOGY AND [address] [place] [address] [facility] CBC hemogram (06/18/2017 5:19 AM) WBC 11.36 (H) 4.50 - 11.00 k/uL [facility] DEPARTMENT OF PATHOLOGY AND GENOMIC MEDICINE RBC 3.49 (L) 4.40 - 6.00 m/uL [facility] DEPARTMENT OF PATHOLOGY AND GENOMIC MEDICINE HGB 11.6 (L) 14.0 - 18.0 g/dL [facility] DEPARTMENT OF PATHOLOGY AND GENOMIC MEDICINE HCT 36.2 (L) 41.0 - 51.0 % [facility] DEPARTMENT OF PATHOLOGY AND GENOMIC MEDICINE MCV 103.7 (H) 82.0 - 100.0 fL [facility] DEPARTMENT OF PATHOLOGY AND GENOMIC MEDICINE MCH 33.2 27.0 - 34.0 pg [facility] DEPARTMENT OF PATHOLOGY AND GENOMIC MEDICINE MCHC 32.0 31.0 - 37.0 g/dL [facility] DEPARTMENT OF PATHOLOGY AND GENOMIC MEDICINE RDW - SD 54.7 37.0 - 55.0 fL [facility] DEPARTMENT OF PATHOLOGY AND GENOMIC MEDICINE MPV 9.4 8.8 - 13.2 fL [facility] DEPARTMENT OF PATHOLOGY AND GENOMIC MEDICINE Platelet count 347 150 - 400 k/uL [facility] DEPARTMENT OF PATHOLOGY AND GENOMIC MEDICINE Nucleated RBC 0.00 /100 WBC [facility] DEPARTMENT OF PATHOLOGY AND GENOMIC MEDICINE Specimen Blood Performing Organization Address City/State/Zipcode Phone Number [facility] DEPARTMENT OF PATHOLOGY AND [address] [place] [address] GENOMIC MEDICINE Echocardiogram complete w contrast and [...] [facility] AoV area i VTI BSA Lesage 2.13 cm2/m2 [facility] MR peak grad [...] LV FS Teich 2D 29.66 [facility] [place] End [place] Grad 1.31 [facility] [place] End Diat Arthur 6.35 [facility] D [...] LV EF,BP 56.89 % [facility] [place],d A2C 7.92 cm [facility] [place],d A4C 7.11 cm [facility] [place],s A2C 6.39 cm [facility] [place],s A4C 5.20 cm [facility] LV SV,A2C 91.99 % [facility] LV SV,A4C 50.96 % [facility] LV SV,BP 70.02 % [facility] LV Vol,d BP 123.07 ml [facility] LV Vol,s BP 53.05 nl [facility] LV SI MOD BP BSA Lesage 34.87 ml/m2 [facility] LV Vol Index [...] left ventricular diastolic filling. Performing Organization Address [facility] [place] [place] Phone Number [facility] [address] [place] [address] PV duplex venous lower extremity (06/16/2017 3:50 PM) Narrative Performed At The right lower extremity was positive for deep vein thrombosis in the [facility] femoral vein and popliteal vein. The left lower extremity was positive for deep vein thrombosis in the popliteal vein. Performing Organization Address [facility] [place] [place] Phone Number [facility] [address] [place] [address] CT Angiogram Pe Chest (06/15/2017 6:28 PM) [...] Dr. NATHALY HAWK at 06/15/2017 6:59 PM. [facility]-[id number] Procedure Note [facility], Radiology Results [facility] - 06/15/2017 7:03 PM CDT EXAMINATION: CT [...] Dr. NATHALY HAWK at 06/15/2017 6:59 PM. [facility]-[id number] Performing Organization Address City/State/Zipcode Phone Number [facility] [address] [place] [address] D-dimer (06/15/2017 2:56 PM) D-dimer 0.87 (H) 0.00 - 0.40 ug/mL FEU [facility] DEPARTMENT OF Comment: PATHOLOGY AND GENOMIC Units [...] and malignancies. Specimen Blood Performing Organization Address [facility] Phone Number [facility] DEPARTMENT OF PATHOLOGY AND [address] [place] [address] GENOMIC MEDICINE CRITICAL CARE (06/15/2017 2:50 PM) [...] this patient from another provider.: no after 12/20/2016 Insurance Payer Benefit Plan / Group Subscriber ID Type Phone Address [employer] xxxxxxxxx O [phone] [address]
--- OUTSIDE RECORDS SUMMARY | 2017-12-21 09:06 | XMS REPORT | Clinical Summary ---
:1960 Author Organization [facility] Address [address] [place] [address] Phone Care Team Providers Name Role Phone [...] Problem Noted Date Atrial fibrillation with RVR ([facility]) 10/10/2014 Chronic pain 03/31/2014 History of pulmonary embolism 03/30/2014 Schizophrenia ([facility]) 03/30/2014 Tobacco abuse 03/30/2014 Marijuana abuse [...] 09/21/2017 Orders Only General Internal Medicine after 12/20/2016 Social History Tobacco Use Types Packs/Day Years [...] MD Report Verified Date/Time:10/11/2017 02:50:02 Reading Location: [address] Reading Room Procedure Note Interface, External [...] the detection of acute ischemia. Signed: Bashir Paalcios MD Report Verified Date/Time: 10/11/2017 02:50:02 Reading Location: [address] Reading Room chest 1 view portable [...] MD Report Verified Date/Time:10/11/2017 02:20:28 Reading Location: [address] Body Reading Room Procedure Note [...] Report Verified Date/Time: 10/11/2017 02:20:28 Reading Location: [address] Body Reading Room with platelet [...] - 1 % Specimen Performing Laboratory Blood [address] [address] Troponin I (10/11/2017 2:06 AM)Only the most recent of2 resultswithin the time period is included. Component Value Ref Range Troponin I 0.01 0.00 - 0.03 ng/mL Specimen Performing Laboratory Blood [address] [address] Narrative Troponin I (TnI) levels must be [...] Status --------- ------ CBC with platelet count ...[[id number]]Abnormal Edited Result - FINAL Please view results for these tests on the individual orders. Creatine Kinase (CK), Total and MB (10/11/2017 2:06 AM)Only the most recent of2 resultswithin the time period is included. Component Value Ref Range Total CK 119 29 - 200 U/L CK-MB 3.1 0.0 - 6.6 ng/mL MB Relative Index 2.6 % Specimen Performing Laboratory Blood [address] [address] Narrative CK-MB Reference Range: <6.7Normal 6.7-10.0Borderline >10.0 Abnormal Ethanol (10/11/2017 2:06 AM) Component Value Ref Range Ethanol Lvl <10 <=10 mg/dL Specimen Performing Laboratory Blood [address] [address] Basic Metabolic Panel (10/11/2017 2:06 AM)Only the [...] APPLICABLE FOR DIALYSIS PATIENTS. Specimen Performing Laboratory [address] [address] ECG 12 lead (10/11/2017 1:56 AM)Only the most recent of2 resultswithin the time period is included. Specimen Performing Laboratory GE MUSE Narrative Ventricular Rate 60 BPM Atrial Rate 60 BPM P-R Interval 82 ms QRS Duration 132 ms Q-T Interval 490 ms QTC Calculation(Bazett) 490 ms P Ashton 24 degrees R Ashton 214 degrees T Ashton 79 degrees Atrial-sensed ventricular-paced rhythm When compared with ECG of 21-SEP-2017 21:03, No significant changes Confirmed by Mateo HUGGINS BASANT ([id number]) on 10/11/2017 12:40:56 PM Procedure Note Interface, External Ris In - 10/11/2017 12:41 PM CDT Ventricular Rate 60 BPM Atrial Rate 60 BPM P-R Interval 82 ms QRS Duration 132 ms Q-T Interval 490 ms QTC Calculation(Bazett) 490 ms P [place] 24 degrees R [place]hton 214 degrees T [place] 79 degrees Atrial-sensed ventricular-paced rhythm When compared with ECG of 21-SEP-2017 21:03, No significant changes Confirmed by Mateo HUGGINS BASANT ([id number]) on 10/11/2017 12:40:56 PM ED ECG Interpretation (09/22/2017 6:07 PM) Qiunn Quan MD 09/22/20176:07 PM ECG/EKG Interpretation Date/Time: [...] seconds Specimen Performing Laboratory Blood - Arm, [address] [address] Narrative RECOMMENDED COUMADIN/WARFARIN INR THERAPY RANGES STANDARD DOSE: 2.0 - 3.0 Includes: PROPHYLAXIS for venous thrombosis, systemic embolization; TREATMENT for venous thrombosis and/or pulmonary embolus. HIGH RISK: Target INR is 2.5-3.5 for patients with mechanical heart valves. Magnesium (09/21/2017 10:15 PM) Component Value Ref Range Magnesium 2.3 1.6 - 2.6 mg/dL Specimen Performing Laboratory Blood - Arm, [address] [address] after 12/20/2016
--- OUTSIDE RECORDS SUMMARY | 2017-12-21 09:07 | XMS REPORT ---
:1960 [facility] Address [address] [place] [address] Care Team Providers Name Role Phone ER, [...] 11-11 00:00: 00 codeine DA Active U 11-11 00:00: 00 ibuprofen DA Active U 2018-0 9-13 00:00: 00 tramadol DA Active SV 0 9-13 00:00: 00 codeine DA Active U 2017-0 9-07 00:00: 00 nitroglycerin DA Active SV 0 9-02 00:00: 00 ibuprofen DA Active U 0 9-02 00:00: 00 tramadol DA Active SV 0 9-02 00:00: 00 nitroglycerin DA Active SV 0 827 00:00: 00 ibuprofen DA Active U 0 827 00:00: 00 tramadol DA Active SV 0 827 00:00: 00 Medications This patient has no known medications. Results Test Description Test Time Test Comments Text Results Atomic Results Result Comments CT, BRAIN, 2017-10-11 Reason for exam:->CHEST FINAL REPORT PATIENT ID: WITHOUT CONTRAST 02:50:00 PAINReason for [id number] CLINICAL exam:->FALLWhat is the HISTORY: Trauma and [...] MDReport Verified Date/Time: 10/11/2017 02:50:02 Reading Location: [address] Reading Room TINE KINASE (CK), TOTAL AND MB 2017-10-11 02:46:00 Test Item Value Reference Range Comments CREATINE KINASE TOTAL (BEAKER) (test dlyq=177) 119 U/L 29-200 CREATINE KINASE-MB (BEAKER) (test agkw=403) 3.1 ng/mL 0.0-6.6 CREATINE KINASE-MB INDEX (BEAKER) (test fivg=111) 2.6 % CK-MB Reference Range:<6.7 Normal6.7-10.0 Borderline>10.0 AbnormalTROPONIN [id number] 02:46:00 Test Item Value Reference Range Comments TROPONIN I (BEAKER) (test lmfu=230) 0.01 ng/mL 0.00-0.03 Troponin I (TnI) levels [...] and persistent tachyarrhythmia.CBC W/PLT COUNT & AUTO [id number] 02:43:00 Test Item Value Reference Range Comments WHITE BLOOD CELL COUNT (BEAKER) (test lutn=733) 18.9 K/ L 3.5-10.5 RED BLOOD CELL COUNT (BEAKER) (test rika=176) 3.20 M/ L 4.63-6.08 HEMOGLOBIN (BEAKER) (test zxyt=971) 10.6 GM/DL 13.7-17.5 HEMATOCRIT (BEAKER) (test llrn=652) 33.0 % 40.1-51.0 MEAN CORPUSCULAR VOLUME (BEAKER) (test wngg=706) 103.1 fL 79.0-92.2 MEAN CORPUSCULAR HEMOGLOBIN (BEAKER) (test 33.1 pg 25.7-32.2 cnmc=928) MEAN CORPUSCULAR HEMOGLOBIN CONC (BEAKER) (test 32.1 GM/DL 32.3-36.5 nhxu=484) RED CELL DISTRIBUTION WIDTH (BEAKER) (test 14.8 % 11.6-14.4 msws=443) PLATELET COUNT (BEAKER) (test iogx=923) 412 K/CU MM 150-450 MEAN PLATELET VOLUME (BEAKER) (test xcwt=459) 8.7 fL 9.4-12.4 NUCLEATED RED BLOOD CELLS (BEAKER) (test 0 /100 WBC 0-0 dxhu=476) NEUTROPHILS RELATIVE PERCENT (BEAKER) (test 56 % mggf=399) LYMPHOCYTES RELATIVE PERCENT (BEAKER) (test 34 % bbyi=490) MONOCYTES RELATIVE PERCENT (BEAKER) (test 7 % zrkf=048) EOSINOPHILS RELATIVE PERCENT (BEAKER) (test 2 % cvuh=990) BASOPHILS RELATIVE PERCENT (BEAKER) (test 1 % dbfo=822) NEUTROPHILS ABSOLUTE COUNT (BEAKER) (test 10.62 K/ L 1.78-5.38 mwzn=380) LYMPHOCYTES ABSOLUTE COUNT (BEAKER) (test 6.37 K/ L 1.32-3.57 uufn=282) MONOCYTES ABSOLUTE COUNT (BEAKER) (test 1.24 K/ L 0.30-0.82 rftt=614) EOSINOPHILS ABSOLUTE COUNT (BEAKER) (test 0.46 K/ L 0.04-0.54 mexp=550) BASOPHILS ABSOLUTE COUNT (BEAKER) (test 0.13 K/ L 0.01-0.08 fxyf=573) IMMATURE GRANULOCYTES-RELATIVE PERCENT (BEAKER) 1 % 0-1 (test zbqg=4753) BASIC METABOLIC [id number] 02:40:00 Test Item Value Reference Range Comments SODIUM (BEAKER) (test 141 meq/L 136-145 yxls=762) POTASSIUM (BEAKER) (test 4.2 meq/L 3.5-5.1 tgxh=057) CHLORIDE (BEAKER) (test 111 meq/L 98-107 bycd=533) CO2 (BEAKER) (test 21 meq/L 22-29 gpxi=847) BLOOD UREA NITROGEN 28 mg/dL 7-21 (BEAKER) (test emer=243) CREATININE (BEAKER) (test 1.15 mg/dL 0.57-1.25 dfmb=309) GLUCOSE RANDOM (BEAKER) 99 mg/dL 70-105 (test widx=342) CALCIUM (BEAKER) (test 9.1 mg/dL 8.4-10.2 pbdz=566) EGFR (BEAKER) (test 65 mL/min/1.73 sq m ESTIMATED GFR IS NOT kfub=9741) ACCURATE CREATININE CLEARANCE IN PREDICTING GLOMERULAR FILTRATION RATE. ESTIMATED GFR IS NOT APPLICABLE FOR DIALYSIS PATIENTS. [id number] 02:37:00 Test Item Value Reference Range Comments ETHANOL (BEAKER) (test djsu=497) < mg/dL <=10 RAD, CHEST, 1 VIEW, NON [id number] 02:20:00Reason for exam:->CHEST PAINReason for exam:->FALLShould this [...] MDReport Verified Date/Time: 10/11/2017 02:20:28 Reading Location: [address] Body Reading Room RAD, CHEST, 1 VIEW, NON [id number] 23:14:00Reason for exam:-> CHEST PAINFINAL REPORT RAD, CHEST, 1 VIEW, NON DEPT INDICATION: CHEST PAIN COMPARISON: Chest x-ray in 2016 TECHNIQUE: Single frontal view of the chest. IMPRESSION:Stable ICD leads.No cardiomegaly.Enlarged pulmonary arteries.No pneumothorax.No overt consolidative or congestive change.No acute osseous abnormality. Signed: Adenike Muñoz MDReport Verified Date/Time: 09/21/2017 23:14:36 Reading Location: [address] Reading Room 11: 14 [id number] 22:59:00 Test Item Value Reference Range Comments PROTIME (BEAKER) (test fkas=424) 16.9 seconds 11.7-14.7 INR (BEAKER) (test ibsx=833) 1.4 <=5.9 PARTIAL THROMBOPLASTIN TIME (BEAKER) (test 26.9 seconds 22.5-36.0 rtob=170) RECOMMENDED COUMADIN/WARFARIN INR THERAPY RANGESSTANDARD DOSE: 2.0 - 3.0 Includes: PROPHYLAXIS forvenous thrombosis, systemic embolization; TREATMENT for venous thrombosis and/or pulmonary embolus.HIGH RISK: Target INR is 2.5-3.5 for patients with mechanical heart valves.CREATINE KINASE (CK), TOTAL AND [id number] 22:58:00 Test Item Value Reference Range Comments CREATINE KINASE TOTAL (BEAKER) (test lhcb=851) 212 U/L 29-200 CREATINE KINASE-MB (BEAKER) (test bcxo=961) 5.0 ng/mL 0.0-6.6 CREATINE KINASE-MB INDEX (BEAKER) (test laux=997) 2.4 % CK-MB Reference Range:<6.7 Normal6.7-10.0 Borderline>10.0 AbnormalTROPONIN [id number] 22:58:00 Test Item Value Reference Range Comments TROPONIN I (BEAKER) (test ykla=018) 0.02 ng/mL 0.00-0.03 Troponin I (TnI) levels [...] failure, acidosis, acute neurological disease, and persistent tachyarrhythmia.[id number] 22:50:00 Test Item Value Reference Range Comments MAGNESIUM (BEAKER) (test jmqy=447) 2.3 mg/dL 1.6-2.6 BASIC METABOLIC [id number] 22:50:00 Test Item Value Reference Range Comments SODIUM (BEAKER) (test 140 meq/L 136-145 czvj=967) POTASSIUM (BEAKER) (test 4.5 meq/L 3.5-5.1 ucmc=944) CHLORIDE (BEAKER) (test 110 meq/L 98-107 zgft=196) CO2 (BEAKER) (test 17 meq/L 22-29 uumc=583) BLOOD UREA NITROGEN 27 mg/dL 7-21 (BEAKER) (test mxxh=370) CREATININE (BEAKER) (test 1.69 mg/dL 0.57-1.25 fsue=358) GLUCOSE RANDOM (BEAKER) 79 mg/dL 70-105 (test bxio=264) CALCIUM (BEAKER) (test 9.7 mg/dL 8.4-10.2 geuc=460) EGFR (BEAKER) (test 42 mL/min/1.73 sq m ESTIMATED GFR IS NOT zezd=7899) ACCURATE CREATININE CLEARANCE IN PREDICTING GLOMERULAR FILTRATION RATE. ESTIMATED GFR IS NOT APPLICABLE FOR DIALYSIS PATIENTS. CBC W/PLT COUNT & AUTO [id number] 22:32:00 Test Item Value Reference Range Comments WHITE BLOOD CELL COUNT (BEAKER) (test uzmi=508) 16.4 K/ L 3.5-10.5 RED BLOOD CELL COUNT (BEAKER) (test hrfw=517) 3.77 M/ L 4.63-6.08 HEMOGLOBIN (BEAKER) (test xxfe=683) 12.6 GM/DL 13.7-17.5 HEMATOCRIT (BEAKER) (test jogq=312) 37.8 % 40.1-51.0 MEAN CORPUSCULAR VOLUME (BEAKER) (test amfo=670) 100.3 fL 79.0-92.2 MEAN CORPUSCULAR HEMOGLOBIN (BEAKER) (test 33.4 pg 25.7-32.2 adrl=401) MEAN CORPUSCULAR HEMOGLOBIN CONC (BEAKER) (test 33.3 GM/DL 32.3-36.5 imhx=901) RED CELL DISTRIBUTION WIDTH (BEAKER) (test 14.5 % 11.6-14.4 uldi=988) PLATELET COUNT (BEAKER) (test ktxf=453) 376 K/CU MM 150-450 MEAN PLATELET VOLUME (BEAKER) (test iqtb=071) 8.5 fL 9.4-12.4 NUCLEATED RED BLOOD CELLS (BEAKER) (test 0 /100 WBC 0-0 ippp=092) NEUTROPHILS RELATIVE PERCENT (BEAKER) (test 54 % zkyz=211) LYMPHOCYTES RELATIVE PERCENT (BEAKER) (test 34 % aewx=158) MONOCYTES RELATIVE PERCENT (BEAKER) (test 10 % cfwx=897) EOSINOPHILS RELATIVE PERCENT (BEAKER) (test 1 % zcnz=794) BASOPHILS RELATIVE PERCENT (BEAKER) (test 1 % lumk=236) NEUTROPHILS ABSOLUTE COUNT (BEAKER) (test 8.86 K/ L 1.78-5.38 qqqw=677) LYMPHOCYTES ABSOLUTE COUNT (BEAKER) (test 5.50 K/ L 1.32-3.57 yfnd=761) MONOCYTES ABSOLUTE COUNT (BEAKER) (test 1.63 K/ L 0.30-0.82 ofnw=380) EOSINOPHILS ABSOLUTE COUNT (BEAKER) (test 0.21 K/ L 0.04-0.54 skts=586) BASOPHILS ABSOLUTE COUNT (BEAKER) (test 0.15 K/ L 0.01-0.08 rwaw=099) IMMATURE GRANULOCYTES-RELATIVE PERCENT (BEAKER) 0 % 0-1 (test fxws=7008) RPR, [id number] 13:10:00 Test Item Value Reference Range Comments RPR (test code=RPR) Non-Reactive Non-Reactive Thyroid Stimulating Hormone (TSH)2016-10-17 03:28:00 Test Item Value Reference Range Comments TSH (test code=TSH) 0.92 mIU/mL 0.270-4.200 Lipid [id number] 03:21:00 Test Item Value Reference Range Comments Cholesterol (test 117 mg/dL 0-200 code=CHOL) Triglycerides (test 131 mg/dL 9-200 code=TRIG) HDL (test code=HDL) 24 mg/dL 40-60 Chol/HDL (test 4.9 Ratio 0.0-5.0 code=CHOLPHDL) LDL, Calculated (test 67 0-130 (NOTE)RISK OF HEART code=LDLC) DISEASEPublished by [place] Heart AssociationAnalyte Optimal Boderline Increased RiskCHOL <200 200-239 >240TRIG <150 150-199 >200HDL Male: >60 <40HDL Female: >60 <50LDL <100 130-159 >160LDL NEAR OPTIMAL IS 100-129 VLDL (test code=VLDL) 26 mg/dL 5-40 LDL/HDL (test code=LDLPHDL) 3 Urinalysis [id number] 23:23:00 Test Item Value Reference Range Comments Color (test code=COLOR) Yellow Yellow,Straw,Pl yellow Clarity (test code=CLAR) Clear Clear Specific [place] (test code=SPGR) 1.014 1.001-1.035 pH (test code=PH) [...] 0-5 Bacteria (test code=BACT) Few /HPF Troponin [id number] 23:16:00 Test Item Value Reference Range Comments Troponin T (test code=BRITTANY) <0.010 ng/mL 0.000-0.090 [id number] 23:14:00 Test Item Value Reference Range Comments [...] (test <0.01 g/dL 0.00-0.01 code=ETOHU) Comprehensive Metabolic [id number] 23:14:00 Test Item Value Reference Range Comments [...] race is not provided, and the patient isAfrican-Mosotho, multiply by 1.212. If sex is not [...] the National Kidney Foundation,http://nkdep.nih .gov CBC with [id number] 23:01:00 Test Item Value Reference Range Comments [...] Lymph Abs (test code=ALYMPH) 4.5 K/cumm 0.5-4.6 King Abs (test code=AMONO) 0.9 K/cumm 0.0-1.2 Eos Abs (test code=AEOS) 0.85 K/cumm 0.00-0.74 Baso Abs (test code=ABASO) 0.2 K/cumm 0.00-0.21 Macrocytosis (test code=MACRO) Slight XR CHEST 1 [id number] 22:48:57LOCATION: [id number]: 56-year-old male with chest pain.COMMENT: After-hours service [...]
== END 2017-12-21 08:37 | disposition left against medical advice (07) ==
LOC: ER 07:48
DX: Z76.5 Malingerer [conscious simulation] (principal); Z88.5 Allergy status to narcotic agent; Z88.6 Allergy status to analgesic agent; Z88.8 Allergy status to other drugs, medicaments and biological substances
CPT/HCPCS: 99284

== ENCOUNTER 2022-02-25 15:49 | Emergency (ER) | payer OTHER ==
--- NOTE | 2022-02-25 19:07 | RAD REPORT ---
EXAM DESCRIPTION: RAD - Chest Single View - 02/25/2022 6:22 pm CLINICAL HISTORY: CHEST PAIN COMPARISON: Portable 11/09/2017 TECHNIQUE: AP portable chest image was obtained 02/25/2022 6:22 pm . FINDINGS: Lungs are clear. Interstitial pattern matches comparison. Sternotomy wires are in place. P acemaker is in place. Heart and vasculature are normal. No measurable pleural effusion and no pneumot horax. No acute bony abnormality seen. No acute aortic findings suspected. IMPRESSION: No acute cardiopulmonary process. No significant change from comparison study.
[2022-02-25 20:55] LABS: Absolute Lymphocytes (CBC) 4.2 K/uL (0.7-4.9); Hematocrit 36.1 % (39.6-49.0); Lymphocytes % 38.8 % (15.3-44.8); MCV 101.4 fL (80-100); MPV 6.6 fL (7.6-11.3); RBC Red Blood Cell Count 3.56 M/uL (4.33-5.43)
[2022-02-25 21:12] LABS: Potassium 3.9 mmol/L (3.5-5.1); Troponin High Sensitivity 9.8 pg/mL (<58.9)
[2022-02-25] MEDS ORDERED: CYANOCOBALAMIN 1000MCG/ML INJ ONE (22:18)
[2022-02-25 22:39] LABS: Urine Blood Negative (Negative); Urine Glucose Negative (Negative); Urine Protein Negative (Negative); Urine Specific Gravity 1.015 (1.005-1.030)
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
[2022-02-25 23:00] LABS: Urine Bacteria <20 /HPF (<20); Urine Mucus Slight /HPF (None Seen); Urine RBC <5 /HPF (None Seen)
[2022-02-25 23:10] LABS: Barbiturates NEGATIVE (NEGATIVE); Benzodiazepines NEGATIVE (NEGATIVE); Cocaine NEGATIVE (NEGATIVE); METHAMPHETAM NEGATIVE (NEGATIVE); Methadone NEGATIVE (NEGATIVE); Opiates NEGATIVE (NEGATIVE); Phencyclidine NEGATIVE (NEGATIVE); THC Cannibis NEGATIVE (NEGATIVE)
[2022-02-25 23:11] VITALS: TEMP 97.6; O2SAT 100
[2022-02-25 23:12] VITALS: BP 145/80
--- NOTE | 2022-02-26 17:45 | EKG ---
Test Date: 2022-02-25 Test Time: 18:14:21 Cotton Converter: EL MEASUREMENT RESULTS: Intervals: Rate: 80 DE: QRSD: 194 QT: 498 QTc: 574 Walsh: P: DE: QRS: 233 T: 82 INTERPRETIVE STATEMENTS: AV dual-paced rhythm Abnormal ECG Compared to ECG 12/20/2017 20:11:53 No significant changes Electronically Signed On 02-26-22 17:43:25 MANAGER OF PLANNING by Deni Carranza
== END 2022-02-25 23:06 | disposition home or self-care (01) ==
LOC: ER 15:49
DX: R07.89 Other chest pain (principal); G89.29 Other chronic pain; F17.210 Nicotine dependence, cigarettes, uncomplicated; Z86.711 Personal history of pulmonary embolism; Z79.01 Long term (current) use of anticoagulants; Z88.5 Allergy status to narcotic agent; Z88.6 Allergy status to analgesic agent; Z88.8 Allergy status to other drugs, medicaments and biological substances
CPT/HCPCS: 85025; 80048; 36415; 84484; 80307; 71045; J3420; 81003; 81015; 93005